=== PATIENT | female | born 1970 | race Caucasian/White ===

== ENCOUNTER → 2020-01-29 11:11 | Outpatient (BNVA) | payer MEDICARE, MEDICAID, SELFPAY | PROVIDERS: Family Provider Nurse Practitioner; Visit Provider Nurse Practitioner | DX: E04.1 Nontoxic single thyroid nodule (principal); B00.9 Herpesviral infection, unspecified; R30.0 Dysuria | CPT/HCPCS: 81000; 84439; 84443; 84481 ==

== ENCOUNTER 2020-02-19 10:42 | Outpatient (CLI) | payer MEDICARE, MEDICAID, SELFPAY ==
--- NOTE | 2020-02-19 11:00 | US_ITS ---
WS: [id number] THYROID ULTRASOUND HISTORY: nodule history COMPARISON: None available. Right lobe: 4.2 cm x 1.4 cm x 1.7 cm. Volume: 4.9 cm3. Normal size gland. Nearly isoechoic nodule in the posterior mid gland measures 1.6 x 1.0 x 0.8 cm. Du e to its size and appearance ultrasound follow-up is recommended. Left lobe: 3.7 cm x 1.2 cm x 1.0 cm. Volume: 2.3 cm3. Isoechoic nodule in the inferior pole measures 7 x 6 x 6 mm. There is an additional hypoechoic area w hich may be external to the thyroid and posterior of uncertain etiology. Isthmus: 0.3 cm. US/US thyroid [id number] IMPRESSION: 1. Bilateral thyroid nodules are isoechoic to the gland. 2. Recommend follow-up ultrasound in 6 months to document stability.
== END 2020-02-19 10:43 | disposition home or self-care (01) ==
PROVIDERS: Family Provider Nurse Practitioner; Visit Provider Nurse Practitioner
DX: E04.2 Nontoxic multinodular goiter (principal)
CPT/HCPCS: 76536

== ENCOUNTER 2020-05-16 18:42 | Inpatient (IN) | payer MEDICARE, MEDICAID, SELFPAY ==
[2020-05-16 18:48] VITALS: BP 118/73; PULSE 101; RESP 20; O2SAT 100; BMI 21.9
--- NOTE | 2020-05-16 18:48 | XR_ITS ---
WS: [id number] Portable AP upright chest, 05/16/2020 Clinical Data: cp Comparison: None. Findings: No nodules, masses or effusions are seen. The heart is normal. The pulmonary vascularity is not increased. No pneumonia or pneumothorax is seen. Monitor leads are on the chest wall. XR/XR chest 1V portable [id number] Impression: Negative chest.
--- NOTE | 2020-05-16 18:48 | ECG_ITS ---
[facility] Test Date: 2020-05-16 Pat Name: Alexandria Delgado Department: Room: 105 Gender: Female Business Information Manager: CHIARA: 1970 Requested By: Renée Spencer Order Number: [id number] Quinton MD: Yane Carias M.D. Measurements Intervals [place] Rate: 98 P: 55 LA: 135 QRS: 44 QRSD: 97 T: 42 QT: 346 QTc: 443 Interpretive Statements SINUS RHYTHM INCOMPLETE RIGHT BUNDLE BRANCH BLOCK [90+ ms QRS DURATION, TERMINAL R IN V1/V2, 40+ ms S IN I/aVL/V4/V5/V6] No previous ECG available for comparison Electronically Signed On 05-17-2020 18:08:33 CDT by Yane Carias M.D. [id number] f
--- NOTE | 2020-05-16 18:55 | W.ED.ARRPALP ---
HPI - Arrhythmia/Palpitations General: Chief Complaint: Arrhythmia/Palpitations Stated Complaint: CP/ RAPID HEART RATE Time Seen by Provider: 05/16/20 18:45 Source: patient and EMS Mode of arrival: EMS Limitations: no limitations History of Present Illness: HPI narrative: 89-year-old female who has a history of stage IV renal disease but is not currently on dialysis. She states that she did get blood work today and then when she got home she stood up and felt faint and had palpitations. States that her heart rate was in the 160s and is currently in the 110s. She had some slight chest pain. She states she does feel improved currently though. She denies any vomiting or diarrhea. Denies any chest pain. She does appear anxious. Associated symptoms: Deny nausea or vomiting Review of Systems Const: Denies: fever(s), chills, body aches or change in appetite Eyes: Denies: blurry vision or eye discomfort ENMT: Denies: throat pain or dental pain Card: Reports: palpitations Resp: Denies: dyspnea GI: Denies: abdominal pain, nausea, vomiting or diarrhea : Denies: dysuria Musc: Denies: neck pain or back pain Skin/Breast: Denies: rash Neuro: Denies: headache(s) Psych: Denies: depression Chuck/Lymph: Denies: easy bruising All/Imm: Denies: urticaria PFSH ED PFSH: Medical History Chronic hypokalemia Chronic iron deficiency anemia Chronic nonspecific colitis CKD (chronic kidney disease) stage 4, GFR 15-29 ml/min Gastric reflux Gout, unspecified Herpes simplex virus (HSV) infection History of Clostridioides difficile colitis IBS (irritable bowel syndrome) Mixed hyperlipidemia Slow transit constipation Thyroid nodule Surgical History History of section History of cholecystectomy History of parathyroidectomy History of tonsillectomy Family History Other Diabetes Hyperlipidemia Hypertension Social History Smoking and tobacco status: former smoker Second hand smoke exposure: No Smoking risk assessment/counseling performed?: No Alcohol intake: unknown Desire information about alcohol rehabilitation?: No Counseling given: No Desire information about substance/drug rehabilitation?: No Counseling given: No Caregiver/support person: No Lives independently: Yes Household members: significant other Marital status: Number of children: 3 service: No Current occupational status: disabled History of recent travel: No Current gender identity: Female Physical Exam Const: COMMON NORMALS: no acute distress, patient oriented x3 and healthy appearing HENMT: COMMON NORMALS: normocephalic and atraumatic HEAD & SCALP: normocephalic and atraumatic Eye: COMMON NORMALS: Equal, round and reactive pupils present and EOMs intact bilaterally PUPIL: Yes Equal, round and reactive pupils present Neck/C-Spine: COMMON NORMALS: full ROM and supple Chest: COMMONS NORMALS: normal inspection of the chest and normal palpation of entire chest wall Resp: COMMON NORMALS: normal respiratory effort, No retractions, No use of accessory muscles and clear to auscultation bilaterally AUSCULTATION: clear to auscultation bilaterally Cardio: COMMON NORMALS: regular rhythm and No murmurs present (Cardio) RATE: tachycardic RHYTHM: regular rhythm GI: COMMON NORMALS: Normal to inspection, nondistended, normoactive bowel sounds present, Soft to palpation, non-tender and no masses PALPATION: Yes Soft to palpation Extremity: COMMON NORMALS: normal to inspection and full ROM Neuro: COMMON NORMALS: patient oriented x3, moves all extremities and no focal motor deficits Psych: COMMON NORMALS: mental status grossly normal, Normal thought process present and cooperative THOUGHT PROCESS: Normal thought process present Skin: COMMON NORMALS: no rashes or lesions noted and no wounds GENERAL SKIN EXAM: no rashes or lesions noted Course Vital Signs: Vital signs: Vital Signs Pulse Rate 88 05/16/20 22:00 Respiratory Rate 16 05/16/20 22:00 Blood Pressure 95/71 05/16/20 22:00 Pulse Oximetry 100 05/16/20 22:00 MDM - Arrhythmia/Palpitations MDM Narrative: Medical decision making narrative: Sasha presents here with chest pain. She has had minimal chest pain here. Her delta troponin is 11 I spoke to hospitalist will admit. She has no signs of pulmonary embolism. Patient has been stable while in the ER. Lab Data: Labs: Lab Results 10/15/20 10/15/20 10/15/20 Range/Units 19:22 19:22 19:22 WBC 10.6 H (4.0-10.0) 10^3/ uL RBC 3.58 L (4.1-5.3) 10^6/u L Hgb 7.7 L (11.5-15.3) g/dL Hct 27.8 L (37.0-47.0) % MCV 77.7 L (81-99) fL MCH 21.5 L (28.0-34.0) pg MCHC 27.7 L (30.0-36.0) g/dL RDW 21.0 H (12.1-15.1) % Plt Count 395 (130-400) 10^3/c mm MPV 9.2 (7.4-10.4) fL Neut % (Auto) 76.9 % Lymph % (Auto) 13.7 % [place] % (Auto) 6.3 % Eos % (Auto) 2.1 % Baso % (Auto) 0.7 % Neut # (Auto) 8.16 H (1.8-7.7) 10^3/u L Lymph # (Auto) 1.5 (0.8-4.8) 10^3/u L [place] # (Auto) 0.7 (0.2-0.9) 10^3/u L Eos # (Auto) 0.2 (0.0-0.8) 10^3/u L Baso # (Auto) 0.1 (0.0-0.1) 10^3/u L Nucleated RBC % (a uto) 0 % Nucleated RBCs # 0.0 /100WBC Sodium 144 (136-145) mmol/L Potassium 4.5 (3.5-5.1) mmol/L Chloride 111 H (98-107) mmol/L Carbon Dioxide 22 (22-29) mmol/L Anion Gap 15.5 (5-19) BUN 42 H (6-20) mg/dL Creatinine 2.4 H (0.5-0.9) mg/dL GFR Calculation 21.5 L (90-130) mL/min Glucose 103 (65-115) mg/dL Calculated Osmolal ity 309 H (285-295) mOsm/k g Calcium 8.9 (8.5-10.5) mg/dL Total Bilirubin 0.2 (0.15-1.2) mg/dL AST 36 H (0-32) U/L ALT 37 H (0-33) U/L Alkaline Phosphata se 101 (35-105) IU/L Troponin T Baselin e 33 H (0-10) ng/L Troponin T 120 Min dania (0-10) ng/L Delta Troponin T (0-10) ABS# Total Protein 5.8 L (6.6-8.7) g/dL Albumin 3.4 L (3.5-5.2) g/dL Globulin 2.4 (1.3-4.6) g/dL 10/15/20 Range/Units 21:15 WBC (4.0-10.0) 10^3/ uL RBC (4.1-5.3) 10^6/u L Hgb (11.5-15.3) g/dL Hct (37.0-47.0) % MCV (81-99) fL MCH (28.0-34.0) pg MCHC (30.0-36.0) g/dL RDW (12.1-15.1) % Plt Count (130-400) 10^3/c mm MPV (7.4-10.4) fL Neut % (Auto) % Lymph % (Auto) % [place] % (Auto) % Eos % (Auto) % Baso % (Auto) % Neut # (Auto) (1.8-7.7) 10^3/u L Lymph # (Auto) (0.8-4.8) 10^3/u L [place] # (Auto) (0.2-0.9) 10^3/u L Eos # (Auto) (0.0-0.8) 10^3/u L Baso # (Auto) (0.0-0.1) 10^3/u L Nucleated RBC % (a uto) % Nucleated RBCs # /100WBC Sodium (136-145) mmol/L Potassium (3.5-5.1) mmol/L Chloride (98-107) mmol/L Carbon Dioxide (22-29) mmol/L Anion Gap (5-19) BUN (6-20) mg/dL Creatinine (0.5-0.9) mg/dL GFR Calculation (90-130) mL/min Glucose (65-115) mg/dL Calculated Osmolal ity (285-295) mOsm/k g Calcium (8.5-10.5) mg/dL Total Bilirubin (0.15-1.2) mg/dL AST (0-32) U/L ALT (0-33) U/L Alkaline Phosphata se (35-105) IU/L Troponin T Baselin e (0-10) ng/L Troponin T 120 Min dania 44.46 H (0-10) ng/L Delta Troponin T 11.46 H* (0-10) ABS# Total Protein (6.6-8.7) g/dL Albumin (3.5-5.2) g/dL Globulin (1.3-4.6) g/dL EKG Data^: EKG 1: Attestation: I personally reviewed and interpreted this EKG as follows: EKG interpretation date: 05/16/20 EKG interpretation time: 18:56 Interpretation: Normal sinus rhythm heart rate [address] or T wave normalities QRS 97 QTc 402 EKG 2: Attestation: I personally reviewed and interpreted this EKG as follows: EKG interpretation date: 05/16/20 EKG interpretation time: 21:14 Interpretation: Normal sinus rhythm heart rate [address] or T wave abnormalities QRS 99 QTc 414 Discharge Plan Discharge Patient Disposition: Home Clinical Impression: Chest pain Qualifiers: Chest pain type: unspecified Qualified Code(s): R07.9 - Chest pain, unspecified Condition: Stable Prescriptions: No Action potassium chloride 20 mEq tablet,ER particles/crystals PO RF: 0 prednisone 10 mg tablet PO RF: 0 omeprazole 40 mg capsule,delayed release(DR/EC) PO RF: 0 ergocalciferol (vitamin D2) 1,250 mcg (50,000 unit) capsule PO RF: 0 hydrocodone-acetaminophen 5-325 mg tablet PO RF: 0 febuxostat 40 mg tablet PO RF: 0 acyclovir 800 mg tablet 800 mg PO DAILY PRN (Reason: for cold sore) Qty: 30 RF: 2 Referrals: Zaki Banerjee FNPAditiC [Family Provider] - Coding Level of Care Code ED Material Chaser for Chg Fwd Exam Comprehensive
[2020-05-16] MEDS: sodium chloride 0.9% 500 ML 999 ML IV (19:27)
[2020-05-16] MEDS: LORazepam 2 mg/mL INJ 1 mL 0.5 MG IVP (19:27)
[2020-05-16 19:36] LABS: Basophils # 0.1 10^3/uL (0.0-0.1); Basophils % 0.7 %; Eosinophils # 0.2 10^3/uL (0.0-0.8); Eosinophils % 2.1 %; Hematocrit 27.8 % (37.0-47.0); Hemoglobin 7.7 g/dL (11.5-15.3); Lymphocytes # 1.5 10^3/uL (0.8-4.8); Lymphocytes % 13.7 %; Mean Corpuscular HGB Conc 27.7 g/dL (30.0-36.0); Mean Corpuscular Hemoglobin 21.5 pg (28.0-34.0); Mean Corpuscular Volume 77.7 fL (81-99); Mean Platelet Volume 9.2 fL (7.4-10.4); Monocytes # 0.7 10^3/uL (0.2-0.9); Monocytes % 6.3 %; Neutrophils # 8.16 10^3/uL (1.8-7.7); Neutrophils % 76.9 %; Nucleated Red Blood Cells % 0 %; Platelet Count 395 10^3/cmm (130-400); Red Blood Count 3.58 10^6/uL (4.1-5.3); White Blood Count 10.6 10^3/uL (4.0-10.0)
[2020-05-16 19:50] LABS: Alanine Aminotransferase 37 U/L (0-33); Albumin Level 3.4 g/dL (3.5-5.2); Alkaline Phosphatase 101 IU/L (35-105); Anion Gap 15.5 (5-19); Aspartate Amino Transferase 36 U/L (0-32); Blood Urea Nitrogen 42 mg/dL (6-20); Calcium 8.9 mg/dL (8.5-10.5); Carbon Dioxide 22 mmol/L (22-29); Chloride 111 mmol/L (98-107); Globulin 2.4 g/dL (1.3-4.6); Glomerular Filtration Rate 21.5 mL/min (90-130); Glucose 103 mg/dL (65-115); Osmolality Calculated 309 mOsm/kg (285-295); Potassium 4.5 mmol/L (3.5-5.1); Sodium 144 mmol/L (136-145); Total Bilirubin 0.2 mg/dL (0.15-1.2); Total Protein 5.8 g/dL (6.6-8.7); Troponin(5th) Baseline 33 ng/L (0-10)
--- NOTE | 2020-05-16 20:48 | ECG_ITS ---
[facility] Test Date: 2020-05-16 Pat Name: Alexandria Delgado Department: Room: 105 Gender: Female Hand Edger: : 1970 Requested By: Renée Spencer Order Number: [id number] Quinton MD: Yane Carias M.D. Measurements Intervals [place] Rate: 85 P: 54 NV: 142 QRS: 47 QRSD: 99 T: 43 QT: 372 QTc: 443 Interpretive Statements SINUS RHYTHM No previous ECG available for comparison Electronically Signed On 05-17-2020 18:19:07 CDT by Yane Carias M.D. [id number]
[2020-05-16 21:28] VITALS: BP 99/52; PULSE 84; RESP 16; O2SAT 100
[2020-05-16 21:49] LABS: Troponin 5 2HR 44.46 ng/L (0-10)
[2020-05-16 21:51] LABS: Troponin 5 2HR Delta 11.46 ABS# (0-10)
[2020-05-16 22:00] VITALS: BP 95/71; PULSE 88; RESP 16; O2SAT 100
--- NOTE | 2020-05-16 22:24 | P.HP_ITS ---
Providers/Chief Complaint Chief Complaint: CP/ RAPID HEART RATE History of Present Illness Alexandria Delgado is a 49 year old female who carries history of chronic kidney disease stage IV currently following up with security systems integrator, anemia of chronic disease, without any previous history of coronary disease came in with chief complaint of chest pain. Patient is stating that her chest pain started today which he describes as pressure-like sensation, left-sided, substernal, lasted for about 2 to 3 hours then she started experiencing palpitations, her chest pain was radiating towards left shoulder and arm, nitroglycerin and morphine helped her symptoms. She did not notice any nausea, vomiting, shortness of breath. She has been experiencing headache with her palpitations, no blurry vision or signs of meningismus. At home when she checked her heart rate it was above 200, however in the ER her heart rate is in 90s. Her chest pain at the time of evaluation is 4/10 has received third nitroglycerin and morphine. Diagnostics in the ER revealed significant delta troponin, creatinine around baseline, anemia of chronic disease, EKG does not show ischemic or infarctive changes, in the ER she has received morphine multiple doses, nitroglycerin, aspirin 324 mg, Review of Systems Const: Reports: body aches and fatigue; Denies: fever(s) or chills Eyes: Denies: change in vision ENMT: Denies: throat pain Card: Reports: chest pain and palpitations; Denies: dyspnea on exertion or orthopnea Resp: Denies: dyspnea GI: Denies: abdominal pain : Denies: flank pain Musc: Denies: neck pain Skin/Breast: Denies: rash Neuro: Denies: headache(s) Psych: Reports: anxiety Endo: Denies: polyuria Chuck/Lymph: Denies: easy bruising All/Imm: Denies: urticaria Medications/Allergies Home Medications Medication Instructions Recorded Confirmed Last Taken Type acyclovir 800 mg tablet 800 mg PO DAILY PRN #30 tab 01/29/20 01/29/20 Unknown Rx ergocalciferol (vitamin D2) 1,250 ea PO 01/29/20 01/29/20 Unknown History mcg (50,000 unit) capsule febuxostat 40 mg tablet ea PO 01/29/20 01/29/20 Unknown History hydrocodone 5 mg-acetaminophen 325 tab PO 01/29/20 01/29/20 Unknown History mg tablet omeprazole 40 mg capsule,delayed mg PO 01/29/20 01/29/20 Unknown History release potassium chloride 20 mEq meq PO 01/29/20 01/29/20 Unknown History tablet,extended release(part/cryst) prednisone 10 mg tablet ea PO 01/29/20 01/29/20 Unknown History Allergies Allergy/AdvReac Type Severity Reaction Status Date / Time clindamycin Allergy Unknown Unknown Verified 05/16/20 18:56 diphenhydramine Allergy Unknown Unknown Verified 05/16/20 18:56 [From Benadryl] ferumoxytol [From Feraheme] Allergy Unknown Unknown Verified 05/16/20 18:56 fluconazole [From Diflucan] Allergy Unknown Unknown Verified 05/16/20 18:56 flurbiprofen [From Ansaid] Allergy Unknown Unknown Verified 05/16/20 18:56 PFSH Acute PFSH: Medical History Chronic hypokalemia Chronic iron deficiency anemia Chronic nonspecific colitis CKD (chronic kidney disease) stage 4, GFR 15-29 ml/min Gastric reflux Gout, unspecified Herpes simplex virus (HSV) infection History of Clostridioides difficile colitis IBS (irritable bowel syndrome) Mixed hyperlipidemia Slow transit constipation Thyroid nodule Surgical History History of section History of cholecystectomy History of parathyroidectomy History of tonsillectomy Family History Other Diabetes Hyperlipidemia Hypertension Social History Smoking and tobacco status: former smoker Second hand smoke exposure: No Smoking risk assessment/counseling performed?: No Alcohol intake: unknown Desire information about alcohol rehabilitation?: No Counseling given: No Desire information about substance/drug rehabilitation?: No Counseling given: No Caregiver/support person: No Lives independently: Yes Household members: significant other Marital status: Number of children: 3 service: No Current occupational status: disabled History of recent travel: No Current gender identity: Female Vitals/I&O/Wt Last Vital Signs Pulse 88 05/16/20 22:00 Resp 16 05/16/20 22:00 BP 95/71 05/16/20 22:00 Pulse Ox 100 05/16/20 22:00 Weight last 48 hrs Weight 59.874 kg Physical Exam Narrative: EXAM NARRATIVE: Middle-age female, appears more than stated age Was saturating well on room air when I entered the room Seemed to be in distress and was describing chest pain 4/10 S1, S2, I do not appreciate any murmur, no tachycardia or heart failure, heart rate in 90s, blood pressure 118 mmHg Abdomen soft nontender bowel sound present Lungs are clear to auscultation No active fluid overloaded state Skin without any ulcer or gangrene EOMI, PERRLA No neurological deficit Appropriate mood and affect Data : 05/16/20 19:22 05/16/20 19:22 A&P Assessment and plan (1) Unstable angina: Typical chest pain, unstable angina, Without ischemic or infarct changes on EKG, significant delta troponin, I am still waiting on 6-hour troponin, At this point she will need coronary angiogram but because of chronic kidney disease and creatinine around 2.4 it has to be coordinated between her security systems integrator and food service team member, I would pursue Lexiscan stress test along with echocardiogram I would not initiate N STEMI protocol at this point, serial EKGs and troponins, Monitor closely on cardiac telemetry floor, if chest pain becomes persistent my threshold to start heparin will be low Status: Acute (2) Anemia of chronic disease: No active GI bleed, recent colonoscopy revealed hemorrhoids, 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 after midnight Full code History of gout: Hold febuxostat and steroids Attestations Medical Necessity Statement*: Anticipating discharge in less than 48 hours currently I am admitting to rule out coronary ischemia with Lexiscan stress test for unstable angina, her stay in the hospital with further be decided after Lexiscan stress test Time Spent in Patient Care: (>than 50% of time spent in counselling and/or direct pt care on unit) . 50mins Coding Level of Care Code Acute Mortgage Manager for Chg Fwd Diagnoses Unstable angina I20.0 Anemia of chronic disease D63.8
[2020-05-16] MEDS: morphine 4 mg/mL SDV 1 mL IVP (22:26)
[2020-05-16 23:08] VITALS: BP 105/66; PULSE 86; RESP 16; O2SAT 99
[2020-05-16] MEDS: nitroglycerin 0.4 mg sublingual Tablet SUBLINGUAL (23:13)
[2020-05-16 23:38] VITALS: BP 118/77; PULSE 90; RESP 20; TEMP 36.6; O2SAT 100
--- NOTE | 2020-05-16 23:48 | PC.NURSE ---
Called Dr. Hair regarding patients chest pain 11/09 that is radiating to her shoulder. reported her current set of vitals signs. Orders received for 2mg of Morphine IVP x1.
[2020-05-17] VITALS (15 sets, daily range): BP systolic 90–136; BP diastolic 56–86; PULSE 81–99; RESP 14–20; TEMP 36.3–37.1; O2SAT 91–100
--- NOTE | 2020-05-17 00:37 | PC.NURSE ---
Dr. Hair notified of patients chest pain unrelieved by 2mg of Morphine IVP. Patient rates it a 5 to 6 out of 10. NO orders received at this time. Will await new orders.
[2020-05-17 00:49] LABS: D Dimer 0.79 ug/mIFEU (0-0.59)
[2020-05-17 01:01] LABS: Basophils # 0.1 10^3/uL (0.0-0.1); Basophils % 0.9 %; Eosinophils # 0.3 10^3/uL (0.0-0.8); Eosinophils % 2.2 %; Hematocrit 28.3 % (37.0-47.0); Hemoglobin 7.7 g/dL (11.5-15.3); Lymphocytes # 1.7 10^3/uL (0.8-4.8); Lymphocytes % 14.4 %; Mean Corpuscular HGB Conc 27.2 g/dL (30.0-36.0); Mean Corpuscular Hemoglobin 21.2 pg (28.0-34.0); Mean Corpuscular Volume 77.7 fL (81-99); Mean Platelet Volume 8.7 fL (7.4-10.4); Monocytes # 0.8 10^3/uL (0.2-0.9); Monocytes % 7.2 %; Neutrophils # 8.63 10^3/uL (1.8-7.7); Neutrophils % 74.9 %; Nucleated Red Blood Cells % 0 %; Platelet Count 401 10^3/cmm (130-400); Red Blood Count 3.64 10^6/uL (4.1-5.3); Red Cell Distribution Width 21.2 % (12.1-15.1); White Blood Count 11.5 10^3/uL (4.0-10.0)
[2020-05-17 01:16] LABS: Anion Gap 14.3 (5-19); Blood Urea Nitrogen 40 mg/dL (6-20); Calcium 8.5 mg/dL (8.5-10.5); Carbon Dioxide 21 mmol/L (22-29); Chloride 109 mmol/L (98-107); Glomerular Filtration Rate 21.5 mL/min (90-130); Glucose 104 mg/dL (65-115); Osmolality Calculated 300 mOsm/kg (285-295); Potassium 4.3 mmol/L (3.5-5.1); Sodium 140 mmol/L (136-145)
[2020-05-17 01:17] LABS: Troponin 5 6HR 41.63 ng/L (0-10); Troponin 5 6HR Delta 8.63 ng/L (0-12)
--- NOTE | 2020-05-17 04:47 | PC.NURSE ---
Patient complaint of chest pain rated a 6 or a 7. States Morphine does not help with her pain. Called Dr. Hair and he is going to place orders.
[2020-05-17] MEDS: lidocaine 2% viscous 15 ML, aluminum-mag hydrox-simethicon 30 ML, sucralfate oral liq 1 GM PO (05:03)
--- NOTE | 2020-05-17 05:10 | PC.NURSE ---
Spoke with Dr. Hair reguarding patients blood pressure 90/58 and 2mg of Diludid order. Orders to give 1mg of Diludid IVP x1 if blood pressure is soft. Read back verbal order.
[2020-05-17] MEDS: HYDROmorphone 1 mg/mL INJ 1 mL IVP (05:14)
--- NOTE | 2020-05-17 06:20 | NMCV_ITS ---
NM michi perf SPECT r/s* [id number] Alexandria Delgado Age: 49 Gender: F : 1970 Exam Date: 05/17/2020 06:58 Ordering Phys: Chuckie Hair MD Technologist: ERNESTINE Dao Exam Location: [facility] Indications: CHEST PAIN/ RAPID HEART RATE STRESS TEST Please see separate stress test report in [facility] for full findings IMAGE PROTOCOL Rest/Stress 1 Radiopharmaceutical Dose (mCi) Administration Site Administered by Rest: Tc-99m 10.8 IV ERNESTINE Dao Sestamibi Stress:Tc-99m 32.7 IV ERNESTINE Alvarado Sestamibi Rest: 17-May-2020 60 Discovery 630 Stress: 17-May-2020 30 Discovery 630 A small to moderate area SPECT RESULTS Technical Quality: Good Raw Data Analysis: Subdiaphragmatic activity Image Corrections: No attenuation or motion correction applied Summed Stress Score: 5 Summed Rest Score: 9 Summed Difference Score: 0 PERFUSION FINDINGS Small to moderate area of decreased tracer uptake in the inferior, inferolateral and apical lateral region regions with subtle area of reversibility with respect to the supine imaging. However with respect to the prone imaging, there was no significant reversible defects. FUNCTIONAL RESULTS (calculated via Gated SPECT) Stress Image LV EF (%): 82 Stress EDV (mL):89 TID: 1.33 Stress ESV (mL):16 FUNCTIONAL FINDINGS: Segmental wall motion analysis revealing no gross wall motion abnormalities. IMPRESSIONS 1. Myocardial perfusion imaging revealing a small to moderate area of inconsistent reversible defect in the inferolateral regions, suggestive of myocardial scarring with possible carolyn-infarction ischemia in the distribution of the right coronary artery/circumflex artery. The elevated transient ischemic dilatation ratio may suggest endocardial ischemia. The reliability of this finding is questionable. 2. Normal LV ejection fraction of 82%. 3. LV wall motion analysis revealing no gross wall motion normalities. 4. Normal LV volume. No similar previous studies are viral for comparison Dr Peri Martinez MD FAC (Electronically Signed) Final Date: 17 May 2020 11:26 S
--- NOTE | 2020-05-17 07:15 | PC.NURSE ---
Patient taken to nuclear medicine.
[2020-05-17] MEDS: regadenoson 0.4 Mg/5 ml Syringe IVP (07:48)
[2020-05-17] MEDS: aminophylline 25 mg/mL SDV 10 mL IVP ×3 (08:05→08:28)
[2020-05-17] MEDS: nitroglycerin 0.4 mg sublingual Tablet SUBLINGUAL ×3 (08:28→09:25)
--- NOTE | 2020-05-17 09:21 | PC.NURSE ---
Patient c/o pain in left chest and arm. 12/09. Patient states pain is different from admission and started after stress test.
[2020-05-17] MEDS: aspirin 81 mg EC Tablet PO (09:25)
[2020-05-17] MEDS: sennosides-docusate Tablet 1 TAB PO (09:25)
[2020-05-17] MEDS: pantoprazole DR 40 mg Tablet PO (09:25)
[2020-05-17] MEDS: heparin 5,000 unit/mL INJ 1 mL 5000 UNIT SUBCUT ×2 (09:26)
[2020-05-17] MEDS: pneumococcal (23 valent) SDV 0.5 mL IM (09:31)
--- NOTE | 2020-05-17 09:46 | ECG_ITS ---
[facility] Test Date: 2020-05-17 Pat Name: Alexandria Delgado Department: Room: 105 Gender: Female Scalper Operator: : 1970 Requested By: Reddy Lea Order Number: [id number] Quinton MD: Yane Carias M.D. Measurements Intervals [place] Rate: 93 P: 51 NV: 114 QRS: 24 QRSD: 101 T: 36 QT: 350 QTc: 435 Interpretive Statements SINUS RHYTHM WITH SHORT NV INTERVAL Compared to ECG 05/16/2020 21:14:36 Short NV interval now present Electronically Signed On 05-17-2020 17:57:07 CDT by Yane Carias M.D. [id number]
--- NOTE | 2020-05-17 10:12 | ECG_ITS ---
[facility] Test Date: 2020-05-17 Pat Name: Alexandria Delgado Department: Room: 105 Gender: Female Data Modeling Specialist: : 1970 Requested By: Chuckie Hair Order Number: [id number] Quinton MD: Peri Martinez M.D. Interpretive Statements NAME OF STUDY: LEXISCAN SESTAMIBI STRESS TEST INDICATION: Angina, PROCEDURE: At the baseline, the EKG revealed normal sinus rhythm with incomplete right bundle branch block pattern. Normal ST-T's. The baseline blood pressure was 120/83 mm Hg with a heart rate of 79 beats/min. Lexiscan was infused over a period of 20 seconds. A total of 0.4 milligrams of Lexiscan was infused. The stress phase was continued for a total of 5 minutes. Heart rate at the end of the stress phase was 104 with a blood pressure 126/81. The EKG at the peak infusion revealed no significant changes. Sestamibi was injected 20 seconds after the Lexiscan infusion. Patient had a chest pain with Lexiscan infusion. Was given sublingual nitro x1 and Aminophyllin total of 75 mg IV. Symptoms resolved Blood pressure at the end of the recovery phase was 107/82 with a heart rate of 99 per minute. CONCLUSION: 1. Nonspecific ST-T changes with the LexiScan infusion 2. No LexiScan induced chest pain or cardiac arrhythmia 3. Normal blood pressure and heart rate response 4. Sestamibi/sestamibi perfusion scan pending; see separate report. Electronically Signed On 05-20-2020 21:54:44 CDT by Peri Martinez M.D. [email or web address]/[id number]
--- NOTE | 2020-05-17 10:45 | PC.NURSE ---
Dra Lea at bedside. Patient reports continued chest pain. Described as uncomfortable. Dr. Lea ordered nitro paste and stated pain to have 2 mg morphine as ordered prn.
[2020-05-17] MEDS: nitroglycerin 1 gm/inch oint Pkt 1 INCH TOPICAL ×2 (10:47→21:45)
[2020-05-17] MEDS: morphine 4 mg/mL SDV 1 mL 2 MG IVP ×2 (10:48)
--- NOTE | 2020-05-17 11:35 | P.PN_ITS ---
Subjective Subjective: Interval history: Was called this morning by RN that patient developed chest pain after she came back from [facility]. Apparently patient also had pain during the procedure. Patient had minimal response to nitroglycerin sublingual. She has been having significant pain since yesterday. She denies previous history of coronary artery disease or intervention/evalu ation. It appears that many years ago she had episode of NSAID induced related GI bleed and after that she developed chronic kidney disease. Earlier this year she had fistula placed in her right arm and reports that once she had procedure to dilate the vessel. She was not cleared by vascular surgeon to use fistula for dialysis. I have discussed case with Dr. Martinez who will see patient in consu ltation as I think further evaluation with coronary angiogram needs to be performed. I have discussed this with patient and we went over risks and benefits potentially developing worsening kidney function requiring dialysis. Patient reports that in 2009 when she had upper GI bleed she had some findings on upper endoscopy she cannot recall but no active intervention was performed at that time. Vitals/I&O/Wt Last Vital Signs Temp 97.6 F 05/17/20 03:35 Pulse 99 05/17/20 08:29 Resp 16 05/17/20 10:48 BP 107/82 05/17/20 08:29 Pulse Ox 96 05/17/20 10:48 05/16/20 05/17/20 05/17/20 22:59 06:59 14:59 Intake Total 480 / 480 Balance 480 / 480 Weight last 48 hrs Weight 59.874 kg Data : 05/17/20 00:49 05/17/20 00:49 A&P Assessment and plan (1) Unstable angina: Patient meets criteria for non-ST elevation [place], type I versus type II. Status: Acute (2) Anemia of chronic disease: Patient appears to have acute component of anemia as her hemoglobin is down to 7.7 compared to more than eleven 1 year ago. GI bleed cannot be completely ruled out. Status: Acute Additional A&P Information DVT prophylaxis: Heparin Cardiac diet, n.p.o. after midnight Full code History of gout: Hold febuxostat and steroids PLAN: Will DC heparin for now and change Protonix to IV twice daily. We will give patient 1 unit of PRBC and proceed with Initial anemia work-up. Patient may require further evaluation with upper endoscopy. She denies taking NSAIDs at home. Discussed with Dr. Martinez who will see patient in consultation. Patient will likely require coronary angiogram. Discussed with Dr. Granda to perform upper endoscopy prior to coronary angiography to make sure we do not have any concerning findings prior to putting stent and loading patient with Plavix and heparin. Discussed with Dr. Rubin who will see patient in consultation and if creatinine starts going up tomorrow will consider dialysis. Attestations Medical Necessity Statement*: Patient with non-ST elation [place] requires close inpatient monitoring, treatment and evaluation. Time Spent in Patient Care: Greater than 35 minutes Coding Level of Care Code Acute Certified Registered Nurse Practitioner for g Fwd Diagnoses Unstable angina I20.0 Anemia of chronic disease D63.8
[2020-05-17 12:26] LABS: Ferritin 6 ng/mL (15-150); Iron 18 ug/dL (37-145); Percent Saturation 5.5 % (20-50); Total Iron Binding Capacity 322 mcg/dl; Unsaturated Iron Binding 304 ug/dL (112-347)
--- NOTE | 2020-05-17 12:30 | P.CONIM_ITS ---
Providers/Reason For Consult Consulting Physican/Specialty*: General Surgery Mac Granda MD Reason for Consult*: Requesting EGD. Anemia, history of gastritis, possible need for anticoagulation. Attending Physician: Reddy Lea MD History of Present Illness History of Present Illness Alexandria Delgado is a 49 year old female who presented with substernal chest pressure. She was found to be anemic, although she says her anemia is somewhat chronic and every time her hemoglobin has been checked over the past year it has been around 8. She does mention that she has had a little bit more heartburn than usual recently. She attributes this to perhaps getting some type of a viral syndrome that she thinks may have been mimicking those symptoms. She denies any history of melena or hematemesis. She had an EGD and colonoscopy at [facility] in [place] back in September. She was told she had gastritis and a hiatal hernia, and was started on omeprazole at that time which she continues to take daily. She denies any previous diagnoses of peptic ulcer disease otherwise. She does not take NSAIDs. She drinks 1 cup of caffeinated coffee a day but denies any ongoing use of tobacco or ethanol. She has no family history of upper GI neoplasia. Dr. Lea had asked me to evaluate the patient in the event that Dr. Martinez wanted to proceed with a procedure that may require concomitant or ongoing anticoagulation. Meds/Allergies Home Medications and Allergies Home Medications Medication Instructions Recorded Confirmed Last Taken Type acyclovir 800 mg tablet 800 mg PO DAILY PRN #30 tab 01/29/20 05/17/20 Unknown Rx ergocalciferol (vitamin D2) 1,250 50,000 unit PO Q7D 01/29/20 05/17/20 Unknown History mcg (50,000 unit) capsule febuxostat 40 mg tablet 40 mg PO DAILY 01/29/20 05/17/20 Unknown History hydrocodone 5 mg-acetaminophen 325 1 tab PO BID PRN 01/29/20 05/17/20 Unknown History mg tablet omeprazole 40 mg capsule,delayed 40 mg PO BID 01/29/20 05/17/20 Unknown History release potassium chloride 20 mEq 20 meq PO BID 01/29/20 05/17/20 Unknown History tablet,extended release(part/cryst) aspirin 81 mg PO DAILY 05/17/20 05/17/20 Unknown History clonazepam [Klonopin] 1 mg PO DAILY PRN 05/17/20 05/17/20 Unknown History dicyclomine 10 mg PO QID PRN 05/17/20 05/17/20 Unknown History gabapentin 200 mg PO DAILY 05/17/20 05/17/20 Unknown History ondansetron HCl [Zofran] 4 mg PO Q8H PRN 05/17/20 05/17/20 Unknown History sodium bicarbonate 650 mg PO BID 05/17/20 05/17/20 Unknown History Allergies Allergy/AdvReac Type Severity Reaction Status Date / Time clindamycin Allergy Unknown Unknown Verified 05/16/20 18:56 diphenhydramine Allergy Unknown Unknown Verified 05/16/20 18:56 [From Benadryl] ferumoxytol [From Feraheme] Allergy Unknown Unknown Verified 05/16/20 18:56 fluconazole [From Diflucan] Allergy Unknown Unknown Verified 05/16/20 18:56 flurbiprofen [From Ansaid] Allergy Unknown Unknown Verified 05/16/20 18:56 Current Medications Current Medications Generic Name Dose Route Start Last Admin Trade Name Freq PRN Reason Stop Dose Admin Aminophylline 25 mg 05/17/20 06:21 05/17/20 08:28 Aminophylline IVP 05/18/20 06:20 25 mg Q2M PRN Administration see dose instructions Aspirin 81 mg 05/17/20 09:00 05/17/20 09:25 Aspirin Ec PO 81 mg DAILY TYRON Administration Morphine Sulfate 2 mg 05/17/20 00:23 05/17/20 10:48 Morphine IVP 2 mg Q4H PRN Administration SEVERE PAIN Nitroglycerin 0.4 mg 05/17/20 06:21 05/17/20 09:25 Nitrostat SUBLINGUAL 05/18/20 06:20 1 tab Q5M PRN Administration CHEST PAIN Nitroglycerin 1 inch 05/17/20 10:30 05/17/20 10:47 Nitro-Bid TOPICAL 1 inch Q6H TYRON Administration Senna/Docusate Sodium 1 tab 05/17/20 09:00 05/17/20 09:34 Senna-S PO Not Given DAILY TYRON PFSH Acute PFSH: Medical History (Updated 05/17/20 @ 12:38 by Mac Granda MD) Chronic hypokalemia Chronic iron deficiency anemia Chronic nonspecific colitis CKD (chronic kidney disease) stage 4, GFR 15-29 ml/min Gastric reflux Gastritis, hiatal hernia per patient Gout, unspecified Herpes simplex virus (HSV) infection History of Clostridioides difficile colitis IBS (irritable bowel syndrome) Mixed hyperlipidemia Slow transit constipation Thyroid nodule Surgical History History of section History of cholecystectomy History of parathyroidectomy History of tonsillectomy Family History Other Diabetes Hyperlipidemia Hypertension Social History Smoking and tobacco status: former smoker Second hand smoke exposure: No Smoking risk assessment/counseling performed?: No Alcohol intake: unknown Desire information about alcohol rehabilitation?: No Counseling given: No Desire information about substance/drug rehabilitation?: No Counseling given: No Caregiver/support person: No Lives independently: Yes Household members: significant other Marital status: Number of children: 3 service: No Current occupational status: disabled History of recent travel: No Current gender identity: Female Vitals/I&O/Wt Last Vital Signs Temp 97.5 F L 05/17/20 11:39 Pulse 96 05/17/20 11:39 Resp 18 05/17/20 11:39 BP 136/85 05/17/20 11:39 Pulse Ox 100 05/17/20 11:39 05/16/20 05/17/20 05/17/20 22:59 06:59 14:59 Intake Total 480 / 480 Balance 480 / 480 Weight last 48 hrs Weight 132 lb Physical Exam Narrative: EXAM NARRATIVE: The patient was encountered in her room on the cardiac care unit. She is in no distress. The pupils are equal. No carotid bruits are heard. The lungs are clear. The heart seems regular. The abdomen is completely soft and nontender. The extremities reveal no edema. Neurologically the patient is grossly intact. A&P Assessment and plan (1) Anemia of chronic disease: We briefly discussed an EGD. Having just had one of the 6 months ago, the patient is familiar with the procedure. She said she would be willing to proceed if necessary. While I was finishing my conversation with her, Dr. Lea and Dr. Martinez had been consulting with each other. In the end, they decided that they may just try to transfuse her and see if her symptoms improve since there is no obvious ongoing clinical evidence of bleeding and Dr. Martinez does not necessarily plan any aggressive procedures at this point. I will be available if needed if an EGD is reconsidered. Please call if I can be of further help. Status: Acute (2) History of gastritis: Status: Acute Consult Attestations Medical Necessity Statement: See admitting service's notation. Coding Level of Care Code Acute Bender Hand for [facility] Fwd Diagnoses Anemia of chronic disease D63.8 History of gastritis Z87.19
[2020-05-17 12:41] LABS: Vitamin B12 520 pg/mL (232-1245)
[2020-05-17 12:42] LABS: Folate Level 5.8 ng/mL (4.8-37.3)
--- NOTE | 2020-05-17 12:49 | PM.CONSULT ---
Providers/Reason For Consult Consulting Physican/Specialty*: NEFTALY Martinez MD/cardiology Reason for Consult*: Patient with chest pain Attending Physician: Reddy Lea MD History of Present Illness History of Present Illness Alexandria Delgado is a 49 year old female with a history of chronic stage IV kidney disease, is admitted to the hospital with complaints of chest pain and palpitations. She had a myocardial perfusion imaging today. She was having some chest pains during the stress test. Soon after coming back from the stress test, her chest pain got worse. Cardiology consult is requested for further cardiac evaluation and recommendations. This patient has a history of chronic any disease for the last 10 years or so. Her kidney function has been progressively getting worse. She is being followed by nephrology service in [place]. Yesterday, while at home, she started having rather sudden onset of chest discomfort associated with the palpitation. She had a pulse oximetry at the home and the heart rate was noted to be around 245. She repeated this is another oximeter at home and again the number was in the 240s. She came to the hospital for this reason. She has the pain radiating across the chest, sometimes to the left shoulder and also to the neck. This has been intermittent. She has pressure-like feeling in the chest all the time. Apparently she never had any similar pains in the past. No history for coronary artery disease, myocardial infarction or congestive heart failure. He was at the [facility] recently for dehydration and some systemic complaints. She was treated with IV fluids and some other medications. Details are not available. She is known to be anemic. She has a history of hyperparathyroidism and had a parathyroid surgery x2. She was told to have another parathyroid which may be hyperactive as well. But because of the kidney, it was not intervened. She had a hemodialysis 1 time and she was admitted to hospital with dehydration. After a week or so, the dialysis was stopped. She has an AV fistula placed in the right upper arm. She also was in the transplant list prior to the breakout. She has no history for hypertension, diabetes or dyslipidemia. The etiology of the renal failure is not clear. She has a history of pancreatitis. She is known to have iron deficiency anemia. Had multiple endoscopies in the past. She could not take iron infusion because it was causing pancreatitis?. No history for any CVA, peripheral artery disease, liver disease or bleeding disorders. Review of Systems Narrative: CONSTITUTIONAL: No fever or chills. Has been having some amount of generalized weakness/lethargy lately. EYES: No blurring of vision or other visual disturbances lately. ENT: No hoarseness of voice, auditory disturbances or sore throat. CARDIOVASCULAR: As mentioned above. RESPIRATORY: No significant cough. GASTROINTESTINAL: No hematemesis or melena. GENITOURINARY: No dysuria or hematuria. INTEGUMENTARY: No skin rashes or history of skin cancer. NEURO: No transient ischemic attacks or amaurosis. PSYCHIATRIC: No history of psychosis or major depression. HEMATOLOGIC: No bleeding disorders or significant anemia. ENDOCRINE: No history of polyuria or polydipsia. MUSCULOSKELETAL: No recent joint pain or swelling. ALLERGY/IMMUNOLOGY: As mentioned above. Meds/Allergies Home Medications and Allergies Home Medications Medication Instructions Recorded Confirmed Last Taken Type acyclovir 800 mg tablet 800 mg PO DAILY PRN #30 tab 01/29/20 05/17/20 Unknown Rx ergocalciferol (vitamin D2) 1,250 50,000 unit PO Q7D 01/29/20 05/17/20 Unknown History mcg (50,000 unit) capsule febuxostat 40 mg tablet 40 mg PO DAILY 01/29/20 05/17/20 Unknown History hydrocodone 5 mg-acetaminophen 325 1 tab PO BID PRN 01/29/20 05/17/20 Unknown History mg tablet omeprazole 40 mg capsule,delayed 40 mg PO BID 01/29/20 05/17/20 Unknown History release potassium chloride 20 mEq 20 meq PO BID 01/29/20 05/17/20 Unknown History tablet,extended release(part/cryst) aspirin 81 mg PO DAILY 05/17/20 05/17/20 Unknown History clonazepam [Klonopin] 1 mg PO DAILY PRN 05/17/20 05/17/20 Unknown History dicyclomine 10 mg PO QID PRN 05/17/20 05/17/20 Unknown History gabapentin 200 mg PO BEDTIME 05/17/20 05/18/20 Unknown History ondansetron HCl [Zofran] 4 mg PO Q8H PRN 05/17/20 05/17/20 Unknown History sodium bicarbonate 650 mg PO BID 05/17/20 05/17/20 Unknown History Allergies Allergy/AdvReac Type Severity Reaction Status Date / Time clindamycin Allergy Unknown Unknown Verified 05/16/20 18:56 diphenhydramine Allergy Unknown Unknown Verified 05/16/20 18:56 [From Benadryl] ferumoxytol [From Feraheme] Allergy Unknown Unknown Verified 05/16/20 18:56 fluconazole [From Diflucan] Allergy Unknown Unknown Verified 05/16/20 18:56 flurbiprofen [From Ansaid] Allergy Unknown Unknown Verified 05/16/20 18:56 Current Medications Current Medications Generic Name Dose Route Start Last Admin Trade Name Freq PRN Reason Stop Dose Admin Aminophylline 25 mg 05/17/20 06:21 05/17/20 08:28 Aminophylline IVP 05/18/20 06:20 25 mg Q2M PRN Administration see dose instructions Aspirin 81 mg 05/17/20 09:00 05/17/20 09:25 Aspirin Ec PO 81 mg DAILY TYRON Administration Morphine Sulfate 2 mg 05/17/20 00:23 05/17/20 10:48 Morphine IVP 2 mg Q4H PRN Administration SEVERE PAIN Nitroglycerin 0.4 mg 05/17/20 06:21 05/17/20 09:25 Nitrostat SUBLINGUAL 05/18/20 06:20 1 tab Q5M PRN Administration CHEST PAIN Nitroglycerin 1 inch 05/17/20 10:30 05/17/20 10:47 Nitro-Bid TOPICAL 1 inch Q6H TYRON Administration Senna/Docusate Sodium 1 tab 05/17/20 09:00 05/17/20 09:34 Senna-S PO Not Given DAILY TYRON PFSH Acute PFSH: Medical History (Updated 05/17/20 @ 12:57 by Peri Martinez MD) Chronic hypokalemia Chronic iron deficiency anemia Chronic nonspecific colitis CKD (chronic kidney disease) stage 4, GFR 15-29 ml/min Gastric reflux Gastritis, hiatal hernia per patient Gout, unspecified Herpes simplex virus (HSV) infection History of Clostridioides difficile colitis Hyperparathyroidism , secondary, non-renal IBS (irritable bowel syndrome) Mixed hyperlipidemia Slow transit constipation Thyroid nodule Surgical History History of section History of cholecystectomy History of parathyroidectomy History of tonsillectomy Family History (Updated 05/17/20 @ 13:07 by Peri Martinez MD) Grandfather CAD (coronary artery disease) Has some heart problems. Details are not available. Other Diabetes Hyperlipidemia Hypertension Social History Smoking and tobacco status: former smoker Second hand smoke exposure: No Smoking risk assessment/counseling performed?: No Alcohol intake: unknown Desire information about alcohol rehabilitation?: No Counseling given: No Desire information about substance/drug rehabilitation?: No Counseling given: No Caregiver/support person: No Lives independently: Yes Household members: significant other Marital status: Number of children: 3 service: No Current occupational status: disabled History of recent travel: No Current gender identity: Female Vitals/I&O/Wt Last Vital Signs Temp 97.5 F L 05/17/20 11:39 Pulse 96 05/17/20 11:39 Resp 18 05/17/20 11:39 BP 136/85 05/17/20 11:39 Pulse Ox 100 05/17/20 11:39 05/16/20 05/17/20 05/17/20 22:59 06:59 14:59 Intake Total 480 / 480 Balance 480 / 480 Weight last 48 hrs Weight 132 lb Physical Exam Narrative: EXAM NARRATIVE: GENERAL: The patient is alert and oriented times three. Not in any acute distress. HEENT: No significant pallor, icterus or lymphadenopathy. The pupils are reactant to light. Oral cavity: There are no mucous membrane lesions. Funduscopic examination: The fundus is not visualized NECK: Trachea appears to be central. No masses noted. No JVD or thyromegaly appreciated. No carotid bruit. RESPIRATORY: Chest is symmetrical. No intercostals muscle retraction or any accessory muscle activation. There is no chest wall tenderness. Breath sounds are heard bilaterally. No rales or rhonchi heard. No evidence of any consolidation. BREASTS: Deferred. HEART: The PMI is in the 5th left intercostals space just inside the midclavicular line. No palpable precordial events. S1 and S2 are normal. No S3 or S4 heard. No pericardial rub or any click heard. Short systolic murmur in the lower sternal border. No diastolic murmurs. No pericardial rub. ABDOMEN: No vessel pulsations or distention. No tenderness. No organomegaly appreciated. No abdominal bruit. Bowel sounds are normally heard. : Deferred. RECTAL: Deferred. LYMPHATIC: No lymphadenopathy noted in the neck or groin. EXTREMITIES: No edema or cyanosis. No clubbing. The pulses are symmetrical bilaterally. The radial, femoral, dorsalis pedis and the posterior tibial pulses are palpated and found to be in good volume and amplitude. MUSCULOSKELETAL: Gait is normal. There is no joint deformity or swelling noted. No joint tenderness or any effusion. The shoulder and hip joints appear to have normal range of motion. SKIN: There are no significant scars or skin rash noted. NEUROPSYCHIATRIC: The patient is alert and oriented x3. Appears to be in a good mood. The higher functions are grossly within normal limits. No tremors or rigidity noted. Data Imaging^: Echo: My impression: Normal left ventricular size and systolic function, EF 55%. No gross wall motion normalities. Thickened mitral valve. Mild mitral valve regurgitation. Trace to mild tricuspid valve regurgitation. Normal pulmonary artery pressures. There is no pericardial effusion. There are no intracardiac masses. No previous study is available for comparison. Myocardial perfusion imaging: My impression: 1. Myocardial perfusion imaging revealing a small to moderate area of inconsistent reversible defect in the inferolateral regions, suggestive of myocardial scarring with possible carolyn-infarction ischemia in the distribution of the right coronary artery/circumflex artery. The elevated transient ischemic dilatation ratio may suggest endocardial ischemia. The reliability of this finding is questionable. 2. Normal LV ejection fraction of 82%. 3. LV wall motion analysis revealing no gross wall motion normalities. 4. Normal LV volume. No similar previous studies are viral for comparison CXR: My impression: Chest x-ray showing normal cardiac silhouette with no lung infiltrates. No acute pathology noted. EKG^: EKG 1: My Interpretation: Normal sinus rhythm with normal ST-T's. Short CO interval. Otherwise unremarkable A&P Assessment and plan (1) Chest pain: Patient had a myocardial perfusion imaging today. She has a moderate area of fixed defects with very small area of inconsistent reversible defect in the inferolateral region, suggestive of ischemia in the distribution of the right coronary artery/circumflex artery. The reliability is questionable. In view of the history of gastritis and anemia, a GI etiology is a consideration as well. She may require cardiac catheterization eventually to have rule out underlying coronary disease. Her LV function is within normal limits with no significant wall motion normalities. Status: Acute Qualifiers: Chest pain type: unspecified Qualified Code(s): R07.9 - Chest pain, unspecified (2) Elevated troponin: In view of the tachyarrhythmia and the chronic kidney disease, most likely this is related to type II myocardial infarction. Her EKG is unremarkable. Status: Acute (3) CKD (chronic kidney disease) stage 4, GFR 15-29 ml/min: Patient is known to have stage IV kidney disease. She is being followed up with the nephrology service. Does not seem to have any acute worsening. Status: Acute (4) Anemia of chronic disease: Status: Acute (5) History of gastritis: Status: Acute Additional A&P Information The other problems are #1 iron deficiency anemia #2. Elevated white cell count, etiology? #3. A slightly elevated liver enzymes after reviewing the above and also based on the patient's clinical progress, further recommendations will be made. Thank you for the opportunity to evaluate this patient and make these recommendations. Coding Level of Care Code Acute Lead Manufacturing Technician for [facility] Diagnoses Chest pain R07.9 Chest pain type: unspecified Elevated troponin R77.8 CKD (chronic kidney disease) stage 4, GFR 15-29 ml/min N18.4 Anemia of chronic disease D63.8 History of gastritis Z87.19
[2020-05-17] MEDS: pantoprazole 40 mg SDV IVP (13:42)
--- NOTE | 2020-05-17 14:38 | PM.CONSULT ---
Providers/Reason For Consult Consulting Physican/Specialty*: Nephrology Reason for Consult*: CKD and heart disease Attending Physician: Reddy Lea MD History of Present Illness History of Present Illness Thank you for consultation. Today I reviewed this very pleasant 49-year-old female for evaluation of acute kidney injury. She was admitted on 05/16 with chest pain, left-sided, substernal, lasted for about 2 to 3 hours then she started experiencing palpitations, her chest pain was radiating towards left shoulder and arm, nitroglycerin and morphine helped her symptoms. She had chest pain during her stress test. There was evidence of inconsistent reversible defects in the inferolateral region per Dr Martinez. She has been found to have iron deficient microcytic anemia, with Hb 7.7g/dL. Has had iron infusions but this has caused pancreatitis. She has know stage 4 CKD, did have dialysis briefly for 1 week in the past. Her creatinine is currently 2.4mg/dL, eGFR 21.5ml/min. Outpatient Real Estate Account Executive is Dr Nation in [place]. AVF in right arm. Pending clearance for its use. Review of Systems Narrative: ROS - 12 point review of systems completed per HPI and subjective assessment, this includes Constitutional: No weakness, fatigue Respiratory: No SOB on exertion, comfortable at rest CardioVasc: No chest pain, palpitations Gastrointestinal: No nausea, no vomiting Neurological: No seizures, no AMS Derm: No new rashes, lesions or wounds Immunological: No seasonal and no food allergies Meds/Allergies Home Medications and Allergies Home Medications Medication Instructions Recorded Confirmed Last Taken Type acyclovir 800 mg tablet 800 mg PO DAILY PRN #30 tab 01/29/20 05/17/20 Unknown Rx ergocalciferol (vitamin D2) 1,250 50,000 unit PO Q7D 01/29/20 05/17/20 Unknown History mcg (50,000 unit) capsule febuxostat 40 mg tablet 40 mg PO DAILY 01/29/20 05/17/20 Unknown History hydrocodone 5 mg-acetaminophen 325 1 tab PO BID PRN 01/29/20 05/17/20 Unknown History mg tablet omeprazole 40 mg capsule,delayed 40 mg PO BID 01/29/20 05/17/20 Unknown History release potassium chloride 20 mEq 20 meq PO BID 01/29/20 05/17/20 Unknown History tablet,extended release(part/cryst) aspirin 81 mg PO DAILY 05/17/20 05/17/20 Unknown History clonazepam [Klonopin] 1 mg PO DAILY PRN 05/17/20 05/17/20 Unknown History dicyclomine 10 mg PO QID PRN 05/17/20 05/17/20 Unknown History gabapentin 200 mg PO DAILY 05/17/20 05/17/20 Unknown History ondansetron HCl [Zofran] 4 mg PO Q8H PRN 05/17/20 05/17/20 Unknown History sodium bicarbonate 650 mg PO BID 05/17/20 05/17/20 Unknown History Allergies Allergy/AdvReac Type Severity Reaction Status Date / Time clindamycin Allergy Unknown Unknown Verified 05/16/20 18:56 diphenhydramine Allergy Unknown Unknown Verified 05/16/20 18:56 [From Benadryl] ferumoxytol [From Feraheme] Allergy Unknown Unknown Verified 05/16/20 18:56 fluconazole [From Diflucan] Allergy Unknown Unknown Verified 05/16/20 18:56 flurbiprofen [From Ansaid] Allergy Unknown Unknown Verified 05/16/20 18:56 Current Medications Current Medications Generic Name Dose Route Start Last Admin Trade Name Freq PRN Reason Stop Dose Admin Aminophylline 25 mg 05/17/20 06:21 05/17/20 08:28 Aminophylline IVP 05/18/20 06:20 25 mg Q2M PRN Administration see dose instructions Aspirin 81 mg 05/17/20 09:00 05/17/20 09:25 Aspirin Ec PO 81 mg DAILY TYRON Administration Morphine Sulfate 2 mg 05/17/20 00:23 05/17/20 10:48 Morphine IVP 2 mg Q4H PRN Administration SEVERE PAIN Nitroglycerin 0.4 mg 05/17/20 06:21 05/17/20 09:25 Nitrostat SUBLINGUAL 05/18/20 06:20 1 tab Q5M PRN Administration CHEST PAIN Nitroglycerin 1 inch 05/17/20 10:30 05/17/20 10:47 Nitro-Bid TOPICAL 1 inch Q6H TYRON Administration Pantoprazole Sodium 40 mg 05/17/20 12:00 05/17/20 13:42 Protonix IVP 40 mg Q12H TYRON Administration Senna/Docusate Sodium 1 tab 05/17/20 09:00 05/17/20 09:34 Senna-S PO Not Given DAILY TYRON PFSH Acute PFSH: Medical History (Updated 05/17/20 @ 12:57 by Peri Martinez MD) Chronic hypokalemia Chronic iron deficiency anemia Chronic nonspecific colitis CKD (chronic kidney disease) stage 4, GFR 15-29 ml/min Gastric reflux Gastritis, hiatal hernia per patient Gout, unspecified Herpes simplex virus (HSV) infection History of Clostridioides difficile colitis Hyperparathyroidism , secondary, non-renal IBS (irritable bowel syndrome) Mixed hyperlipidemia Slow transit constipation Thyroid nodule Surgical History History of section History of cholecystectomy History of parathyroidectomy History of tonsillectomy Family History (Updated 05/17/20 @ 13:07 by Peri Martinez MD) Grandfather CAD (coronary artery disease) Has some heart problems. Details are not available. Other Diabetes Hyperlipidemia Hypertension Social History Smoking and tobacco status: former smoker Second hand smoke exposure: No Smoking risk assessment/counseling performed?: No Alcohol intake: unknown Desire information about alcohol rehabilitation?: No Counseling given: No Desire information about substance/drug rehabilitation?: No Counseling given: No Caregiver/support person: No Lives independently: Yes Household members: significant other Marital status: Number of children: 3 service: No Current occupational status: disabled History of recent travel: No Current gender identity: Female Vitals/I&O/Wt Last Vital Signs Temp 97.5 F L 05/17/20 11:39 Pulse 96 05/17/20 11:39 Resp 18 05/17/20 11:39 BP 136/85 05/17/20 11:39 Pulse Ox 100 05/17/20 11:39 05/16/20 05/17/20 05/17/20 22:59 06:59 14:59 Intake Total 700 / 700 Balance 700 / 700 Weight last 48 hrs Weight 59.874 kg Physical Exam Narrative: EXAM NARRATIVE: Constitutional: Awake, conversant, jovial HEENT: Wet mucosa, no jvp, non icteric Lungs: Bilaterally clear without discernible wheeze, rales in all lung zones CVS: S1 S2, no murmurs Abdo: Soft, BS ok Ext 4: Minimal edema, peripheral perfusion with no cyanosis Neurological: Grossly non-focal A&P Additional A&P Information 1. CKD - renal function is at baseline according to the data that I have available - no work up needed for this per se - avoid the usual nephrotoxic agents 2. Pending possible LCH - No role for post dye dialysis - Minimize dye, hydrate well caroyln-operatively with ivf - close monitoring of renal function following this for next 24-48hrs 3. Anemia - Pending EGD - mgmt per Dr Granda appreciated - will follow with the team over the next few days Erik Rubin MD Nephrology [phone] Consult Attestations Medical Necessity Statement: Eval for CKD Coding Level of Care Code Acute Industrial Manufacturing Technician for [employer] F[employer]
[2020-05-17] MEDS: sodium chloride 0.9% (100 ml) 100 ML 25 ML (19:54)
[2020-05-17] MEDS: atorvastatin 40 mg Tablet 80 MG PO (20:56)
[2020-05-17] MEDS: gabapentin 100 mg Capsule 200 MG PO (21:45)
--- NOTE | 2020-05-17 23:13 | USCV_ITS ---
Alexandria Delgado Age: 49 Gender: F : 1970 Exam Date: 05/17/2020 06:21 Ordering Phys: Chuckie Hair MD Technologist: Rey Juarez [place] [facility] [place]: BP: 125 / 69 HR: 75 Rhythm: Sinus Technical Quality: Good MEASUREMENTS (Male / Female) Normal Values 2D ECHO LV Diastolic Diameter PLAX 3.7 cm 4.2 - 5.9 / 3.9 - 5.3 cm LV Systolic Diameter PLAX 2.2 cm IVS Diastolic Thickness 0.8 cm 0.6 - 1.0 / 0.6 - 0.9 cm IVS Systolic Thickness 1.1 cm LVPW Diastolic Thickness 1.1 cm 0.6 - 1.0 / 0.6 - 0.9 cm LVPW Systolic Thickness 0.9 cm LVOT Diameter 1.9 cm LV Ejection Fraction 2D Teich 69.6 % LV Ejection Fraction MOD 2C 53.7 % LV Ejection Fraction 2C AL 55.4 % LA Diameter 3.2 cm LA Width 3.8 cm LA Height 4.0 cm RA Width 3.5 cm RA Height 4.0 cm M-MODE LV Diastolic Diameter MM 4.3 cm 4.2 - 5.9 / 3.9 - 5.3 cm LV Systolic Diameter MM 2.7 cm LV Ejection Fraction MM Teich 67.5 % IVS Diastolic Thickness MM 0.8 cm 0.6 - 1.0 / 0.6 - 0.9 cm IVS Systolic Thickness MM 1.2 cm LVPW Diastolic Thickness MM 1.0 cm 0.6 - 1.0 / 0.6 - 0.9 cm LVPW Systolic Thickness MM 1.3 cm RV Diastolic Diameter MM 1.5 cm Aortic Annulus Diameter 3.1 cm LA Ao Ratio MM 1.2 MV E Point Septal Separation 1.3 cm DOPPLER AV Peak Velocity 160.0 cm/s LVOT Peak Velocity 103.0 cm/s AV Area Cont Eq vti 1.8 cm squared AV Area Cont Eq pk 1.9 cm squared MV Area PHT 5.0 cm squared Mitral E to A Ratio 1.2 MV E' Velocity 57.0 cm/s Mitral E to MV E' Ratio 7.0 Mitral E to LV E' Lateral Ratio 6.8 Mitral E to LV E' Septal Ratio 7.3 TR Peak Velocity 220.0 cm/s TR Peak Gradient 19.4 mmHg TV Peak E Velocity 110.0 cm/s Right Atrial Pressure 3.0 mmHg Pulmonary Artery Systolic Pressu 22.4 mmHg PV Peak Velocity 111.0 cm/s FINDINGS Left Ventricle Normal left ventricular size and systolic function, EF 55%. No gross wall motion normalities. Right Ventricle The right ventricle is normal in size and function. Right Atrium The right atrium is normal in size. Left Atrium The left atrium is normal in size. Mitral Valve Thickened mitral valve. Mild mitral valve regurgitation. Aortic Valve Thickened aortic valve. Tricuspid Valve Trace to mild tricuspid valve regurgitation. Pulmonic Valve Structurally normal pulmonic valve without significant stenosis. There is no pulmonic regurgitation. Pericardium Normal pericardium without effusion. Aorta Normal ascending aorta dimension. CONCLUSIONS Normal left ventricular size and systolic function, EF 55%. No gross wall motion normalities. Thickened mitral valve. Mild mitral valve regurgitation. Trace to mild tricuspid valve regurgitation. Normal pulmonary artery pressures. There is no pericardial effusion. There are no intracardiac masses. No previous study is available for comparison. Dr Peri Martinez MD [facility] (Electronically Signed) Final Date: 17 May 2020 11:31 S
[2020-05-18] MEDS: pantoprazole 40 mg SDV IVP (00:32)
[2020-05-18 03:00] VITALS: BP 107/67; PULSE 85; RESP 16; TEMP 36.8; O2SAT 98
[2020-05-18] MEDS: nitroglycerin 1 gm/inch oint Pkt 1 INCH TOPICAL (04:12)
--- NOTE | 2020-05-18 04:14 | PC.NURSE ---
PT RESTING IN BED AT THIS TIME. PT WAS SLIGHTLY UPSET OVER GABAPENTIN. DR AT FIRST THOUGHT CREATININE WAS ON THE HIGH SIDE, BUT PT INSISTED THAT THEY HAVE GABAPENTIN. OK'D HOME DOSE. PT DENIES PAIN AT THIS TIME. WILL CONTINUE TO MONITOR.
[2020-05-18 07:00] VITALS: BP 111/71; PULSE 92; RESP 12; TEMP 36.8; O2SAT 99
[2020-05-18] MEDS: aspirin 81 mg EC Tablet PO (08:28)
--- NOTE | 2020-05-18 08:41 | PC.NURSE ---
Verbal order received to remove IV following Venofer administration due to slight swelling in Left arm.
[2020-05-18 09:09] LABS: Basophils # 0.1 10^3/uL (0.0-0.1); Basophils % 0.8 %; Eosinophils # 0.3 10^3/uL (0.0-0.8); Eosinophils % 2.9 %; Lymphocytes # 1.3 10^3/uL (0.8-4.8); Lymphocytes % 13.8 %; Mean Corpuscular HGB Conc 27.8 g/dL (30.0-36.0); Mean Corpuscular Hemoglobin 22.6 pg (28.0-34.0); Mean Corpuscular Volume 81.3 fL (81-99); Mean Platelet Volume 9.1 fL (7.4-10.4); Monocytes # 0.6 10^3/uL (0.2-0.9); Monocytes % 6.4 %; Neutrophils # 7.33 10^3/uL (1.8-7.7); Neutrophils % 75.8 %; Nucleated Red Blood Cells % 0 %; Platelet Count 420 10^3/cmm (130-400); Red Blood Count 4.43 10^6/uL (4.1-5.3); Red Cell Distribution Width 21.9 % (12.1-15.1); White Blood Count 9.7 10^3/uL (4.0-10.0)
--- NOTE | 2020-05-18 09:23 | PM.PN ---
Subjective Subjective: Interval history: The patient says that she feels less fatigued today. She still has some intermittent chest discomfort, but the burning discomfort is no longer present. She says she thinks the plan is to send her home tomorrow. She would like to eat some regular food. She says she has been told in the past by her iron assorter that she can eat a regular diet as opposed to having to stick to any special dietary restrictions. Vitals/I&O/Wt Last Vital Signs Temp 98.3 F 05/18/20 07:00 Pulse 92 05/18/20 07:00 Resp 12 05/18/20 07:00 BP 111/71 05/18/20 07:00 Pulse Ox 99 05/18/20 07:00 05/17/20 05/18/20 05/18/20 22:59 06:59 14:59 Intake Total 1090 / 1790 360 / 360 Output Total 640 / 640 Balance 450 / 1150 360 / 360 Weight last 48 hrs Weight 132 lb Physical Exam Narrative: EXAM NARRATIVE: Abdominal exam remains unchanged. Data : 05/18/20 08:30 05/17/20 00:49 A&P Assessment and plan (1) Anemia of chronic disease: We have briefly discussed an EGD. Having just had one of the 6 months ago, the patient is familiar with the procedure. She said she would be willing to proceed if necessary. We are holding on this at the present time as no aggressive cardiac procedures are planned. Status post transfusion, feeling somewhat better. I will be available if needed if an EGD is reconsidered. Please call if I can be of further help. Will allow a regular diet for now at the patient's request. Status: Acute (2) History of gastritis: Status: Acute Attestations Medical Necessity Statement*: See admitting service's notation. Coding Level of Care Code Acute Taxicab Dispatcher for [facility] Fwd Diagnoses Anemia of chronic disease D63.8 History of gastritis Z87.19
[2020-05-18 09:36] LABS: Alanine Aminotransferase 35 U/L (0-33); Albumin Level 3.8 g/dL (3.5-5.2); Alkaline Phosphatase 93 IU/L (35-105); Anion Gap 16.9 (5-19); Aspartate Amino Transferase 27 U/L (0-32); Blood Urea Nitrogen 28 mg/dL (6-20); Calcium 10.1 mg/dL (8.5-10.5); Carbon Dioxide 18 mmol/L (22-29); Chloride 109 mmol/L (98-107); Globulin 2.2 g/dL (1.3-4.6); Glomerular Filtration Rate 21.5 mL/min (90-130); Glucose 129 mg/dL (65-115); Osmolality Calculated 293 mOsm/kg (285-295); Potassium 5.9 mmol/L (3.5-5.1); Sodium 138 mmol/L (136-145); Total Bilirubin 0.3 mg/dL (0.15-1.2)
[2020-05-18] MEDS: iron sucrose 200 MG in sodium chloride 0.9% (100 ml) 100 ML 220 MG IV (09:55)
[2020-05-18 11:00] VITALS: BP 128/76; PULSE 98; RESP 19; TEMP 36.8; O2SAT 100
--- NOTE | 2020-05-18 11:10 | PC.NURSE ---
Patient IV painful during flush, IV infltrated. Dr. Lea notified nurse unable to administer protonix through line. Physician to change route of administration to PO. IV discontinued. Physician gave verbal order to leave IV out. Nurse to continue to monitor.
--- NOTE | 2020-05-18 11:15 | P.PN_ITS ---
Subjective Subjective: Interval history: Patient had 1 unit of blood transfusion yesterday. She is feeling much better. She still has some chest discomfort/tightness. No significant arrhythmias on the monitor. She has some sinus tachycardia intermittently. No fever or chills. No cough. No other specific complaints. Medications: Reviewed: Yes Medication Review Details: Current Medications Aspirin (Aspirin Ec) 81 mg PO DAILY [facility] Last Admin: 05/18/20 08:28 Dose: 81 mg Documented by: Atorvastatin Calcium (Lipitor) 80 mg PO BEDTIME [facility] Last Admin: 05/17/20 20:56 Dose: 80 mg Documented by: Metoprolol Tartrate (Lopressor) 12.5 mg PO BID [facility] Morphine Sulfate (Morphine) 2 mg IVP Q4H PRN PRN Reason: SEVERE PAIN Last Admin: 05/17/20 10:48 Dose: 2 mg Documented by: Ondansetron HCl (Zofran) 4 mg IVP Q2M PRN PRN Reason: NAUSEA Pantoprazole Sodium (Protonix) 40 mg IVP Q12H [facility] Last Admin: 05/18/20 00:32 Dose: 40 mg Documented by: Senna/Docusate Sodium (Senna-S) 1 tab PO DAILY [facility] Last Admin: 05/18/20 08:27 Dose: Not Given Documented by: Vitals/I&O/Wt Last Vital Signs Temp 98.3 F 05/18/20 11:00 Pulse 98 05/18/20 11:00 Resp 19 H 05/18/20 11:00 BP 128/76 05/18/20 11:00 Pulse Ox 100 05/18/20 11:00 05/17/20 05/18/20 05/18/20 22:59 06:59 14:59 Intake Total 1090 / 1790 360 / 360 Output Total 640 / 640 Balance 450 / 1150 360 / 360 Weight last 48 hrs Weight 132 lb Physical Exam Narrative: EXAM NARRATIVE: GENERAL: The patient is alert and oriented times three. Not in any acute distress. HEENT: No significant pallor, icterus or lymphadenopathy. NECK: Trachea appears to be central. No masses noted. No JVD or thyromegaly appreciated. No carotid bruit. RESPIRATORY: Chest is symmetrical. No intercostals muscle retraction or any accessory muscle activation. There is no chest wall tenderness. Breath sounds are heard bilaterally. No rales or rhonchi heard. No evidence of any consolidation. BREASTS: Deferred. HEART: The PMI is in the 5th left intercostals space just inside the midclavicular line. No palpable precordial events. S1 and S2 are normal. No S3 or S4 heard. No pericardial rub or any click heard. Short systolic murmur in the lower sternal border. No diastolic murmurs. No pericardial rub. ABDOMEN: No vessel pulsations or distention. No tenderness. No organomegaly appreciated. No abdominal bruit. Bowel sounds are normally heard. : Deferred. RECTAL: Deferred. LYMPHATIC: No lymphadenopathy noted in the neck or groin. EXTREMITIES: No edema or cyanosis. No clubbing. The pulses are symmetrical bilaterally. The radial, femoral, dorsalis pedis and the posterior tibial pulses are palpated and found to be in good volume and amplitude. MUSCULOSKELETAL: Gait is normal. There is no joint deformity or swelling noted. No joint tenderness or any effusion. The shoulder and hip joints appear to have normal range of motion. SKIN: There are no significant scars or skin rash noted. NEUROPSYCHIATRIC: The patient is alert and oriented x3. Appears to be in a good mood. The higher functions are grossly within normal limits. No tremors or rigidity noted. Data : 05/18/20 08:30 05/18/20 08:30 A&P Assessment and plan (1) Chest pain: Patient had a myocardial perfusion imaging today. She has a moderate area of fixed defects with very small area of inconsistent reversible defect in the inferolateral region, suggestive of ischemia in the distribution of the right coronary artery/circumflex artery. The reliability is questionable. In view of the history of gastritis and anemia, a GI etiology is a consideration as well. She may require cardiac catheterization eventually to have rule out underlying coronary disease. Her LV function is within normal limits with no significant wall motion normalities. Since she seems to have significant improvement of the symptoms, it would be appropriate to hold off on any invasive cardiac work-up at this time. Dr. Boyd is planning to give her a trial of iron infusion. Her hemoglobin has significant improved after the transfusion. Most likely she may not have any active bleed. Status: Acute Qualifiers: Chest pain type: unspecified Qualified Code(s): R07.9 - Chest pain, unspecified (2) Elevated troponin: In view of the tachyarrhythmia and the chronic kidney disease, most likely this is related to type II myocardial infarction. Her EKG is unremarkable. May continue on the current medications. Status: Acute (3) CKD (chronic kidney disease) stage 4, GFR 15-29 ml/min: Patient is known to have stage IV kidney disease. Kidney function seems stable. Status: Acute (4) Anemia of chronic disease: Status post blood transfusion. Currently the hemoglobin seems to be stable. Status: Acute (5) History of gastritis: Management as per the primary. Dr. Lea is planning to change the proton pump inhibitor. Status: Acute Additional A&P Information The other problems are #1 iron deficiency anemia #2. Elevated white cell count, etiology? Currently the count is normal #3. A slightly elevated liver enzymes Repeat gram profile and CBC tomorrow. Attestations Medical Necessity Statement*: Deferred to the primary Coding Level of Care Code Acute Public Health Microbiologist for [facility] Fwd Diagnoses Chest pain R07.9 Chest pain type: unspecified Elevated troponin R77.8 CKD (chronic kidney disease) stage 4, GFR 15-29 ml/min N18.4 Anemia of chronic disease D63.8 History of gastritis Z87.19
--- NOTE | 2020-05-18 11:25 | PM.PN ---
Subjective Subjective: Interval history: Patient reports feeling much better. Reports that she only has very minimal discomfort in her chest and epigastric area at the same time. Her potassium is up to 5.9 and this is likely secondary to acute GI bleed. She had no bowel movement yet. Her creatinine remained stable. Patient reports that her left upper extremity is more swollen. It appears that her IV line is infiltrated and will be removed. She received 1 dose of IV Venofer today. Her hemoglobin nicely recovered after 1 unit of transfusion. Medications: Reviewed: Yes Medication Review Details: Current Medications Aspirin (Aspirin Ec) 81 mg PO DAILY [facility] Last Admin: 05/18/20 08:28 Dose: 81 mg Documented by: Atorvastatin Calcium (Lipitor) 80 mg PO BEDTIME [facility] Last Admin: 05/17/20 20:56 Dose: 80 mg Documented by: Metoprolol Tartrate (Lopressor) 12.5 mg PO BID [facility] Morphine Sulfate (Morphine) 2 mg IVP Q4H PRN PRN Reason: SEVERE PAIN Last Admin: 05/17/20 10:48 Dose: 2 mg Documented by: Ondansetron HCl (Zofran) 4 mg IVP Q2M PRN PRN Reason: NAUSEA Pantoprazole Sodium (Protonix) 40 mg IVP Q12H [facility] Last Admin: 05/18/20 00:32 Dose: 40 mg Documented by: Senna/Docusate Sodium (Senna-S) 1 tab PO DAILY [facility] Last Admin: 05/18/20 08:27 Dose: Not Given Documented by: Vitals/I&O/Wt Last Vital Signs Temp 98.3 F 05/18/20 11:00 Pulse 98 05/18/20 11:00 Resp 19 H 05/18/20 11:00 BP 128/76 05/18/20 11:00 Pulse Ox 100 05/18/20 11:00 05/17/20 05/18/20 05/18/20 22:59 06:59 14:59 Intake Total 1090 / 1790 360 / 360 Output Total 640 / 640 Balance 450 / 1150 360 / 360 Weight last 48 hrs Weight 59.874 kg Physical Exam Const: COMMON NORMALS: no acute distress and patient oriented x3 Resp: COMMON NORMALS: normal respiratory effort and clear to auscultation bilaterally AUSCULTATION: clear to auscultation bilaterally Cardio: COMMON NORMALS: regular rate, regular rhythm and S2 normal heart sound present RATE: regular rate RHYTHM: regular rhythm HEART SOUNDS: S2 normal heart sound present OTHER: No lower extremity edema GI: COMMON NORMALS: Normal to inspection, nondistended, normoactive bowel sounds present, Soft to palpation and non-tender PALPATION: Yes Soft to palpation Neuro: COMMON NORMALS: patient oriented x3 and no focal motor deficits Data : 05/18/20 08:30 05/18/20 08:30 A&P Assessment and plan (1) Unstable angina: Patient meets criteria for non-ST elevation DE, type I versus type II. Status: Acute (2) Anemia of chronic disease: Patient appears to have acute component of anemia as her hemoglobin is down to 7.7 compared to more than eleven 1 year ago. GI bleed cannot be completely ruled out. Status: Acute Additional A&P Information DVT prophylaxis: Heparin Cardiac diet, n.p.o. after midnight Full code History of gout: Hold febuxostat and steroids PLAN: Continue high-dose PPI. We will start patient on Kayexalate every 12 hours and repeat labs in a.m. Continue current monitoring and treatment but switch Protonix to oral. Remove IV line and if swelling is not improving consider left upper extremity venous ultrasound. Attestations Medical Necessity Statement*: Patient with non-ST elevation DE type II as well as concern of GI bleed requires close inpatient monitoring and treatment till deemed safe for discharge. Time Spent in Patient Care: 16 - 35 minutes Coding Level of Care Code Acute Script Coordinator for [facility] Kwong Diagnoses Unstable angina I20.0 Anemia of chronic disease D63.8
[2020-05-18] MEDS: metoprolol tartrate 25 mg Tablet 12.5 MG PO ×2 (11:56→17:38)
[2020-05-18] MEDS: sodium polystyrene sulfonate 15 gm/60 mL Btl PO ×2 (11:58→22:50)
[2020-05-18 15:00] VITALS: BP 120/81; PULSE 84; RESP 20; TEMP 36.9; O2SAT 98
--- NOTE | 2020-05-18 16:48 | P.PN_ITS ---
Subjective Subjective: Interval history: I am seeing her in follow up for her renal failure. No chest pain or shortness of breath Medications: Reviewed: Yes Vitals/I&O/Wt Last Vital Signs Temp 98.4 F 05/18/20 15:00 Pulse 84 05/18/20 15:00 Resp 20 H 05/18/20 15:00 BP 120/81 05/18/20 15:00 Pulse Ox 98 05/18/20 15:00 05/18/20 05/18/20 05/18/20 06:59 14:59 22:59 Intake Total 600 / 600 Balance 600 / 600 Weight last 48 hrs Weight 59.874 kg Physical Exam Const: COMMON NORMALS: no acute distress and patient oriented x3 GENERAL APPEARANCE: cooperative and comfortable Resp: COMMON NORMALS: clear to auscultation bilaterally AUSCULTATION: clear to auscultation bilaterally Cardio: COMMON NORMALS: S1 normal heart sound present and S2 normal heart sound present HEART SOUNDS: S1 normal heart sound present and S2 normal heart sound present GI: AUSCULTATION: Yes normoactive bowel sounds Extremity: GENERAL: No edema Neuro: COMMON NORMALS: patient oriented x3 Skin: COMMON NORMALS: no rashes or lesions noted GENERAL SKIN EXAM: no rashes or lesions noted Data : 05/18/20 08:30 05/18/20 08:30 Micro: Microbiology 05/18/20 10:45 Occult Blood (FIT) - Final Stool Routine Collection A&P Assessment and plan (1) CKD (chronic kidney disease) stage 4, GFR 15-29 ml/min: Kidney function staying stable, creatinine is at baseline Status: Acute (2) HTN (hypertension): BP under control Status: Acute (3) Acidosis: If persistent, will add sodium bicarbonate supplements Status: Acute (4) Hyperkalemia: Agree with kayexalate Status: Acute (5) Anemia: Follow hb Status: Acute Attestations Medical Necessity Statement*: Renal failure Coding Level of Care Code Acute Geotechnical Department Manager for [facility] Fwd Diagnoses CKD (chronic kidney disease) stage 4, GFR 15-29 ml/min N18.4 HTN (hypertension) I10 Acidosis E87.2 Hyperkalemia E87.5 Anemia D64.9
--- NOTE | 2020-05-18 17:30 | PC.NURSE ---
Telephone order received from Dr. Lea to restart patient's home dose of gabapentin. RBTO.
[2020-05-18] MEDS: pantoprazole DR 40 mg Tablet PO (17:38)
[2020-05-18 19:00] VITALS: BP 102/59; PULSE 79; RESP 14; TEMP 36.8; O2SAT 98
[2020-05-18] MEDS: atorvastatin 40 mg Tablet 80 MG PO (20:44)
[2020-05-18] MEDS: gabapentin 100 mg Capsule 200 MG PO (20:45)
[2020-05-18 22:52] VITALS: BP 91/52; PULSE 98; RESP 14; TEMP 36.7
[2020-05-19] VITALS (11 sets, daily range): BP systolic 89–137; BP diastolic 48–86; PULSE 70–122; RESP 12–28; TEMP 36.1–36.9; O2SAT 96–100
[2020-05-19 05:53] LABS: Basophils # 0.1 10^3/uL (0.0-0.1); Basophils % 0.9 %; Eosinophils # 0.2 10^3/uL (0.0-0.8); Eosinophils % 2.6 %; Hematocrit 31.6 % (37.0-47.0); Hemoglobin 8.7 g/dL (11.5-15.3); Lymphocytes # 1.3 10^3/uL (0.8-4.8); Lymphocytes % 14.9 %; Mean Corpuscular HGB Conc 27.5 g/dL (30.0-36.0); Mean Corpuscular Hemoglobin 21.9 pg (28.0-34.0); Mean Corpuscular Volume 79.6 fL (81-99); Mean Platelet Volume 9.5 fL (7.4-10.4); Monocytes # 0.8 10^3/uL (0.2-0.9); Monocytes % 8.6 %; Neutrophils # 6.48 10^3/uL (1.8-7.7); Neutrophils % 72.6 %; Nucleated Red Blood Cells % 0 %; Platelet Count 338 10^3/cmm (130-400); Red Blood Count 3.97 10^6/uL (4.1-5.3); Red Cell Distribution Width 21.9 % (12.1-15.1); White Blood Count 8.9 10^3/uL (4.0-10.0)
[2020-05-19 06:34] LABS: Alanine Aminotransferase 24 U/L (0-33); Albumin Level 2.9 g/dL (3.5-5.2); Alkaline Phosphatase 78 IU/L (35-105); Anion Gap 14.1 (5-19); Aspartate Amino Transferase 21 U/L (0-32); Carbon Dioxide 19 mmol/L (22-29); Chloride 113 mmol/L (98-107); Globulin 2.3 g/dL (1.3-4.6); Glomerular Filtration Rate 20.6 mL/min (90-130); Glucose 88 mg/dL (65-115); Potassium 4.1 mmol/L (3.5-5.1); Sodium 142 mmol/L (136-145); Total Bilirubin 0.2 mg/dL (0.15-1.2); Total Protein 5.2 g/dL (6.6-8.7)
[2020-05-19 07:11] LABS: Blood Urea Nitrogen 24 mg/dL (6-20); Calcium 9.4 mg/dL (8.5-10.5); Magnesium 1.6 mg/dL (1.7-2.3); Osmolality Calculated 297 mOsm/kg (285-295)
--- NOTE | 2020-05-19 07:55 | PM.PN ---
Subjective Subjective: Interval history: The patient says she had a bad night. She continued to have some chest pain during the night. She still denies any abdominal symptoms. She says nursing checked her stool and it was heme positive. Vitals/I&O/Wt Last Vital Signs Temp 98.0 F 05/19/20 07:00 Pulse 75 05/19/20 07:00 Resp 15 05/19/20 07:00 BP 93/58 05/19/20 07:00 Pulse Ox 99 05/19/20 07:00 05/18/20 05/19/20 05/19/20 22:59 06:59 14:59 Intake Total 420 / 1130 Balance 420 / 1130 Physical Exam Narrative: EXAM NARRATIVE: Abdomen remains soft. Data : 05/19/20 05:12 05/19/20 05:12 Micro: Microbiology 05/18/20 10:45 Occult Blood (FIT) - Final Stool Routine Collection A&P Assessment and plan (1) Anemia of chronic disease: Status: Acute (2) History of gastritis: Status: Acute (3) Heme positive stool: The patient's hemoglobin has drifted from 10-8.7. With her stool being heme positive, I rediscussed an EGD with her. She would like to proceed. After discussing this with Dr. Lae, he also feels that would be appropriate to proceed since there is no obvious evidence of cardiac issues. I will make arrangements for an EGD this morning. The patient has been n.p.o. this morning. Status: Acute Attestations Medical Necessity Statement*: See admitting service's notation. Coding Level of Care Code Acute White Metal Corrosion Proofer for [facility] Fwd Diagnoses Anemia of chronic disease D63.8 History of gastritis Z87.19 Heme positive stool R19.5
--- NOTE | 2020-05-19 08:02 | ANES.PREANE2 ---
Pre-Anesthetic Assessment Pre-Anesthetic Assessment: Height/Weight: Height 1.65 m Weight 59.874 kg Temp Pulse Resp BP Pulse Ox 98.0 F 75 15 93/58 99 05/19/20 07:00 05/19/20 07:00 05/19/20 07:00 05/19/20 07:00 05/19/20 07:00 Preop Diagnosis: Heme positive stool Familial anesthetic complications: None Was Beta Sacha taken within 24 hours: Yes Last intake: SIps of black coffee with meds Social: Social History: No alcohol and No tobacco Exam: Pre-Anes Outpt Exam: alert, oriented x 3, clear to auscultation bilaterally and regular rate & rhythm Airway: Cervical ROM: WNL MP: 3 Dentition: False CV/HEM: CV/HEM: Anemia, Angina (Unstable) (cardiac etiology ruled out during admission) and HTN Comments: echo wnl and stress tests unremarkable : : Chronic renal Insufficiency Comments: DOMENIC Neuropsych: Comments: headache Anesthetic Plan: ASA status: 3 Anesthesia: MAC Risk of > 500 ml blood loss (7ml/kg in children): No Meds/Allergies Current Medications: Current Medications Generic Name Dose Route Start Last Admin Trade Name Freq PRN Reason Stop Dose Admin Aspirin 81 mg 05/17/20 09:00 05/18/20 08:28 Aspirin Ec PO 81 mg DAILY TYRON Administration Atorvastatin Calci um 80 mg 05/17/20 21:00 05/18/20 20:44 Lipitor PO 80 mg BEDTIME TYRON Administration Gabapentin 200 mg 05/18/20 21:00 05/18/20 20:45 Neurontin PO 200 mg BEDTIME TYRON Administration Metoprolol Tartrat e 12.5 mg 05/18/20 11:20 05/18/20 17:38 Lopressor PO 12.5 mg BID TYRON Administration Morphine Sulfate 2 mg 05/17/20 00:23 05/17/20 10:48 Morphine IVP 2 mg Q4H PRN Administration SEVERE PAIN Pantoprazole Sodiu m 40 mg 05/18/20 18:00 05/18/20 17:38 Protonix PO 40 mg BID TYRON Administration Senna/Docusate Sod ium 1 tab 05/17/20 09:00 05/18/20 08:27 Senna-S PO Not Given DAILY TYRON Sodium Polystyrene Sulfonate 15 gm 05/18/20 11:30 05/18/20 22:50 Kayexalate PO 15 gm Q12H TYRON Administration Additional Medication Information: Current Medications Aspirin (Aspirin Ec) 81 mg PO DAILY [facility] Last Admin: 05/18/20 08:28 Dose: 81 mg Documented by: Atorvastatin Calcium (Lipitor) 80 mg PO BEDTIME TYRON Last Admin: 05/17/20 20:56 Dose: 80 mg Documented by: Metoprolol Tartrate (Lopressor) 12.5 mg PO BID [facility] Morphine Sulfate (Morphine) 2 mg IVP Q4H PRN PRN Reason: SEVERE PAIN Last Admin: 05/17/20 10:48 Dose: 2 mg Documented by: Ondansetron HCl (Zofran) 4 mg IVP Q2M PRN PRN Reason: NAUSEA Pantoprazole Sodium (Protonix) 40 mg IVP Q12H [facility] Last Admin: 05/18/20 00:32 Dose: 40 mg Documented by: Senna/Docusate Sodium (Senna-S) 1 tab PO DAILY [facility] Last Admin: 05/18/20 08:27 Dose: Not Given Documented by: PFSH Anesthesia PFSH: Medical History (Updated 05/19/20 @ 07:56 by Mac Granda MD) Chronic hypokalemia Chronic iron deficiency anemia Chronic nonspecific colitis CKD (chronic kidney disease) stage 4, GFR 15-29 ml/min Gastric reflux Gastritis, hiatal hernia per patient Gout, unspecified Herpes simplex virus (HSV) infection History of Clostridioides difficile colitis Hyperparathyroidism , secondary, non-renal IBS (irritable bowel syndrome) Mixed hyperlipidemia Slow transit constipation Thyroid nodule Surgical History (Updated 05/19/20 @ 08:06 by Anitha Zhu RN) History of section History of cholecystectomy History of parathyroidectomy History of tonsillectomy Family History (Updated 05/17/20 @ 13:07 by Peri Martinez MD) Grandfather CAD (coronary artery disease) Has some heart problems. Details are not available. Other Diabetes Hyperlipidemia Hypertension Social History Smoking and tobacco status: former smoker Second hand smoke exposure: No Smoking risk assessment/counseling performed?: No Alcohol intake: unknown Desire information about alcohol rehabilitation?: No Counseling given: No Desire information about substance/drug rehabilitation?: No Counseling given: No Caregiver/support person: No Lives independently: Yes Household members: significant other Marital status: Number of children: 3 service: No Current occupational status: disabled History of recent travel: No Current gender identity: Female Data Anesthesia CBC & Chem 7: 05/19/20 05:12 05/19/20 05:12 Other Labs: Laboratory Results - last 48 hr 05/16/20 05/16/20 05/17/20 19:22 19:22 12:39 WBC RBC Hgb Hct MCV MCH MCHC RDW Plt Count MPV Neut % (Auto) Lymph % (Auto) Camp % (Auto) Eos % (Auto) Baso % (Auto) Neut # (Auto) Lymph # (Auto) Camp # (Auto) Eos # (Auto) Baso # (Auto) Nucleated RBC % (auto) Nucleated RBCs # Sodium Potassium Chloride Carbon Dioxide Anion Gap BUN Creatinine GFR Calculation Glucose Calculated Osmolality Calcium Magnesium Iron 18 L TIBC 322 % Saturation 5.5 L Unsat Iron Binding 304 Ferritin 6 L Total Bilirubin AST ALT Alkaline Phosphatase Total Protein Albumin Globulin Vitamin B12 520 Folate 5.8 Blood Type O Positive Rho(D) Type Positive Antibody Screen Negative Crossmatch See Detail 05/18/20 05/18/20 05/19/20 08:30 08:30 05:12 WBC 9.7 8.9 RBC 4.43 3.97 L Hgb 10.0 L 8.7 L Hct 36.0 L 31.6 L MCV 81.3 79.6 L MCH 22.6 L 21.9 L MCHC 27.8 L 27.5 L RDW 21.9 H 21.9 H Plt Count 420 H 338 MPV 9.1 9.5 Neut % (Auto) 75.8 72.6 Lymph % (Auto) 13.8 14.9 Camp % (Auto) 6.4 8.6 Eos % (Auto) 2.9 2.6 Baso % (Auto) 0.8 0.9 Neut # (Auto) 7.33 6.48 Lymph # (Auto) 1.3 1.3 Camp # (Auto) 0.6 0.8 Eos # (Auto) 0.3 0.2 Baso # (Auto) 0.1 0.1 Nucleated RBC % (auto) 0 0 Nucleated RBCs # 0.0 0.0 Sodium 138 Potassium 5.9 H Chloride 109 H Carbon Dioxide 18 L Anion Gap 16.9 BUN 28 H Creatinine 2.4 H GFR Calculation 21.5 L Glucose 129 H Calculated Osmolality 293 Calcium 10.1 Magnesium Iron TIBC % Saturation Unsat Iron Binding Ferritin Total Bilirubin 0.3 AST 27 ALT 35 H Alkaline Phosphatase 93 Total Protein 6.0 L Albumin 3.8 Globulin 2.2 Vitamin B12 Folate Blood Type Rho(D) Type Antibody Screen Crossmatch 05/19/20 05:12 WBC RBC Hgb Hct MCV MCH MCHC RDW Plt Count MPV Neut % (Auto) Lymph % (Auto) Camp % (Auto) Eos % (Auto) Baso % (Auto) Neut # (Auto) Lymph # (Auto) Camp # (Auto) Eos # (Auto) Baso # (Auto) Nucleated RBC % (auto) Nucleated RBCs # Sodium 142 Potassium 4.1 Chloride 113 H Carbon Dioxide 19 L Anion Gap 14.1 BUN 24 H Creatinine 2.5 H GFR Calculation 20.6 L Glucose 88 Calculated Osmolality 297 H Calcium 9.4 Magnesium 1.6 L Iron TIBC % Saturation Unsat Iron Binding Ferritin Total Bilirubin 0.2 AST 21 ALT 24 Alkaline Phosphatase 78 Total Protein 5.2 L Albumin 2.9 L Globulin 2.3 Vitamin B12 Folate Blood Type Rho(D) Type Antibody Screen Crossmatch Micro: Microbiology 05/18/20 10:45 Occult Blood (FIT) - Final Stool Routine Collection Cardiac Studies: No Data to Display
[2020-05-19] MEDS: sodium chloride 0.9% 1,000 ML 30 ML IV (09:10)
--- NOTE | 2020-05-19 09:39 | PM.PN ---
Subjective Subjective: Interval history: The patient was feeling okay yesterday. Since last night, she again started having generalized weakness and also chest pain. Her pain is in the left upper side of the chest. It is described as a constant aching sensation. No associated shortness of breath. She has some palpitations with no dizziness or syncopal episode. She feels like the heart is beating too fast at times. Medications: Reviewed: Yes Medication Review Details: Current Medications Aspirin (Aspirin Ec) 81 mg PO DAILY [facility] Last Admin: 05/18/20 08:28 Dose: 81 mg Documented by: Atorvastatin Calcium (Lipitor) 80 mg PO BEDTIME [facility] Last Admin: 05/18/20 20:44 Dose: 80 mg Documented by: Gabapentin (Neurontin) 200 mg PO BEDTIME [facility] Last Admin: 05/18/20 20:45 Dose: 200 mg Documented by: Sodium Chloride (Sodium Chloride 0.9%) 1,000 mls @ 30 mls/hr IV .Q24H [facility] Last Infusion: 05/19/20 09:34 Dose: Infused Documented by: Magnesium Oxide (Magox) 400 mg PO BID [facility] Metoprolol Tartrate (Lopressor) 12.5 mg PO BID [facility] Last Admin: 05/18/20 17:38 Dose: 12.5 mg Documented by: Morphine Sulfate (Morphine) 2 mg IVP Q4H PRN PRN Reason: SEVERE PAIN Last Admin: 05/17/20 10:48 Dose: 2 mg Documented by: Ondansetron HCl (Zofran) 4 mg IVP Q2M PRN PRN Reason: NAUSEA Pantoprazole Sodium (Protonix) 40 mg PO BID [facility] Last Admin: 05/18/20 17:38 Dose: 40 mg Documented by: Senna/Docusate Sodium (Senna-S) 1 tab PO DAILY [facility] Last Admin: 05/18/20 08:27 Dose: Not Given Documented by: Sodium Polystyrene Sulfonate (Kayexalate) 15 gm PO Q12H [facility] Last Admin: 05/18/20 22:50 Dose: 15 gm Documented by: Vitals/I&O/Wt Last Vital Signs Temp 98.3 F 05/19/20 09:22 Pulse 70 05/19/20 09:31 Resp 18 05/19/20 09:31 BP 103/64 05/19/20 09:31 Pulse Ox 100 05/19/20 09:31 05/18/20 05/19/20 05/19/20 22:59 06:59 14:59 Intake Total 420 / 1130 100 / 100 Balance 420 / 1130 100 / 100 Physical Exam Narrative: EXAM NARRATIVE: GENERAL: The patient is alert and oriented times three. Not in any acute distress. HEENT: No significant pallor, icterus or lymphadenopathy. NECK: Trachea appears to be central. No masses noted. No JVD or thyromegaly appreciated. No carotid bruit. RESPIRATORY: Chest is symmetrical. No intercostals muscle retraction or any accessory muscle activation. There is no chest wall tenderness. Breath sounds are heard bilaterally. No rales or rhonchi heard. No evidence of any consolidation. BREASTS: Deferred. HEART: The PMI is in the 5th left intercostals space just inside the midclavicular line. No palpable precordial events. S1 and S2 are normal. No S3 or S4 heard. No pericardial rub or any click heard. Short systolic murmur in the lower sternal border. No diastolic murmurs. No pericardial rub. ABDOMEN: No vessel pulsations or distention. No tenderness. No organomegaly appreciated. No abdominal bruit. Bowel sounds are normally heard. : Deferred. RECTAL: Deferred. LYMPHATIC: No lymphadenopathy noted in the neck or groin. EXTREMITIES: No edema or cyanosis. No clubbing. The pulses are symmetrical bilaterally. The radial, femoral, dorsalis pedis and the posterior tibial pulses are palpated and found to be in good volume and amplitude. MUSCULOSKELETAL: No acute joint deformities or swelling SKIN: There are no significant scars or skin rash noted. NEUROPSYCHIATRIC: The patient is alert and oriented x3. Appears to be in a good mood. The higher functions are grossly within normal limits. No tremors or rigidity noted. Data : 05/19/20 05:12 05/19/20 05:12 Other Labs: Laboratory Last Values WBC 8.9 10^3/uL (4.0-10.0) 05/19/20 05:12 RBC 3.97 10^6/uL (4.1-5.3) L 05/19/20 05:12 Hgb 8.7 g/dL (11.5-15.3) L 05/19/20 05:12 Hct 31.6 % (37.0-47.0) L 05/19/20 05:12 MCV 79.6 fL (81-99) L 05/19/20 05:12 MCH 21.9 pg (28.0-34.0) L 05/19/20 05:12 MCHC 27.5 g/dL (30.0-36.0) L 05/19/20 05:12 RDW 21.9 % (12.1-15.1) H 05/19/20 05:12 Plt Count 338 10^3/cmm (130-400) 05/19/20 05:12 MPV 9.5 fL (7.4-10.4) 05/19/20 05:12 Neut % (Auto) 72.6 % 05/19/20 05:12 Lymph % (Auto) 14.9 % 05/19/20 05:12 [place] % (Auto) 8.6 % 05/19/20 05:12 Eos % (Auto) 2.6 % 05/19/20 05:12 Baso % (Auto) 0.9 % 05/19/20 05:12 Neut # (Auto) 6.48 10^3/uL (1.8-7.7) 05/19/20 05:12 Lymph # (Auto) 1.3 10^3/uL (0.8-4.8) 05/19/20 05:12 [place] # (Auto) 0.8 10^3/uL (0.2-0.9) 05/19/20 05:12 Eos # (Auto) 0.2 10^3/uL (0.0-0.8) 05/19/20 05:12 Baso # (Auto) 0.1 10^3/uL (0.0-0.1) 05/19/20 05:12 Nucleated RBC % (auto) 0 % 05/19/20 05:12 Nucleated RBCs # 0.0 /100WBC 05/19/20 05:12 D-Dimer 0.79 ug/mIFEU (0-0.59) H 05/16/20 19:22 Sodium 142 mmol/L (136-145) 05/19/20 05:12 Potassium 4.1 mmol/L (3.5-5.1) 05/19/20 05:12 Chloride 113 mmol/L (98-107) H 05/19/20 05:12 Carbon Dioxide 19 mmol/L (22-29) L 05/19/20 05:12 Anion Gap 14.1 (5-19) 05/19/20 05:12 BUN 24 mg/dL (6-20) H 05/19/20 05:12 Creatinine 2.5 mg/dL (0.5-0.9) H 05/19/20 05:12 GFR Calculation 20.6 mL/min (90-130) L 05/19/20 05:12 Glucose 88 mg/dL (65-115) 05/19/20 05:12 Calculated Osmolality 297 mOsm/kg (285-295) H 05/19/20 05:12 Calcium 9.4 mg/dL (8.5-10.5) 05/19/20 05:12 Magnesium 1.6 mg/dL (1.7-2.3) L 05/19/20 05:12 Iron 18 ug/dL (37-145) L 05/16/20 19:22 TIBC 322 mcg/dl 05/16/20 19:22 % Saturation 5.5 % (20-50) L 05/16/20 19:22 Unsat Iron Binding 304 ug/dL (112-347) 05/16/20 19:22 Ferritin 6 ng/mL (15-150) L 05/16/20 19:22 Total Bilirubin 0.2 mg/dL (0.15-1.2) 05/19/20 05:12 AST 21 U/L (0-32) 05/19/20 05:12 ALT 24 U/L (0-33) 05/19/20 05:12 Alkaline Phosphatase 78 IU/L (35-105) 05/19/20 05:12 Troponin T Baseline 33 ng/L (0-10) H 05/16/20 19:22 Troponin T 120 Minute 44.46 ng/L (0-10) H 05/16/20 21:15 Delta Troponin T 11.46 ABS# (0-10) H* 05/16/20 21:15 Troponin T Hi Sens 6Hr 41.63 ng/L (0-10) H 05/17/20 00:49 Troponin T Hi Sens 6Hr Delta 8.63 ng/L (0-12) 05/17/20 00:49 Total Protein 5.2 g/dL (6.6-8.7) L 05/19/20 05:12 Albumin 2.9 g/dL (3.5-5.2) L 05/19/20 05:12 Globulin 2.3 g/dL (1.3-4.6) 05/19/20 05:12 Vitamin B12 520 pg/mL (232-1245) 05/16/20 19:22 Folate 5.8 ng/mL (4.8-37.3) 05/16/20 19:22 Blood Type O Positive 05/17/20 12:39 Rho(D) Type Positive 05/17/20 12:39 Antibody Screen Negative 05/17/20 12:39 Crossmatch See Detail 05/17/20 12:39 Micro: Microbiology 05/18/20 10:45 Occult Blood (FIT) - Final Stool Routine Collection A&P Assessment and plan (1) Chest pain: If the patient continues to have the chest pains, we may need to consider a cardiac catheterization, to further evaluate the coronary status and decide on further management. Patient had an upper endoscopy and was found to have gastritis. She is on a proton pump inhibitor. Discussed with Dr. Lea. It was thought to be appropriate to consider cardiac catheterization, if she continues to have the chest pains. Status: Acute Qualifiers: Chest pain type: unspecified Qualified Code(s): R07.9 - Chest pain, unspecified (2) Elevated troponin: In view of the tachyarrhythmia and the chronic kidney disease, most likely this is related to type II myocardial infarction. Her EKG is unremarkable. May continue on the current medications. Status: Acute (3) CKD (chronic kidney disease) stage 4, GFR 15-29 ml/min: Patient is known to have stage IV kidney disease. Kidney function seems stable. Patient is at high risk for [id number] nephropathy Status: Acute (4) Anemia of chronic disease: Status post blood transfusion. Currently the hemoglobin seems to be dropping again?. Status: Acute (5) History of gastritis: Management as per the primary. Status: Acute Additional A&P Information The other problems are #1 iron deficiency anemia #2. Elevated white cell count, etiology? Currently the count is normal #3. A slightly elevated liver enzymes, need to repeat Based on the patient's clinical progress and the results of the above, further management decisions will be made. Attestations Medical Necessity Statement*: Patient requires continued hospital stay for close monitoring and further management Coding Level of Care Code Acute Damper Worker for [facility] Diagnoses Chest pain R07.9 Chest pain type: unspecified Elevated troponin R77.8 CKD (chronic kidney disease) stage 4, GFR 15-29 ml/min N18.4 Anemia of chronic disease D63.8 History of gastritis Z87.19
--- NOTE | 2020-05-19 14:09 | PM.PN ---
Subjective Subjective: Interval history: Patient continues to have chest pain and had positive fecal occult blood test. Her hemoglobin is down to 8.7 this morning and decision was made to proceed with upper endoscopy which showed mild to moderate gastritis. Patient was reevaluated this afternoon and reports that she continues to have rather significant chest pain. Earlier she refused nitroglycerin but I have discussed with patient to allow us to use ointment. Her heart rates frequently goes to 100s but overall much better after small dose metoprolol started. Medications: Reviewed: Yes Medication Review Details: Current Medications Aspirin (Aspirin Ec) 81 mg PO DAILY [facility] Last Admin: 05/18/20 08:28 Dose: 81 mg Documented by: Atorvastatin Calcium (Lipitor) 80 mg PO BEDTIME [facility] Last Admin: 05/18/20 20:44 Dose: 80 mg Documented by: Gabapentin (Neurontin) 200 mg PO BEDTIME [facility] Last Admin: 05/18/20 20:45 Dose: 200 mg Documented by: Sodium Chloride (Sodium Chloride 0.9%) 1,000 mls @ 30 mls/hr IV .Q24H [facility] Last Infusion: 05/19/20 09:34 Dose: Infused Documented by: Magnesium Oxide (Magox) 400 mg PO BID [facility] Metoprolol Tartrate (Lopressor) 12.5 mg PO BID [facility] Last Admin: 05/18/20 17:38 Dose: 12.5 mg Documented by: Morphine Sulfate (Morphine) 2 mg IVP Q4H PRN PRN Reason: SEVERE PAIN Last Admin: 05/17/20 10:48 Dose: 2 mg Documented by: Ondansetron HCl (Zofran) 4 mg IVP Q2M PRN PRN Reason: NAUSEA Pantoprazole Sodium (Protonix) 40 mg PO BID [facility] Last Admin: 05/18/20 17:38 Dose: 40 mg Documented by: Senna/Docusate Sodium (Senna-S) 1 tab PO DAILY [facility] Last Admin: 05/18/20 08:27 Dose: Not Given Documented by: Sodium Polystyrene Sulfonate (Kayexalate) 15 gm PO Q12H [facility] Last Admin: 05/18/20 22:50 Dose: 15 gm Documented by: Vitals/I&O/Wt Last Vital Signs Temp 97.8 F 05/19/20 11:19 Pulse 75 05/19/20 11:19 Resp 14 10/18/20 11:19 BP 108/63 05/19/20 11:19 Pulse Ox 100 05/19/20 11:19 05/18/20 05/19/20 05/19/20 22:59 06:59 14:59 Intake Total 420 / 1130 340 / 340 Balance 420 / 1130 340 / 340 Physical Exam Const: COMMON NORMALS: no acute distress and patient oriented x3 Resp: COMMON NORMALS: normal respiratory effort and clear to auscultation bilaterally AUSCULTATION: clear to auscultation bilaterally Cardio: COMMON NORMALS: regular rate, regular rhythm and S2 normal heart sound present RATE: regular rate RHYTHM: regular rhythm HEART SOUNDS: S2 normal heart sound present OTHER: No lower extremity edema GI: COMMON NORMALS: Normal to inspection, nondistended, normoactive bowel sounds present, Soft to palpation and non-tender PALPATION: Yes Soft to palpation Neuro: COMMON NORMALS: patient oriented x3 and no focal motor deficits Data : 05/19/20 05:12 05/19/20 05:12 Micro: Microbiology 05/18/20 10:45 Occult Blood (FIT) - Final Stool Routine Collection A&P Assessment and plan (1) Unstable angina: Patient meets criteria for non-ST elevation SD, type I versus type II. Status: Acute (2) Anemia of chronic disease: Patient appears to have acute component of anemia as her hemoglobin is down to 7.7 compared to more than eleven 1 year ago. GI bleed cannot be completely ruled out. Status: Acute Additional A&P Information DVT prophylaxis: Heparin Cardiac diet, n.p.o. after midnight Full code History of gout: Hold febuxostat and steroids PLAN: Continue high-dose PPI. Discontinue Kayexalate. Start patient on nitroglycerin ointment. Should patient continue to have chest pain tomorrow I think we will have to consider coronary angiography. I believe patient already shows improvement with Protonix and I expect her bleeding will stop with treatment. Replete magnesium. Attestations Medical Necessity Statement*: Patient with chest pain and GI bleed requires close inpatient monitoring and treatment. Coding Level of Care Code Acute Nat Instructor for [facility] Diagnoses Unstable angina I20.0 Anemia of chronic disease D63.8
[2020-05-19] MEDS: nitroglycerin 1 gm/inch oint Pkt 0.5 INCH TOPICAL ×2 (15:02→20:06)
[2020-05-19] MEDS: morphine 4 mg/mL SDV 1 mL 2 MG IVP (16:22)
--- NOTE | 2020-05-19 16:40 | PM.PN ---
Subjective Subjective: Interval history: I am seeing her in follow up for her renal failure. No chest pain or shortness of breath Medications: Reviewed: Yes Vitals/I&O/Wt Last Vital Signs Temp 97.9 F 05/19/20 15:03 Pulse 122 H 05/19/20 16:07 Resp 24 H 05/19/20 16:22 BP 137/86 05/19/20 16:07 Pulse Ox 98 05/19/20 16:22 05/19/20 05/19/20 05/19/20 06:59 14:59 22:59 Intake Total 340 / 340 Balance 340 / 340 Physical Exam Const: COMMON NORMALS: no acute distress and patient oriented x3 GENERAL APPEARANCE: cooperative and comfortable Resp: COMMON NORMALS: clear to auscultation bilaterally AUSCULTATION: clear to auscultation bilaterally Cardio: COMMON NORMALS: S1 normal heart sound present and S2 normal heart sound present HEART SOUNDS: S1 normal heart sound present and S2 normal heart sound present GI: AUSCULTATION: Yes normoactive bowel sounds Neuro: COMMON NORMALS: patient oriented x3 Skin: COMMON NORMALS: no rashes or lesions noted GENERAL SKIN EXAM: no rashes or lesions noted Data : 05/19/20 05:12 05/19/20 05:12 A&P Assessment and plan (1) CKD (chronic kidney disease) stage 4, GFR 15-29 ml/min: Kidney function staying stable, creatinine is at baseline. Ok to discharge pt from kidney standpoint Status: Acute (2) HTN (hypertension): BP under control Status: Acute (3) Anemia: Monitor hb Status: Acute (4) Acidosis: If persistent, we can add sodium bicarbonate supplements Status: Acute Attestations Medical Necessity Statement*: Renal failure Coding Level of Care Code Acute Open Developer Operator for [facility] Fwd Diagnoses CKD (chronic kidney disease) stage 4, GFR 15-29 ml/min N18.4 HTN (hypertension) I10 Anemia D64.9 Acidosis E87.2
[2020-05-19] MEDS: metoprolol tartrate 25 mg Tablet PO (16:58)
[2020-05-19] MEDS: pantoprazole DR 40 mg Tablet PO (18:27)
[2020-05-19] MEDS: magnesium oxide 400 mg tablet PO (18:28)
[2020-05-19] MEDS: metoprolol tartrate 25 mg Tablet 12.5 MG PO (18:28)
[2020-05-19] MEDS: atorvastatin 40 mg Tablet 80 MG PO (20:06)
[2020-05-19] MEDS: gabapentin 100 mg Capsule 200 MG PO (20:06)
--- NOTE | 2020-05-19 20:33 | PC.NURSE ---
PT IS UP IN CHAIR AT THIS TIME WATCHING TV. PT DENIES PAIN AT THIS TIME. PT STATES THAT THEY WANT TO GO HOME AND THAT TOMORROW SHE WILL MAKE THEM KICK HER OUT. PT IS CURIOUS TO WHY SOMETIMES HER HEART RATE INCREASES WITHOUT ANY EXERTION AND WITHOUT WARNING. THIS NURSE EXPLAINED THAT THERE COULD BE SEVERAL THINGS AND THAT QUESTION IS MORE SUITABLE FOR THE DOCTOR TO ANSWER. PT SEEMED SATISFIED WITH ANSWER. WILL CONTINUE TO MONITOR.
[2020-05-20] MEDS: nitroglycerin 1 gm/inch oint Pkt 0.5 INCH TOPICAL (02:03)
[2020-05-20 03:00] VITALS: BP 121/79; PULSE 92; RESP 18; TEMP 36.8; O2SAT 99
--- NOTE | 2020-05-20 05:15 | PC.NURSE ---
PT RESTING IN BED. PT DENIES PAIN AT THIS TIME. PT STATES THAT THEY DIDN'T SLEEP WELL THAT IT IS THE ANTICIPATION OF GOING HOME. PT STATES THAT THEY WANT TO GO HOME. PT WAS PAIN FREE THROUGHOUT NIGHT. WILL CONTINUE TO MONITOR.
[2020-05-20 05:25] LABS: Basophils # 0.1 10^3/uL (0.0-0.1); Basophils % 0.9 %; Eosinophils # 0.3 10^3/uL (0.0-0.8); Eosinophils % 3.4 %; Hematocrit 29.8 % (37.0-47.0); Hemoglobin 8.5 g/dL (11.5-15.3); Lymphocytes # 1.8 10^3/uL (0.8-4.8); Lymphocytes % 18.1 %; Mean Corpuscular HGB Conc 28.5 g/dL (30.0-36.0); Mean Corpuscular Hemoglobin 22.8 pg (28.0-34.0); Mean Corpuscular Volume 80.1 fL (81-99); Monocytes # 0.9 10^3/uL (0.2-0.9); Neutrophils % 68.1 %; Nucleated Red Blood Cells % 0 %; Platelet Count 315 10^3/cmm (130-400); Red Blood Count 3.72 10^6/uL (4.1-5.3); Red Cell Distribution Width 22.5 % (12.1-15.1); White Blood Count 9.8 10^3/uL (4.0-10.0)
[2020-05-20 05:37] LABS: H. Pylori / CLO Test Negative
[2020-05-20 05:49] LABS: Alanine Aminotransferase 22 U/L (0-33); Albumin Level 2.8 g/dL (3.5-5.2); Alkaline Phosphatase 82 IU/L (35-105); Anion Gap 14.2 (5-19); Aspartate Amino Transferase 18 U/L (0-32); Blood Urea Nitrogen 26 mg/dL (6-20); Calcium 8.9 mg/dL (8.5-10.5); Carbon Dioxide 19 mmol/L (22-29); Chloride 111 mmol/L (98-107); Globulin 2.2 g/dL (1.3-4.6); Glomerular Filtration Rate 18.8 mL/min (90-130); Glucose 96 mg/dL (65-115); Magnesium 1.6 mg/dL (1.7-2.3); Osmolality Calculated 295 mOsm/kg (285-295); Potassium 4.2 mmol/L (3.5-5.1); Sodium 140 mmol/L (136-145); Total Bilirubin 0.2 mg/dL (0.15-1.2)
[2020-05-20 07:00] VITALS: BP 102/63; PULSE 86; RESP 18; TEMP 36.7; O2SAT 99
--- NOTE | 2020-05-20 08:10 | PM.PN ---
Subjective Subjective: Interval history: The patient says she feels better this morning. She is hoping she gets to go home. Vitals/I&O/Wt Last Vital Signs Temp 98.1 F 05/20/20 07:00 Pulse 86 05/20/20 07:00 Resp 18 05/20/20 07:00 BP 102/63 05/20/20 07:00 Pulse Ox 99 05/20/20 07:00 05/19/20 05/20/20 05/20/20 22:59 06:59 14:59 Intake Total 480 / 820 Balance 480 / 820 Physical Exam Narrative: EXAM NARRATIVE: Abdomen remains soft. Data : 05/20/20 04:58 05/20/20 04:58 A&P Assessment and plan (1) History of gastritis: The patient was found to have mild to moderate gastritis on her EGD yesterday. No ongoing bleeding was present but she may have had some very small early erosions. CLOtest was negative. As the patient has been on omeprazole for some time, perhaps changing to a different PPI may be helpful. Disposition per hospitalist team. Please call if I can be of further help. Status: Acute Attestations Medical Necessity Statement*: See admitting service's notation. Coding Level of Care Code Acute Strategic Planning Specialist for Alejandro Kwong Diagnoses History of gastritis Z87.19
[2020-05-20 08:26] LABS: Add Urine Microscopic? NO
[2020-05-20 08:34] LABS: Bilirubin Urine Neg (Negative); Blood Urine Neg (Negative); Glucose Urine UA Norm (Normal); Ketones Urine Negative (Negative); Nitrate Urine Negative (Negative); Protein Urine Neg (Negative); Urine Appearance Clear (CLEAR); Urine Color Yellow (Yellow); Urobilinogen Urine Norm (Negative); pH Urine 5 (5-7)
[2020-05-20 08:35] LABS: Leukocyte Esterase Urine Negative (Negative)
[2020-05-20] MEDS: aspirin 81 mg EC Tablet PO (08:38)
[2020-05-20] MEDS: metoprolol tartrate 25 mg Tablet 12.5 MG PO (08:38)
[2020-05-20] MEDS: magnesium oxide 400 mg tablet PO (08:38)
[2020-05-20] MEDS: pantoprazole DR 40 mg Tablet PO (08:38)
--- NOTE | 2020-05-20 09:26 | P.DS_ITS ---
Discharge Providers Date of Admission: 05/17/20 13:58 Date of Discharge: May 20, 2020 Attending Provider at Admission: Chuckie Hair MD Attending Provider at Discharge: Reddy Lea MD Diagnoses at Discharge Discharge Diagnosis (1) Supraventricular tachycardia, paroxysmal: Status: Acute (2) Anemia: Status: Acute Problem details: Acute on chronic, microcytic. (3) Upper GI bleed: Status: Acute Problem details: Present on admission (4) Hypomagnesemia: Status: Acute (5) Hyperkalemia: Status: Acute (6) Non-ST elevation IA (NSTEMI): Status: Acute Problem details: [place] to be of type II, present on admission (7) CKD (chronic kidney disease) stage 4, GFR 15-29 ml/min: Status: Acute (8) Gastritis: Status: Acute Problem details: Present on admission. NSAID and steroid induced. Patient was taking chewable aspirin. Reason for Visit Reason for Visit: CP/ RAPID HEART RATE Hospital Course Discharge Summary: Patient presented with severe chest pain and elevated troponin. She was found to have severe gastritis which appears to be due to chewable aspirin and or/steroids she has been frequently treated for gout exacerbations. Patient diagnosed with non-ST elevation IA which appears to be of type II and related to acute GI bleed as well as episode of tachyarrhythmia with heart rate in 200s. This appears to be supraventricular tachycardia and we will request 30-day event monitor after patient is discharged. Patient underwent sestamibi Lexiscan and echocardiogram. Risks and benefits of further evaluation with coronary angiography were weighted based on underlying chronic kidney disease and findings. It was decided to avoid any further evaluation at this point. I have discussed with patient that she may still very well have underlying clinically significant coronary artery disease and may require further evaluation down the road. This morning patient reports feeling much better and wants to go home. Reports that her chest pain almost completely res olved and now she only has very minimal discomfort. We have discussed that I would like to make sure she is pain-free after nitroglycerin ointment is removed before going home. Patient is very eager to go home and does not want to wait much. Patient was started on low-dose metoprolol and appears to have much improved heart rate. It looks like patient did not respond to omeprazole and therefore she will be switched to Protonix. She had evidence of gastritis on EGD performed by Dr. Granda but otherwise no evidence of GI bleed. She received 1 unit of PRBC and her hemoglobin and platelets appear to be stable. Patient is not on diuretic and is taking potassium at home. I will discontinue potassium supplement given her chronic kidney disease and I will request repeat lab work in several days prior to primary care physician follow-up. This morning patient denies shortness of breath. She will follow-up with Dr. Martinez post discharge. She is well aware to immediately present to ER if her c hest pain comes back. Physical Exam Const: COMMON NORMALS: no acute distress and patient oriented x3 Resp: COMMON NORMALS: normal respiratory effort and clear to auscultation bilaterally AUSCULTATION: clear to auscultation bilaterally Cardio: COMMON NORMALS: regular rate, regular rhythm and S2 normal heart sound present RATE: regular rate RHYTHM: regular rhythm HEART SOUNDS: S2 normal heart sound present OTHER: No lower extremity edema GI: COMMON NORMALS: Normal to inspection, nondistended, normoactive bowel sounds present, Soft to palpation and non-tender PALPATION: Yes Soft to palpation Neuro: COMMON NORMALS: patient oriented x3 and no focal motor deficits Discharge Data Data Completed and Pending: Completed Studies During Hospitalization Category Date Time Status Cardiac Stress Te st MIBI [Sestamibi Stress Test Reque st Exams 05/17/20 10:12 Draft ] Routine XR chest 1V ajit ble [id number] Stat Exams 05/16/20 18:48 Completed NM michi perf SPECT r/s* [id number] Routin e Nuc Med 05/17/20 06:20 Completed CV echo complete* [id number] Routine Ultrasound 05/17/20 23:13 Completed Pending at discharge Category Date Time Status ES surgery / GI i mages Routine Exams 05/19/20 09:16 Ordered Complete Blood Co unt w/Auto AM LABS Lab 05/21/20 04:00 Ordered Comprehensive Met abolic Panel AM LA BS Lab 05/21/20 04:00 Ordered Magnesium AM LABS Lab 05/21/20 04:00 Ordered Labs from last 24 hours 05/20/20 05/20/20 05/20/20 08:10 04:58 04:58 WBC 9.8 RBC 3.72 L Hgb 8.5 L Hct 29.8 L MCV 80.1 L MCH 22.8 L MCHC 28.5 L RDW 22.5 H Plt Count 315 MPV 9.0 Neut % (Auto) 68.1 Lymph % (Auto) 18.1 [place] % (Auto) 9.0 Eos % (Auto) 3.4 Baso % (Auto) 0.9 Neut # (Auto) 6.70 Lymph # (Auto) 1.8 [place] # (Auto) 0.9 Eos # (Auto) 0.3 Baso # (Auto) 0.1 Nucleated RBC % (a uto) 0 Nucleated RBCs # 0.0 Sodium 140 Potassium 4.2 Chloride 111 H Carbon Dioxide 19 L Anion Gap 14.2 BUN 26 H Creatinine 2.7 H GFR Calculation 18.8 L Glucose 96 Calculated Osmolal ity 295 Calcium 8.9 Magnesium 1.6 L Total Bilirubin 0.2 AST 18 ALT 22 Alkaline Phosphata se 82 Total Protein 5.0 L Albumin 2.8 L Globulin 2.2 Urine Color Yellow Urine Appearance Clear Urine pH 5 Ur Specific Gravit y 1.020 Urine Protein Neg Urine Glucose (UA) Norm Urine Ketones Negative Urine Blood Neg Urine Nitrate Negative Urine Bilirubin Neg Urine Urobilinogen Norm Ur Leukocyte Chantal ase Negative H. pylori IgG Anti body 05/19/20 09:19 WBC RBC Hgb Hct MCV MCH MCHC RDW Plt Count MPV Neut % (Auto) Lymph % (Auto) [place] % (Auto) Eos % (Auto) Baso % (Auto) Neut # (Auto) Lymph # (Auto) [place] # (Auto) Eos # (Auto) Baso # (Auto) Nucleated RBC % (a uto) Nucleated RBCs # Sodium Potassium Chloride Carbon Dioxide Anion Gap BUN Creatinine GFR Calculation Glucose Calculated Osmolal ity Calcium Magnesium Total Bilirubin AST ALT Alkaline Phosphata se Total Protein Albumin Globulin Urine Color Urine Appearance Urine pH Ur Specific Gravit y Urine Protein Urine Glucose (UA) Urine Ketones Urine Blood Urine Nitrate Urine Bilirubin Urine Urobilinogen Ur Leukocyte Chantal ase H. pylori IgG Anti body Negative Vitals: Last Vital Signs Temp 98.1 F 05/20/20 07:00 Pulse 86 05/20/20 07:00 Resp 18 05/20/20 07:00 BP 102/63 05/20/20 07:00 Pulse Ox 99 05/20/20 07:00 Discharge Plan Discharge Patient Disposition: Home Condition: Stable Prescriptions: New aspirin 81 mg Tablet,Delayed Release (Dr/Ec) 81 mg PO DAILY Qty: 30 RF: 0 magnesium oxide 400 mg (241.3 mg magnesium) Tablet 400 mg PO DAILY Qty: 60 RF: 0 metoprolol succinate 25 mg tablet extended release 24 hr 25 mg PO DAILY Qty: 30 RF: 0 nitroglycerin 0.4 mg tablet, sublingual 0.4 mg SUBLINGUAL Q5M PRN (Reason: chest pain) Qty: 25 RF: 0 atorvastatin 10 mg tablet 10 mg PO QPM Qty: 30 RF: 0 sennosides-docusate sodium 8.6-50 mg Tablet 1 tab PO DAILY PRN (Reason: constipation) Qty: 30 RF: 0 pantoprazole 40 mg Tablet,Delayed Release (Dr/Ec) 40 mg PO BID Qty: 60 RF: 0 Continued ergocalciferol (vitamin D2) 1,250 mcg (50,000 unit) capsule 50,000 unit PO Q7D RF: 0 hydrocodone-acetaminophen 5-325 mg tablet 1 tab PO BID PRN (Reason: Pain) RF: 0 febuxostat 40 mg tablet 40 mg PO DAILY RF: 0 acyclovir 800 mg tablet 800 mg PO DAILY PRN (Reason: for cold sore) Qty: 30 RF: 2 Zofran 4 mg Tablet 4 mg PO Q8H PRN (Reason: nausea) RF: 0 Klonopin 1 mg Tablet 1 mg PO DAILY PRN (Reason: Anxiety) RF: 0 sodium bicarbonate 650 mg Tablet 650 mg PO BID RF: 0 gabapentin 100 mg Capsule 200 mg PO BEDTIME RF: 0 dicyclomine 10 mg Capsule 10 mg PO QID PRN (Reason: Stomach Pain) RF: 0 Discontinued potassium chloride 20 mEq tablet,ER particles/crystals 20 meq PO BID RF: 0 omeprazole 40 mg capsule,delayed release(DR/EC) 40 mg PO BID RF: 0 aspirin 81 mg Tablet,Chewable 81 mg PO DAILY RF: 0 Discharge Orders: Discharge Order (Routine); Ordered 05/20/20 Ordered By: Reddy Lea Other Ambulatory Orders: Complete Blood Count w/Auto (Routine) Timeframe: 3 Days Location: Determined by Patient Ordered By: Reddy Lea Comprehensive Metabolic Panel (Routine) Timeframe: 3 Days Facility: [facility] - Location: Lab - Main Lab Ordered By: Reddy Lea CA 30 day event monitor (Routine) Timeframe: 1 Day Facility: [facility] - Location: Cardiac Diagnostic Laboratory Ordered By: Reddy Lea Magnesium (Routine) Timeframe: 3 Days Facility: [facility] - Location: Lab - Main Lab Ordered By: Reddy Lea Referrals: Peri Martinez MD [Physician] - 2 weeks Zaki Banerjee FNP-C [Family Provider] - 4-7 days Discharge Diet: Advance as tolerated Discharge Activity: Increase activity as tolerated Activity Restrictions/Additional Instructions: Please call your doctor or present to emergency department if your condition worsens including chest pain or you develop diarrhea, lightheadedness, fatigue or see blood in your stool or black stool. Please keep blood pressure and heart rate log 3 times daily to present to primary care physician next visit for medication adjustment. Please make sure you take 81 mg aspirin enteric-coated and not chewable form. Please note that magnesium may cause diarrhea. Please discuss with your doctor to obtain refill for Protonix in 1 month which could be switched to only once daily if you are asymptomatic. Discharge Attestations Time Spent in Discharge Care*: greater than 30 min Quality Metrics Clinical Quality Measures During this hospital stay, did patient experience: AMI Clinical Trial Parti cipant: No Contraindication to aspirin (AMI): Aspirin given Contraindication to statin: Statin prescribed Coding Level of Care Code Acute Quantitative Equity Head for g Fwd Diagnoses Supraventricular tachycardia, paroxysmal I47.1 Anemia D64.9 Upper GI bleed K92.2 Hypomagnesemia E83.42 Hyperkalemia E87.5 Non-ST elevation IA (NSTEMI) I21.4 CKD (chronic kidney disease) stage 4, GFR 15-29 ml/min N18.4 Gastritis K29.70
--- NOTE | 2020-05-20 09:40 | PM.PACU ---
PACU note Post-Anesthesia Exam: vital signs stable Disposition: back to floor
--- NOTE | 2020-05-20 09:59 | P.PN_ITS ---
Subjective Medications: Reviewed: Yes Medication Review Details: Current Medications Aspirin (Aspirin Ec) 81 mg PO DAILY [facility] Last Admin: 05/20/20 08:38 Dose: 81 mg Documented by: Atorvastatin Calcium (Lipitor) 80 mg PO BEDTIME [facility] Last Admin: 05/19/20 20:06 Dose: 80 mg Documented by: Gabapentin (Neurontin) 200 mg PO BEDTIME [facility] Last Admin: 05/19/20 20:06 Dose: 200 mg Documented by: Sodium Chloride (Sodium Chloride 0.9%) 1,000 mls @ 30 mls/hr IV .Q24H [facility] Last Infusion: 05/19/20 09:34 Dose: Infused Documented by: Magnesium Oxide (Magox) 400 mg PO BID [facility] Last Admin: 05/20/20 08:38 Dose: 400 mg Documented by: Metoprolol Tartrate (Lopressor) 12.5 mg PO BID [facility] Last Admin: 05/20/20 08:38 Dose: 12.5 mg Documented by: Morphine Sulfate (Morphine) 2 mg IVP Q4H PRN PRN Reason: SEVERE PAIN Last Admin: 05/19/20 16:22 Dose: 2 mg Documented by: Nitroglycerin (Nitro-Bid) 0.5 inch TOPICAL Q6H [facility] Last Admin: 05/20/20 02:03 Dose: 0.5 inch Documented by: Ondansetron HCl (Zofran) 4 mg IVP Q2M PRN PRN Reason: NAUSEA Pantoprazole Sodium (Protonix) 40 mg PO BID [facility] Last Admin: 05/20/20 08:38 Dose: 40 mg Documented by: Senna/Docusate Sodium (Senna-S) 1 tab PO DAILY [facility] Last Admin: 05/19/20 10:47 Dose: Not Given Documented by: Vitals/I&O/Wt Last Vital Signs Temp 98.1 F 05/20/20 07:00 Pulse 86 05/20/20 07:00 Resp 18 05/20/20 07:00 BP 102/63 05/20/20 07:00 Pulse Ox 99 05/20/20 07:00 05/19/20 05/20/20 05/20/20 22:59 06:59 14:59 Intake Total 480 / 820 Balance 480 / 820 Physical Exam Narrative: EXAM NARRATIVE: GENERAL: The patient is alert and oriented times three. Not in any acute distress. HEENT: No significant pallor, icterus or lymphadenopathy. NECK: Trachea appears to be central. No masses noted. No JVD or thyromegaly appreciated. No carotid bruit. RESPIRATORY: Chest is symmetrical. No intercostals muscle retraction or any accessory muscle activation. There is no chest wall tenderness. Breath sounds are heard bilaterally. No rales or rhonchi heard. No evidence of any consolidation. BREASTS: Deferred. HEART: The PMI is in the 5th left intercostals space just inside the midclavicular line. No palpable precordial events. S1 and S2 are normal. No S3 or S4 heard. No pericardial rub or any click heard. Short systolic murmur in the lower sternal border. No diastolic murmurs. No pericardial rub. ABDOMEN: No vessel pulsations or distention. No tenderness. No organomegaly appreciated. No abdominal bruit. Bowel sounds are normally heard. : Deferred. RECTAL: Deferred. LYMPHATIC: No lymphadenopathy noted in the neck or groin. EXTREMITIES: No edema or cyanosis. No clubbing. The pulses are symmetrical bilaterally. The radial, femoral, dorsalis pedis and the posterior tibial pulses are palpated and found to be in good volume and amplitude. MUSCULOSKELETAL: No acute joint deformities or swelling SKIN: There are no significant scars or skin rash noted. NEUROPSYCHIATRIC: The patient is alert and oriented x3. Appears to be in a good mood. The higher functions are grossly within normal limits. No tremors or rigidity noted. Data : 05/20/20 04:58 05/20/20 04:58 Other Labs: Laboratory Last Values WBC 9.8 10^3/uL (4.0-10.0) 05/20/20 04:58 RBC 3.72 10^6/uL (4.1-5.3) L 05/20/20 04:58 Hgb 8.5 g/dL (11.5-15.3) L 05/20/20 04:58 Hct 29.8 % (37.0-47.0) L 05/20/20 04:58 MCV 80.1 fL (81-99) L 05/20/20 04:58 MCH 22.8 pg (28.0-34.0) L 05/20/20 04:58 MCHC 28.5 g/dL (30.0-36.0) L 05/20/20 04:58 RDW 22.5 % (12.1-15.1) H 05/20/20 04:58 Plt Count 315 10^3/cmm (130-400) 05/20/20 04:58 MPV 9.0 fL (7.4-10.4) 05/20/20 04:58 Neut % (Auto) 68.1 % 05/20/20 04:58 Lymph % (Auto) 18.1 % 05/20/20 04:58 [place] % (Auto) 9.0 % 05/20/20 04:58 Eos % (Auto) 3.4 % 05/20/20 04:58 Baso % (Auto) 0.9 % 05/20/20 04:58 Neut # (Auto) 6.70 10^3/uL (1.8-7.7) 05/20/20 04:58 Lymph # (Auto) 1.8 10^3/uL (0.8-4.8) 05/20/20 04:58 [place] # (Auto) 0.9 10^3/uL (0.2-0.9) 05/20/20 04:58 Eos # (Auto) 0.3 10^3/uL (0.0-0.8) 05/20/20 04:58 Baso # (Auto) 0.1 10^3/uL (0.0-0.1) 05/20/20 04:58 Nucleated RBC % (auto) 0 % 05/20/20 04:58 Nucleated RBCs # 0.0 /100WBC 05/20/20 04:58 D-Dimer 0.79 ug/mIFEU (0-0.59) H 05/16/20 19:22 Sodium 140 mmol/L (136-145) 05/20/20 04:58 Potassium 4.2 mmol/L (3.5-5.1) 05/20/20 04:58 Chloride 111 mmol/L (98-107) H 05/20/20 04:58 Carbon Dioxide 19 mmol/L (22-29) L 05/20/20 04:58 Anion Gap 14.2 (5-19) 05/20/20 04:58 BUN 26 mg/dL (6-20) H 05/20/20 04:58 Creatinine 2.7 mg/dL (0.5-0.9) H 05/20/20 04:58 GFR Calculation 18.8 mL/min (90-130) L 05/20/20 04:58 Glucose 96 mg/dL (65-115) 05/20/20 04:58 Calculated Osmolality 295 mOsm/kg (285-295) 05/20/20 04:58 Calcium 8.9 mg/dL (8.5-10.5) 05/20/20 04:58 Magnesium 1.6 mg/dL (1.7-2.3) L 05/20/20 04:58 Iron 18 ug/dL (37-145) L 05/16/20 19:22 TIBC 322 mcg/dl 05/16/20 19:22 % Saturation 5.5 % (20-50) L 05/16/20 19:22 Unsat Iron Binding 304 ug/dL (112-347) 05/16/20 19:22 Ferritin 6 ng/mL (15-150) L 05/16/20 19:22 Total Bilirubin 0.2 mg/dL (0.15-1.2) 05/20/20 04:58 AST 18 U/L (0-32) 05/20/20 04:58 ALT 22 U/L (0-33) 05/20/20 04:58 Alkaline Phosphatase 82 IU/L (35-105) 05/20/20 04:58 Troponin T Baseline 33 ng/L (0-10) H 05/16/20 19:22 Troponin T 120 Minute 44.46 ng/L (0-10) H 05/16/20 21:15 Delta Troponin T 11.46 ABS# (0-10) H* 05/16/20 21:15 Troponin T Hi Sens 6Hr 41.63 ng/L (0-10) H 05/17/20 00:49 Troponin T Hi Sens 6Hr Delta 8.63 ng/L (0-12) 05/17/20 00:49 Total Protein 5.0 g/dL (6.6-8.7) L 05/20/20 04:58 Albumin 2.8 g/dL (3.5-5.2) L 05/20/20 04:58 Globulin 2.2 g/dL (1.3-4.6) 05/20/20 04:58 Vitamin B12 520 pg/mL (232-1245) 05/16/20 19:22 Folate 5.8 ng/mL (4.8-37.3) 05/16/20 19:22 Urine Color Yellow (Yellow) 05/20/20 08:10 Urine Appearance Clear (CLEAR) 05/20/20 08:10 Urine pH 5 (5-7) 05/20/20 08:10 Ur Specific [place] 1.020 (1.005-1.030) 05/20/20 08:10 Urine Protein Neg (Negative) 05/20/20 08:10 Urine Glucose (UA) Norm (Normal) 05/20/20 08:10 Urine Ketones Negative (Negative) 05/20/20 08:10 Urine Blood Neg (Negative) 05/20/20 08:10 Urine Nitrate Negative (Negative) 05/20/20 08:10 Urine Bilirubin Neg (Negative) 05/20/20 08:10 Urine Urobilinogen Norm mg/dL (Negative) 05/20/20 08:10 Ur Leukocyte Esterase Negative (Negative) 05/20/20 08:10 H. pylori IgG Antibody Negative 05/19/20 09:19 Blood Type O Positive 05/17/20 12:39 Rho(D) Type Positive 05/17/20 12:39 Antibody Screen Negative 05/17/20 12:39 Crossmatch See Detail 05/17/20 12:39 A&P Assessment and plan (1) Chest pain: If the patient continues to have the chest pains, we may need to consider a cardiac catheterization, to further evaluate the coronary status and decide on further management. Patient had an upper endoscopy and was found to have gastritis. She is on a proton pump inhibitor. Discussed with Dr. Lea. It was thought to be appropriate to consider cardiac catheterization, if she continues to have the chest pains. Status: Acute Qualifiers: Chest pain type: unspecified Qualified Code(s): R07.9 - Chest pain, unspecified (2) Elevated troponin: In view of the tachyarrhythmia and the chronic kidney disease, most likely this is related to type II myocardial infarction. Her EKG is unremarkable. May continue on the current medications. Status: Acute (3) CKD (chronic kidney disease) stage 4, GFR 15-29 ml/min: Patient is known to have stage IV kidney disease. Kidney function seems stable. Patient is at high risk for [id number] nephropathy Status: Acute (4) Anemia of chronic disease: Status post blood transfusion. Currently the hemoglobin seems to be dropping again?. Status: Acute (5) History of gastritis: Management as per the primary. Status: Acute Additional A&P Information The other problems are #1 iron deficiency anemia #2. Elevated white cell count, etiology? Currently the count is normal #3. A slightly elevated liver enzymes, need to repeat Based on the patient's clinical progress and the results of the above, further management decisions will be made. Coding Level of Care Code Acute Rechecker for Chg Fwd Diagnoses Chest pain R07.9 Chest pain type: unspecified Elevated troponin R77.8 CKD (chronic kidney disease) stage 4, GFR 15-29 ml/min N18.4 Anemia of chronic disease D63.8 History of gastritis Z87.19
[2020-05-20 10:40] VITALS: BP 114/64; PULSE 89; RESP 20; TEMP 36.7; O2SAT 100
--- NOTE | 2020-05-20 10:52 | DCPLANNER ---
IMM completed on 05/20/2020 @ 1042. Copy of rights given to pt.
[2020-05-20 12:11] VITALS: BP 114/64; PULSE 89; RESP 20; TEMP 36.7; O2SAT 100
== END 2020-05-20 12:10 | disposition home or self-care (01) | DRG 281 ==
LOC: ER 22:18 → CSU 23:07
PROVIDERS: Emergency Medicine; Surgery; Admitting Provider Internal Medicine; Family Provider Nurse Practitioner; Visit Provider Internal Medicine
PROC: 0DJ08ZZ Inspection of Upper Intestinal Tract, Via Natural or Artificial Opening Endoscopic (ICD-10-PCS; CPT 43235; principal; 2020-05-19 09:00)
DX: I21.4 Non-ST elevation (NSTEMI) myocardial infarction (principal); N18.4 Chronic kidney disease, stage 4 (severe); E87.2 Acidosis; I47.1 Supraventricular tachycardia; K29.70 Gastritis, unspecified, without bleeding; D63.1 Anemia in chronic kidney disease; I12.9 Hypertensive chronic kidney disease with stage 1 through stage 4 chronic kidney disease, or unspecified chronic kidney disease; E87.6 Hypokalemia; D50.9 Iron deficiency anemia, unspecified; K21.9 Gastro-esophageal reflux disease without esophagitis; M10.9 Gout, unspecified; K58.9 Irritable bowel syndrome, unspecified; E78.2 Mixed hyperlipidemia; K59.01 Slow transit constipation; E89.0 Postprocedural hypothyroidism; Z87.891 Personal history of nicotine dependence; K44.9 Diaphragmatic hernia without obstruction or gangrene; Z79.891 Long term (current) use of opiate analgesic; E83.42 Hypomagnesemia; T39.395A Adverse effect of other nonsteroidal anti-inflammatory drugs [NSAID], initial encounter; T38.0X5A Adverse effect of glucocorticoids and synthetic analogues, initial encounter
CPT/HCPCS: 12345; 36415; 36430; 43239; 71045; 78452; 80048; 80053; 81003; 82274; 82607; 82728; 82746; 83540; 83550; 83735; 84484; 85025; 85378; 86850; 86900; 86920; 87077; 90471; 90686; 90732; 93005; 93017; 93306; 96372; 96375; 99283; A9500; C9113; G0378; J0280; J1170; J1644; J1756; J2060; J2270; J2704; J2785; J3010; J7030; J7040; P9016; Q3014

== ENCOUNTER → 2020-07-11 11:01 | Day surgery (SDC) | payer MEDICARE, MEDICAID, SELFPAY ==
[2020-07-11 11:16] VITALS: BMI 22.4
[2020-07-11] MEDS: ferric carboxy (IVPB) 750 MG in sodium chloride 0.9% (100 ml) 100 ML 345 MG IV (11:30)
[2020-07-11 11:35] VITALS: BP 106/66; PULSE 78; RESP 18; TEMP 36.9; O2SAT 98
== END ==
PROVIDERS: PCP Nurse Practitioner; Visit Provider Nurse Practitioner
DX: D50.8 Other iron deficiency anemias (principal)
CPT/HCPCS: 96365; J1439

== ENCOUNTER → 2020-07-18 11:01 | Day surgery (SDC) | payer MEDICARE, MEDICAID, SELFPAY ==
[2020-07-18 11:20] VITALS: BP 108/64; PULSE 82; RESP 18; TEMP 36.3; O2SAT 98
[2020-07-18] MEDS: ferric carboxy (IVPB) 750 MG in sodium chloride 0.9% (100 ml) 100 ML 345 MG IV (11:43)
== END ==
PROVIDERS: PCP Nurse Practitioner; Visit Provider Nurse Practitioner
DX: D50.8 Other iron deficiency anemias (principal)
CPT/HCPCS: 96365; J1439

== ENCOUNTER → 2020-07-24 10:14 | Outpatient (BNVA) | payer MEDICARE, MEDICAID, SELFPAY | PROVIDERS: PCP Nurse Practitioner; Visit Provider Nurse Practitioner | DX: R39.9 Unspecified symptoms and signs involving the genitourinary system (principal) | CPT/HCPCS: 81000 ==

== ENCOUNTER 2021-02-07 10:37 | Outpatient (CLI) | payer MEDICARE, MEDICAID, SELFPAY ==
[2021-02-07 11:12] LABS: Basophils # 0.1 10^3/uL (0.0-0.1); Basophils % 1.3 %; Eosinophils # 0.2 10^3/uL (0.0-0.8); Eosinophils % 1.8 %; Hematocrit 38.5 % (37.0-47.0); Hemoglobin 11.8 g/dL (11.5-15.3); Lymphocytes # 1.7 10^3/uL (0.8-4.8); Lymphocytes % 19.9 %; Mean Corpuscular HGB Conc 30.6 g/dL (30.0-36.0); Mean Corpuscular Hemoglobin 29.7 pg (28.0-34.0); Mean Platelet Volume 9.5 fL (7.4-10.4); Monocytes # 0.6 10^3/uL (0.2-0.9); Monocytes % 7.1 %; Neutrophils # 6.03 10^3/uL (1.8-7.7); Neutrophils % 69.7 %; Nucleated Red Blood Cells % 0 %; Platelet Count 258 10^3/cmm (130-400); Red Blood Count 3.97 10^6/uL (4.1-5.3); Red Cell Distribution Width 12.6 % (12.1-15.1); White Blood Count 8.7 10^3/uL (4.0-10.0)
[2021-02-07 12:16] LABS: Calcium 9.3 mg/dL (8.5-10.5)
[2021-02-07 12:23] LABS: Parathyroid Hormone 98.8 pg/mL (15-65)
[2021-02-07 12:32] LABS: Creatinine Urine, Random 129 mg/dL (28-217); Microalbum Creatinine Ratio Ur 39 mg/dL (0-20); Microalbumin Random Urine 5 ug/dL (0-20)
[2021-02-07 18:22] LABS: Albumin Level 3.7 g/dL (3.5-5.2); Blood Urea Nitrogen 40 mg/dL (6-20); Calcium 9.3 mg/dL (8.5-10.5); Carbon Dioxide 20 mmol/L (22-29); Chloride 106 mmol/L (98-107); Glucose 64 mg/dL (65-115); Phosphorus 3.7 mg/dL (2.5-4.5); Sodium 140 mmol/L (136-145)
[2021-02-07 18:23] LABS: Anion Gap 18.1 (5-19); Potassium 4.1 mmol/L (3.5-5.1)
[2021-02-07 18:39] LABS: 25 Hydroxy Vitamin D 38 ng/mL (30-100)
== END 2021-02-07 10:38 | disposition home or self-care (01) ==
PROVIDERS: PCP Nurse Practitioner; Visit Provider Internal Medicine Nephrology
DX: D63.1 Anemia in chronic kidney disease (principal); N18.4 Chronic kidney disease, stage 4 (severe); I10 Essential (primary) hypertension; D50.8 Other iron deficiency anemias; E55.9 Vitamin D deficiency, unspecified
CPT/HCPCS: 80069; 82044; 82306; 82310; 83970; 85025

== ENCOUNTER → 2021-04-09 14:17 | Outpatient (BNVA) | payer MEDICARE, MEDICAID, SELFPAY | PROVIDERS: PCP Nurse Practitioner; Visit Provider Nurse Practitioner | DX: M53.3 Sacrococcygeal disorders, not elsewhere classified (principal) | CPT/HCPCS: 72220 ==

== ENCOUNTER 2021-08-21 10:39 | Outpatient (CLI) | payer MEDICARE, MEDICAID, SELFPAY ==
[2021-08-21 11:52] LABS: Basophils # 0.1 10^3/uL (0.0-0.1); Eosinophils # 0.2 10^3/uL (0.0-0.8); Eosinophils % 1.6 %; Hematocrit 38.2 % (37.0-47.0); Hemoglobin 12.6 g/dL (11.5-15.3); Lymphocytes # 1.7 10^3/uL (0.8-4.8); Lymphocytes % 15.8 %; Mean Corpuscular Hemoglobin 30.9 pg (28.0-34.0); Mean Corpuscular Volume 93.6 fl (81-99); Monocytes # 0.5 10^3/uL (0.2-0.9); Monocytes % 4.9 %; Neutrophils # 8.32 10^3/uL (1.8-7.7); Neutrophils % 76.3 %; Nucleated Red Blood Cells % 0 %; Platelet Count 341 10^3/cmm (130-400); Red Blood Count 4.08 10^6/uL (4.1-5.3); Red Cell Distribution Width 13.3 % (12.1-15.1); White Blood Count 10.9 10^3/uL (4.0-10.0)
[2021-08-21 12:18] LABS: Calcium 9.6 mg/dL (8.5-10.5)
[2021-08-21 12:18] LABS: Creatinine Urine, Random 140 mg/dL (28-217); Microalbumin Random Urine 11 ug/dL (0-20)
[2021-08-21 12:25] LABS: Parathyroid Hormone 84.6 pg/mL (15-65)
[2021-08-21 12:26] LABS: Microalbum Creatinine Ratio Ur 79 mg/dL (0-20)
[2021-08-21 12:28] LABS: Albumin Level 4.2 g/dL (3.5-5.2); Blood Urea Nitrogen 41 mg/dL (6-20); Calcium 9.4 mg/dL (8.5-10.5); Carbon Dioxide 22 mmol/L (22-29); Chloride 103 mmol/L (98-107); Ferritin 156 ng/mL (15-150); Glomerular Filtration Rate 21.5 mL/min (90-130); Glucose 72 mg/dL (65-115); Iron 106 ug/dL (37-145); Percent Saturation 33.5 % (20-50); Phosphorus 3.1 mg/dL (2.5-4.5); Sodium 141 mmol/L (136-145); Total Iron Binding Capacity 316 mcg/dl; Unsaturated Iron Binding 210 ug/dL (112-347)
[2021-08-21 13:04] LABS: 25 Hydroxy Vitamin D 100 ng/mL (30-100)
== END 2021-08-21 10:40 | disposition home or self-care (01) ==
LOC: LAB 10:57
PROVIDERS: PCP Nurse Practitioner; Visit Provider Registered Nurse
DX: D50.8 Other iron deficiency anemias (principal); N18.4 Chronic kidney disease, stage 4 (severe)
CPT/HCPCS: 36415; 80069; 82044; 82306; 82310; 82728; 83540; 83550; 83970; 85025

== ENCOUNTER 2022-01-21 10:00 | Outpatient (CLI) | payer MEDICARE, MEDICAID, SELFPAY ==
[2022-01-21 11:22] LABS: Basophils # 0.1 10^3/uL (0.0-0.1); Basophils % 0.8 %; Eosinophils # 0.2 10^3/uL (0.0-0.8); Eosinophils % 2.2 %; Hematocrit 37.7 % (37.0-47.0); Hemoglobin 13.4 g/dL (11.5-15.3); Lymphocytes # 1.6 10^3/uL (0.8-4.8); Lymphocytes % 14.3 %; Mean Corpuscular HGB Conc 35.5 g/dL (30.0-36.0); Mean Corpuscular Hemoglobin 32.3 pg (28.0-34.0); Mean Corpuscular Volume 90.8 fl (81-99); Mean Platelet Volume 9.8 fL (7.4-10.4); Monocytes # 0.8 10^3/uL (0.2-0.9); Monocytes % 6.9 %; Neutrophils # 8.23 10^3/uL (1.8-7.7); Neutrophils % 75.3 %; Nucleated Red Blood Cells % 0 %; Platelet Count 478 10^3/cmm (130-400); Red Blood Count 4.15 10^6/uL (4.1-5.3); Red Cell Distribution Width 14.1 % (12.1-15.1)
[2022-01-21 11:57] LABS: Creatinine Urine, Random 130 mg/dL (28-217); Microalbumin Random Urine 14 ug/dL (0-20)
[2022-01-21 11:59] LABS: Calcium 9.9 mg/dL (8.5-10.5)
[2022-01-21 12:02] LABS: Albumin Level 4.1 g/dL (3.5-5.2); Anion Gap 16.2 (5-19); Blood Urea Nitrogen 68 mg/dL (6-20); Calcium 9.3 mg/dL (8.5-10.5); Carbon Dioxide 26 mmol/L (22-29); Chloride 99 mmol/L (98-107); Glomerular Filtration Rate 14.3 mL/min (90-130); Glucose 101 mg/dL (65-115); Phosphorus 4.4 mg/dL (2.5-4.5); Potassium 3.2 mmol/L (3.5-5.1); Sodium 138 mmol/L (136-145)
[2022-01-21 12:05] LABS: Microalbum Creatinine Ratio Ur 108 mg/dL (0-20)
[2022-01-21 12:05] LABS: Parathyroid Hormone 164.3 pg/mL (15-65)
== END 2022-01-21 10:01 | disposition home or self-care (01) ==
PROVIDERS: PCP Nurse Practitioner; Visit Provider Registered Nurse
DX: N18.4 Chronic kidney disease, stage 4 (severe) (principal)
CPT/HCPCS: 80069; 82044; 82310; 83970; 85025

== ENCOUNTER 2022-02-05 10:44 | Outpatient (CLI) | payer MEDICARE, MEDICAID, SELFPAY ==
[2022-02-05 11:41] LABS: Albumin Level 3.9 g/dL (3.5-5.2); Anion Gap 16.5 (5-19); Blood Urea Nitrogen 39 mg/dL (6-20); Calcium 10.4 mg/dL (8.5-10.5); Carbon Dioxide 25 mmol/L (22-29); Chloride 103 mmol/L (98-107); Glomerular Filtration Rate 19.5 mL/min (90-130); Glucose 87 mg/dL (65-115); Phosphorus 4.3 mg/dL (2.5-4.5); Potassium 3.5 mmol/L (3.5-5.1); Sodium 141 mmol/L (136-145)
[2022-02-05 11:57] LABS: 25 Hydroxy Vitamin D 59 ng/mL (30-100)
== END 2022-02-05 10:45 | disposition home or self-care (01) ==
LOC: LAB 10:53
PROVIDERS: PCP Nurse Practitioner; Visit Provider Internal Medicine Nephrology
DX: N18.5 Chronic kidney disease, stage 5 (principal); E67.3 Hypervitaminosis D
CPT/HCPCS: 36415; 80069; 82306

== ENCOUNTER 2022-04-24 12:47 | Outpatient (CLI) | payer MEDICARE, MEDICAID, SELFPAY ==
[2022-04-24 13:31] LABS: Basophils # 0.1 10^3/uL (0.0-0.1); Eosinophils # 0.3 10^3/uL (0.0-0.8); Eosinophils % 2.8 %; Hematocrit 37.1 % (37.0-47.0); Hemoglobin 12.3 g/dL (11.5-15.3); Lymphocytes # 1.6 10^3/uL (0.8-4.8); Lymphocytes % 17.3 %; Mean Corpuscular HGB Conc 33.2 g/dL (30.0-36.0); Mean Corpuscular Volume 93.5 fl (81-99); Mean Platelet Volume 8.8 fL (7.4-10.4); Monocytes # 0.5 10^3/uL (0.2-0.9); Monocytes % 5.9 %; Neutrophils # 6.66 10^3/uL (1.8-7.7); Neutrophils % 72.6 %; Nucleated Red Blood Cells % 0 %; Platelet Count 400 10^3/cmm (130-400); Red Blood Count 3.97 10^6/uL (4.1-5.3); Red Cell Distribution Width 14.3 % (12.1-15.1); White Blood Count 9.2 10^3/uL (4.0-10.0)
[2022-04-24 13:55] LABS: Albumin Level 4.2 g/dL (3.5-5.2); Anion Gap 18.3 (5-19); Blood Urea Nitrogen 52 mg/dL (6-20); Calcium 10.4 mg/dL (8.5-10.5); Carbon Dioxide 20 mmol/L (22-29); Chloride 104 mmol/L (98-107); Glomerular Filtration Rate 17.2 mL/min (90-130); Glucose 93 mg/dL (65-115); Phosphorus 4.6 mg/dL (2.5-4.5); Potassium 3.3 mmol/L (3.5-5.1); Sodium 139 mmol/L (136-145)
[2022-04-24 13:57] LABS: Creatinine Urine, Random 133 mg/dL (28-217); Microalbumin Random Urine 7 ug/dL (0-20)
[2022-04-24 13:58] LABS: Calcium 10.7 mg/dL (8.5-10.5)
[2022-04-24 14:03] LABS: Microalbum Creatinine Ratio Ur 53 mg/dL (0-20)
[2022-04-24 14:06] LABS: Parathyroid Hormone 72.3 pg/mL (15-65)
== END 2022-04-24 12:48 | disposition home or self-care (01) ==
PROVIDERS: PCP Nurse Practitioner; Visit Provider Registered Nurse
DX: N18.4 Chronic kidney disease, stage 4 (severe) (principal)
CPT/HCPCS: 36415; 80069; 82044; 82310; 83970; 85025

== ENCOUNTER 2022-08-31 10:53 | Outpatient (CLI) | payer MEDICARE, MEDICAID, SELFPAY ==
[2022-08-31 12:27] LABS: Basophils # 0.1 10^3/uL (0.0-0.1); Basophils % 1.3 %; Eosinophils # 0.2 10^3/uL (0.0-0.8); Eosinophils % 2.2 %; Hematocrit 38.3 % (37.0-47.0); Hemoglobin 12.3 g/dL (11.5-15.3); Lymphocytes # 1.9 10^3/uL (0.8-4.8); Lymphocytes % 20.6 %; Mean Corpuscular HGB Conc 32.1 g/dL (30.0-36.0); Mean Corpuscular Hemoglobin 29.9 pg (28.0-34.0); Mean Corpuscular Volume 93.2 fl (81-99); Mean Platelet Volume 9.4 fL (7.4-10.4); Monocytes # 0.6 10^3/uL (0.2-0.9); Neutrophils # 6.46 10^3/uL (1.8-7.7); Neutrophils % 69.7 %; Nucleated Red Blood Cells % 0 %; Platelet Count 344 10^3/cmm (130-400); Red Blood Count 4.11 10^6/uL (4.1-5.3); Red Cell Distribution Width 13.2 % (12.1-15.1); White Blood Count 9.3 10^3/uL (4.0-10.0)
[2022-08-31 12:46] LABS: Creatinine Urine, Random 107 mg/dL (28-217); Microalbumin Random Urine 14 ug/dL (0-20)
[2022-08-31 12:48] LABS: Microalbum Creatinine Ratio Ur 131 mg/dL (0-20)
[2022-08-31 12:53] LABS: Calcium 11.3 mg/dL (8.5-10.5)
[2022-08-31 12:54] LABS: Albumin Level 4.3 g/dL (3.5-5.2); Anion Gap 17.6 (5-19); Blood Urea Nitrogen 58 mg/dL (6-20); Calcium 11.1 mg/dL (8.5-10.5); Carbon Dioxide 24 mmol/L (22-29); Chloride 102 mmol/L (98-107); Glomerular Filtration Rate 18.7 mL/min (90-130); Glucose 89 mg/dL (65-115); Phosphorus 3.8 mg/dL (2.5-4.5); Potassium 4.6 mmol/L (3.5-5.1); Sodium 139 mmol/L (136-145)
[2022-08-31 13:00] LABS: Parathyroid Hormone 62.4 pg/mL (15-65)
== END 2022-08-31 10:54 | disposition home or self-care (01) ==
LOC: RAD 10:57
PROVIDERS: PCP Nurse Practitioner; Visit Provider Nurse Practitioner
DX: N18.4 Chronic kidney disease, stage 4 (severe) (principal)
CPT/HCPCS: 36415; 80069; 82044; 82310; 83970; 85025

== ENCOUNTER → 2023-02-24 09:27 | Outpatient (BNVA) | payer MEDICARE, MEDICAID, SELFPAY | PROVIDERS: PCP Nurse Practitioner; Visit Provider Nurse Practitioner Family | DX: L03.114 Cellulitis of left upper limb (principal); E83.42 Hypomagnesemia; I10 Essential (primary) hypertension; E78.2 Mixed hyperlipidemia; N18.4 Chronic kidney disease, stage 4 (severe) | CPT/HCPCS: 80053; 80061; 82306; 83735; 84443; 85025 ==

== ENCOUNTER → 2023-02-26 11:31 | Outpatient (BNVA) | payer MEDICARE, MEDICAID, SELFPAY | PROVIDERS: PCP Nurse Practitioner; Visit Provider Nurse Practitioner Family | DX: L03.114 Cellulitis of left upper limb (principal); E83.42 Hypomagnesemia; I10 Essential (primary) hypertension; E78.2 Mixed hyperlipidemia; I47.1 Supraventricular tachycardia; B00.9 Herpesviral infection, unspecified; T63.461A Toxic effect of venom of wasps, accidental (unintentional), initial encounter | CPT/HCPCS: 87070; 87075; 87205 ==

== ENCOUNTER → 2023-03-30 10:23 | Outpatient (BNVA) | payer MEDICARE, MEDICAID, SELFPAY | PROVIDERS: PCP Nurse Practitioner Family; Visit Provider Registered Nurse | DX: I10 Essential (primary) hypertension (principal); N18.4 Chronic kidney disease, stage 4 (severe); N39.0 Urinary tract infection, site not specified; R79.89 Other specified abnormal findings of blood chemistry; E04.1 Nontoxic single thyroid nodule | CPT/HCPCS: 80069; 81003; 82043; 82306; 82310; 83970; 84439; 84443; 85025 ==

== ENCOUNTER 2023-04-06 09:59 | Outpatient (CLI) | payer MEDICARE, MEDICAID, SELFPAY ==
[2023-04-06 11:17] LABS: Albumin Level 3.8 g/dL (3.5-5.2); Blood Urea Nitrogen 58 mg/dL (6-20); Calcium 10.1 mg/dL (8.5-10.5); Carbon Dioxide 20 mmol/L (22-29); Chloride 107 mmol/L (98-107); Glomerular Filtration Rate 17.8 mL/min (90-130); Glucose 95 mg/dL (65-115); Phosphorus 3.5 mg/dL (2.5-4.5); Sodium 139 mmol/L (136-145)
[2023-04-06 11:20] LABS: Anion Gap 15.5 (5-19); Calcium 10.3 mg/dL (8.5-10.5); Potassium 3.5 mmol/L (3.5-5.1)
[2023-04-06 11:51] LABS: Parathyroid Hormone 80.6 pg/mL (15-65)
== END 2023-04-06 10:00 | disposition home or self-care (01) ==
LOC: LAB 10:06
PROVIDERS: PCP Nurse Practitioner Family; Visit Provider Nurse Practitioner
DX: E87.6 Hypokalemia (principal); N18.4 Chronic kidney disease, stage 4 (severe); E87.22 Chronic metabolic acidosis; N25.81 Secondary hyperparathyroidism of renal origin
CPT/HCPCS: 36415; 80069; 82310; 83970

== ENCOUNTER → 2023-04-16 10:03 | Outpatient (BNVA) | payer MEDICARE, MEDICAID, SELFPAY | PROVIDERS: PCP Nurse Practitioner Family; Visit Provider Nurse Practitioner Family | DX: R50.9 Fever, unspecified (principal); R53.83 Other fatigue; Z20.822 Contact with and (suspected) exposure to COVID-19 | CPT/HCPCS: 80053; 85025; 86618; 86666; 86757; 87400; 87426 ==

== ENCOUNTER 2023-04-29 11:05 | Emergency (ER) | payer MEDICARE, MEDICAID, SELFPAY ==
[2023-04-29 11:16] VITALS: BP 159/89; PULSE 72; RESP 18; TEMP 36.9; O2SAT 100
--- NOTE | 2023-04-29 11:18 | XR_ITS ---
WS: [id number] Portable AP upright chest, 04/29/2023 Clinical Data: chest pain Comparison: Portable chest, 05/16/2020 Findings: No nodules, masses or effusions are seen. The heart is normal. The pulmonary vascularity is not increased. No pneumonia or pneumothorax is seen. Monitor leads are on the chest wall. Impression: Negative chest.
[2023-04-29 11:19] VITALS: BP 159/89; PULSE 65; RESP 18; TEMP 36.6; O2SAT 100
--- NOTE | 2023-04-29 11:19 | ECG_ITS ---
[facility] Test Date: 2023-04-29 Pat Name: Alexandria Delgado Department: Room: Gender: Female Regional Account Executive: : 1970 Requested By: Nii Capellan Order Number: [id number] Quinton MD: Lisandro Norris M.D. Measurements Intervals [place] Rate: 72 P: 57 [place]: 122 QRS: 48 QRSD: 101 T: 45 QT: 388 QTc: 425 Interpretive Statements SINUS RHYTHM POSSIBLE LEFT ATRIAL ENLARGEMENT [-0.1mV P-WAVE IN V1/V2] INCOMPLETE RIGHT BUNDLE BRANCH BLOCK [90+ ms QRS DURATION, TERMINAL R IN V1/V2, 40+ ms S IN I/aVL/V4/V5/V6] MODERATE ST DEPRESSION [0.05+ mV ST DEPRESSION] Compared to ECG 05/17/2020 09:50:35 Incomplete right bundle-branch block now present ST (T wave) deviation now present Short [place] interval no longer present Electronically Signed On 04-29-2023 14:10:29 CDT by Lisandro Norris M.D. [id number]
[2023-04-29 11:37] VITALS: RESP 18
[2023-04-29] MEDS: aspirin 81 mg Chew Tablet 324 MG PO (11:37)
[2023-04-29] MEDS: ondansetron 2 mg/ML SDV 2 mL 4 MG IVP (11:37)
[2023-04-29 11:44] LABS: Basophils # 0.1 10^3/uL (0.0-0.1); Basophils % 0.5 %; Eosinophils # 0.4 10^3/uL (0.0-0.8); Eosinophils % 3.8 %; Hematocrit 39.8 % (36-47); Lymphocytes % 20.9 %; Mean Corpuscular HGB Conc 30.9 g/dL (30-55); Mean Corpuscular Hemoglobin 30.5 pg (27-33); Mean Corpuscular Volume 98.8 fl (85-98); Monocytes # 0.8 10^3/uL (0.2-0.9); Monocytes % 8.1 %; Neutrophils # 6.29 10^3/uL (1.8-7.7); Neutrophils % 65.9 %; Nucleated Red Blood Cells % 0 %; Platelet Count 249 10^3/cmm (157-399); Red Blood Count 4.03 10^6/uL (3.85-5.65); Red Cell Distribution Width 14.6 % (12.1-15.1); White Blood Count 9.54 10^3/uL (3.29-11.43)
[2023-04-29 11:53] LABS: INR 0.84 (0.8-1.2)
[2023-04-29 11:54] LABS: Partial Thromboplastin Time 26.8 SECONDS (23.9-36.7)
[2023-04-29 11:56] LABS: D Dimer 0.78 ug/mLFEU (0-0.59)
[2023-04-29 12:00] LABS: Troponin(5th) Baseline 25 ng/L (0-10)
[2023-04-29 12:17] LABS: Alanine Aminotransferase 33 U/L (0-33); Albumin Level 3.8 g/dL (3.5-5.2); Alkaline Phosphatase 84 U/L (35-105); Aspartate Amino Transferase 22 U/L (0-32); Blood Urea Nitrogen 43 mg/dL (6-20); Calcium 9.7 mg/dL (8.5-10.5); Carbon Dioxide 15 mmol/L (22-29); Chloride 108 mmol/L (98-107); Globulin 2.1 g/dL (1.3-4.6); Glomerular Filtration Rate 21.3 mL/min (90-130); Glucose 94 mg/dL (65-115); NT Pro B Type Natriuretic Pept 196 pg/mL (0-125); Osmolality Calculated 297 mOsm/kg (285-295); Sodium 138 mmol/L (136-145); Total Bilirubin 0.2 mg/dL (0.15-1.2); Total Protein 5.9 g/dL (6.6-8.7)
[2023-04-29 12:20] LABS: Anion Gap 19.5 (5-19); Potassium 4.5 mmol/L (3.5-5.1)
[2023-04-29] MEDS: nitroglycerin 0.4 mg sublingual Tablet SUBLINGUAL (12:38)
--- NOTE | 2023-04-29 12:48 | PC.PHAR ---
PT STATES SHE TAKES CARE OF HER OWN MEDICATIONS-PT STATES SHE FINISHED HER ZPAC ON Wed04/26/23 (RX FILLED ON 04/21/23 5D/S) AND DOXYCYCLINE HYCLATE 100MG BID ON Wed04/26/23 (RX FILLED ON 04/16/23 10D/S)-PT STATES SHE HAS BEEN TAKING METOPROLOL SUCCINATE ER 25MG BID FOR THE PAST 2 WEEKS RX FILLED FOR 04/25/23 30D/S 25MG DAILY-NOTES ARE MADE IN THE PHARMACY COMMENTS
[2023-04-29 13:37] LABS: Troponin 5 2HR 23.62 ng/L (0-10)
[2023-04-29 13:39] LABS: Troponin 5 2HR Delta -1.38 ABS# (0-10)
--- NOTE | 2023-04-29 13:45 | ECG_ITS ---
[facility] Test Date: 2023-04-29 Pat Name: Alexandria Delgado Department: Room: Gender: Female National Sales Manager: : 1970 Requested By: Nii Capellan Order Number: [id number] Quinton MD: Lisandro Norris M.D. Measurements Intervals [place] Rate: 56 P: 50 NM: 126 QRS: 46 QRSD: 98 T: 42 QT: 402 QTc: 391 Interpretive Statements SINUS BRADYCARDIA POSSIBLE LEFT ATRIAL ENLARGEMENT [-0.1mV P-WAVE IN V1/V2] POSSIBLE RIGHT VENTRICULAR CONDUCTION DELAY [RSR (QR) IN V1/V2] MODERATE ST DEPRESSION [0.05+ mV ST DEPRESSION] Compared to ECG 04/29/2023 11:10:25 Sinus rhythm no longer present Incomplete right bundle-branch block no longer present ST (T wave) deviation still present Electronically Signed On 04-29-2023 14:10:48 CDT by Lisandro Norris M.D. [id number]
[2023-04-29] MEDS: lidocaine 2% viscous 15 ML, aluminum-mag hydrox-simethicon 30 ML, sucralfate oral liq 1 GM PO (13:57)
[2023-04-29 13:58] VITALS: BP 132/76; PULSE 62; O2SAT 100
--- NOTE | 2023-04-29 14:25 | W.ED.CHESTPA ---
HPI - Chest Pain General: Chief Complaint: Chest Pain Stated Complaint: chest pain Time Seen by Provider: 04/29/23 11:06 History of Present Illness: This patient is a 52-year-old white female who presents to the emergency department complaining of chest discomfort. Patient states she was diagnosed with COVID last week. She also has stage IV kidney disease. She developed chest pain/pressure today. She is having some mild shortness of breath and some lightheadedness. Cough and fever have resolved. Review of Systems General: Reports: 10 or more systems reviewed and unremarkable except in HPI and below PFSH ED PFSH: Medical History Abnormal nuclear stress test Atypical chest pain Chronic hypokalemia Chronic iron deficiency anemia Chronic nonspecific colitis CKD (chronic kidney disease) stage 4, GFR 15-29 ml/min Gastric reflux Gastritis, hiatal hernia per patient Gout, unspecified Herpes simplex virus (HSV) infection History of Clostridioides difficile colitis History of gastritis Hyperparathyroidism , secondary, non-renal IBS (irritable bowel syndrome) Mixed hyperlipidemia Slow transit constipation Thyroid nodule Surgical History History of section History of cholecystectomy History of endometrial ablation History of parathyroidectomy History of tonsillectomy History of tubal ligation History of vascular surgery bilat arms Family History Grandfather CAD (coronary artery disease) Has some heart problems. Details are not available. Other Diabetes Hyperlipidemia Hypertension Social History Smoking and tobacco status: never smoked Second hand smoke exposure: No Smoking risk assessment/counseling performed?: No Alcohol intake: unknown Desire information about alcohol rehabilitation?: No Counseling given: No Substance/Drug Use: never Desire information about substance/drug rehabilitation?: No Counseling given: No Adopted: No Caregiver/support person: No Lives independently: Yes Household members: significant other Housing: House Marital status: Number of children: 3 service: No Current occupational status: disabled Do you think of yourself as: Straight/Heterosexual Current gender identity: Female Physical Exam Const: COMMON NORMALS: no acute distress, patient oriented x3 and no limitations GENERAL APPEARANCE: cooperative and comfortable HENMT: COMMON NORMALS: normocephalic, atraumatic, Normal nasal mucous membranes and turbinates present, moist oral mucous membranes and oropharynx normal HEAD & SCALP: normal to inspection, normocephalic and atraumatic FACE & SINUS: normal facial exam NOSE: Normal nasal mucous membranes and turbinates present Eye: COMMON NORMALS: Equal, round and reactive pupils present, EOMs intact bilaterally and conjunctivae normal GENERAL EYE: appearance normal, both eyes and all related structures CONJUNCTIVA: Yes conjunctivae normal PUPIL: Yes Equal, round and reactive pupils present Neck/C-Spine: COMMON NORMALS: supple and no JVD Chest: COMMONS NORMALS: normal inspection of the chest Resp: COMMON NORMALS: normal respiratory effort and clear to auscultation bilaterally AUSCULTATION: clear to auscultation bilaterally Cardio: COMMON NORMALS: no JVD, regular rate, regular rhythm, No gallops present (Cardio), No murmurs present (Cardio) and No rub (Cardio) RATE: regular rate RHYTHM: regular rhythm GI: COMMON NORMALS: Normal to inspection, nondistended, normoactive bowel sounds present, Soft to palpation and non-tender AUSCULTATION: Yes normoactive bowel sounds PALPATION: Yes Soft to palpation : COMMON NORMALS: Yes no CVA tenderness BLADDER/KIDNEY EXAM: Yes no CVA tenderness Back/Pelvis: COMMON NORMALS: no CVA tenderness and thoracic and lumbar spine normal to inspection Extremity: COMMON NORMALS: normal to inspection Neuro: COMMON NORMALS: patient oriented x3 and CN's II-XII intact bilaterally Psych: COMMON NORMALS: mental status grossly normal, Normal thought process present and cooperative THOUGHT PROCESS: Normal thought process present Skin: COMMON NORMALS: no rashes or lesions noted, turgor normal and no jaundice GENERAL SKIN EXAM: no rashes or lesions noted and turgor normal Course Vital Signs: Vital signs: Vital Signs Temperature 98 F 04/29/23 11:19 Pulse Rate 62 04/29/23 13:58 Respiratory Rate 18 04/29/23 11:37 Blood Pressure 132/76 04/29/23 13:58 Pulse Oximetry 100 04/29/23 13:58 Oxygen Delivery Me thod Room Air 04/29/23 13:58 MDM - Chest Pain Medical Decision Making CBC was normal. CMP reveals a BUN of 43 creatinine of 2.4 D-dimer was slightly elevated at 0.78. Baseline troponin was 25 with a 2-hour level of 23.6. BNP was 196. EKG did not reveal any significant ST segment abnormalities. Chest x-ray was normal. Patient was initially given 2 mg of morphine IV. This did not seem to help much. We tried a GI cocktail which made no difference. We then gave her a sublingual nitroglycerin tablet which she states made it worse initially but then eventually when her headache went away she states the chest pain resolved. I do not think a CT angiogram to rule out PE is indicated at this time. Her D-dimer is less than 1. She does have chronic renal insufficiency with a creatinine of 2.4 and I do not want to risk giving her the IV contrast since I think PE is very unlikely based on her symptoms. She is not having any pleuritic chest pain. She does have nitroglycerin at home which she can take as needed. I did prescribe a short supply of hydrocodone to be used as needed. I recommended she follow-up with her primary care physician next week for recheck. She was discharged in stable condition. Lab Data 04/29/23 11:35 04/29/23 11:35 Laboratory Results WBC 9.54 10^3/uL (3.29-11.43) 04/29/23 11:35 RBC 4.03 10^6/uL (3.85-5.65) 04/29/23 11:35 Hgb 12.30 g/dL (11.27-16.99) 04/29/23 11:35 Hct 39.8 % (36-47) 04/29/23 11:35 MCV 98.8 fl (85-98) H 04/29/23 11:35 MCH 30.5 pg (27-33) 04/29/23 11:35 MCHC 30.9 g/dL (30-55) 04/29/23 11:35 RDW 14.6 % (12.1-15.1) 04/29/23 11:35 Plt Count 249 10^3/cmm (157-399) 04/29/23 11:35 MPV 9.0 fL (7.4-10.4) 04/29/23 11:35 Neut % (Auto) 65.9 % 04/29/23 11:35 Lymph % (Auto) 20.9 % 04/29/23 11:35 [place] % (Auto) 8.1 % 04/29/23 11:35 Eos % (Auto) 3.8 % 04/29/23 11:35 Baso % (Auto) 0.5 % 04/29/23 11:35 Neut # (Auto) 6.29 10^3/uL (1.8-7.7) 04/29/23 11:35 Lymph # (Auto) 2.0 10^3/uL (0.8-4.8) 04/29/23 11:35 [place] # (Auto) 0.8 10^3/uL (0.2-0.9) 04/29/23 11:35 Eos # (Auto) 0.4 10^3/uL (0.0-0.8) 04/29/23 11:35 Baso # (Auto) 0.1 10^3/uL (0.0-0.1) 04/29/23 11:35 Nucleated RBC % (auto) 0 % 04/29/23 11:35 Nucleated RBCs # 0.0 /100WBC 04/29/23 11:35 PT 11.80 SECONDS (12.1-14.9) L 04/29/23 11:35 INR 0.84 (0.8-1.2) 04/29/23 11:35 APTT 26.8 SECONDS (23.9-36.7) 04/29/23 11:35 D-Dimer 0.78 ug/mLFEU (0-0.59) H 04/29/23 11:35 Sodium 138 mmol/L (136-145) 04/29/23 11:35 Potassium 4.5 mmol/L (3.5-5.1) 04/29/23 11:35 Chloride 108 mmol/L (98-107) H 04/29/23 11:35 Carbon Dioxide 15 mmol/L (22-29) L 04/29/23 11:35 Anion Gap 19.5 (5-19) H 04/29/23 11:35 BUN 43 mg/dL (6-20) H 04/29/23 11:35 Creatinine 2.4 mg/dL (0.5-0.9) H 04/29/23 11:35 GFR Calculation 21.3 mL/min (90-130) L 04/29/23 11:35 Glucose 94 mg/dL (65-115) 04/29/23 11:35 Calculated Osmolality 297 mOsm/kg (285-295) H 04/29/23 11:35 Calcium 9.7 mg/dL (8.5-10.5) 04/29/23 11:35 Total Bilirubin 0.2 mg/dL (0.15-1.2) 04/29/23 11:35 AST 22 U/L (0-32) 04/29/23 11:35 ALT 33 U/L (0-33) 04/29/23 11:35 Alkaline Phosphatase 84 U/L (35-105) 04/29/23 11:35 Troponin T Baseline 25 ng/L (0-10) H 04/29/23 11:35 Troponin T 120 Minute 23.62 ng/L (0-10) H 04/29/23 13:13 Delta Troponin T -1.38 ABS# (0-10) L 04/29/23 13:13 NT-Pro-B Natriuret Pep 196 pg/mL (0-125) H 04/29/23 11:35 Total Protein 5.9 g/dL (6.6-8.7) L 04/29/23 11:35 Albumin 3.8 g/dL (3.5-5.2) 04/29/23 11:35 Globulin 2.1 g/dL (1.3-4.6) 04/29/23 11:35 All radiology interpretation(s) finalized by discharge Discharge Plan Discharge Patient Disposition: Home Clinical Impression: Chest pain Condition: Stable Prescriptions: New hydrocodone-acetaminophen 5-325 mg tablet 1 tab PO Q4H PRN (Reason: pain) Qty: 20 0RF No Action potassium chloride 20 mEq tablet,ER particles/crystals 40 meq PO BID tamsulosin 0.4 mg capsule 0.4 mg PO DAILY PRN (Reason: kidney stones) atorvastatin 10 mg tablet 10 mg PO QPM Qty: 30 2RF acyclovir 800 mg tablet 800 mg PO DAILY PRN (Reason: for cold sore) Qty: 30 2RF albuterol sulfate 2.5 mg /3 mL (0.083 %) solution for nebulization 2.5 mg inhalation QID PRN (Reason: shortness of breath or wheezing) Qty: 180 0RF sodium bicarbonate 650 mg Tablet 1,300 mg PO BID nitroglycerin 0.4 mg tablet, sublingual 0.4 mg SUBLINGUAL Q5M PRN (Reason: chest pain) Qty: 25 0RF Rx Instructions: do not exceed 3 doses per episode albuterol sulfate 90 mcg/actuation HFA aerosol inhaler 2 puff INHALATION Q6H PRN (Reason: Shortness Of Breath) hydroxyzine HCl 10 mg tablet 10 mg PO BEDTIME temazepam 30 mg capsule 30 mg PO BEDTIME Tylenol Ex Str Rapid Release 500 mg Tablet 1,000 mg PO Q6H PRN (Reason: Pain) betamethasone dipropionate 0.05 % ointment See Rx Instructions .ROUTE .COMPLEX Rx Instructions: APPLY TO RASH TWICE DAILY UNTIL CLEAR, THEN NEEDED guaifenesin 400 mg Tablet 400 mg PO Q4H PRN (Reason: Congestion) Vitamin D3 125 mcg (5,000 unit) Tablet 5,000 unit PO Q7D Rx Instructions: ON WED metoprolol succinate 25 mg tablet extended release 24 hr 25 mg PO BID Discharge Orders: Discharge ED (Routine); Ordered 04/29/23 Ordered By: Nii Capellan Referrals: Shraddha Parra FNP [Primary Care Provider] - Patient Instructions: Opioid Safety, Pain Management Coding Level of Care Code ED Financial Agent for Alejandro Kwong
[2023-04-29 15:01] VITALS: BP 123/95; PULSE 60; O2SAT 100
== END 2023-04-29 15:02 | disposition home or self-care (01) ==
PROVIDERS: Emergency Provider Emergency Medicine; PCP Nurse Practitioner Family
DX: R07.9 Chest pain, unspecified (principal); N18.4 Chronic kidney disease, stage 4 (severe); E78.2 Mixed hyperlipidemia
CPT/HCPCS: 36415; 71045; 80053; 83880; 84484; 85025; 85378; 85610; 85730; 93005; 96374; 96375; 99285; J2270; J2405

== ENCOUNTER → 2023-06-08 09:36 | Outpatient (BNVA) | payer MEDICARE, MEDICAID, SELFPAY | PROVIDERS: PCP Nurse Practitioner Family; Visit Provider Nurse Practitioner Family | DX: R20.2 Paresthesia of skin (principal); E04.1 Nontoxic single thyroid nodule; I10 Essential (primary) hypertension; Z79.899 Other long term (current) drug therapy | CPT/HCPCS: 80053; 80061; 84439; 84443; 85025 ==

== ENCOUNTER 2023-07-14 09:28 | Outpatient (RCR) | payer MEDICARE, MEDICAID, SELFPAY | END 2023-08-01 23:59 | disposition home or self-care (01) | LOC: SOT 09:28 | PROVIDERS: PCP Nurse Practitioner Family; Visit Provider Nurse Practitioner Family | DX: R20.2 Paresthesia of skin (principal) | CPT/HCPCS: 97110; 97166; 97530 ==

== ENCOUNTER 2023-08-02 06:00 | Outpatient (RCR) | payer MEDICARE, MEDICAID, SELFPAY | END 2023-09-01 23:59 | disposition home or self-care (01) | LOC: SOT 06:00 | PROVIDERS: PCP Nurse Practitioner Family; Visit Provider Nurse Practitioner Family | DX: R20.2 Paresthesia of skin (principal) | CPT/HCPCS: 97110; 97165 ==

== ENCOUNTER 2023-12-20 09:13 | Outpatient (CLI) | payer MEDICARE, MEDICAID, SELFPAY ==
[2023-12-20 09:47] LABS: Basophils # 0.1 10^3/uL (0.0-0.1); Eosinophils # 0.1 10^3/uL (0.0-0.8); Eosinophils % 0.7 %; Hematocrit 39.2 % (36-47); Lymphocytes # 1.4 10^3/uL (0.8-4.8); Mean Corpuscular HGB Conc 32.1 g/dL (30-55); Mean Corpuscular Hemoglobin 30.7 pg (27-33); Mean Corpuscular Volume 95.6 fl (85-98); Mean Platelet Volume 9.2 fL (7.4-10.4); Monocytes # 0.5 10^3/uL (0.2-0.9); Monocytes % 4.9 %; Neutrophils # 8.52 10^3/uL (1.8-7.7); Neutrophils % 79.9 %; Nucleated Red Blood Cells % 0 %; Platelet Count 307 10^3/cmm (157-399); Red Cell Distribution Width 13.8 % (12.1-15.1); White Blood Count 10.65 10^3/uL (3.29-11.43)
[2023-12-20 10:09] LABS: Urine Creatinine 137 mg/dL (28-217)
[2023-12-20 10:10] LABS: Urine Protein Random 55 mg/dL
[2023-12-20 10:15] LABS: Anion Gap 18.4 (5-19); Blood Urea Nitrogen 48 mg/dL (6-20); Calcium 9.7 mg/dL (8.5-10.5); Carbon Dioxide 23 mmol/L (22-29); Chloride 100 mmol/L (98-107); Glomerular Filtration Rate 15.8 mL/min (90-130); Glucose 136 mg/dL (65-115); Phosphorus 5.2 mg/dL (2.5-4.5); Potassium 3.4 mmol/L (3.5-5.1); Sodium 138 mmol/L (136-145)
[2023-12-20 10:35] LABS: Calcium 9.6 mg/dL (8.5-10.5)
[2023-12-20 10:43] LABS: Parathyroid Hormone 299.3 pg/mL (15-65)
== END 2023-12-20 09:14 | disposition home or self-care (01) ==
LOC: LAB 09:17
PROVIDERS: PCP Nurse Practitioner Family; Visit Provider Nurse Practitioner
DX: D63.1 Anemia in chronic kidney disease (principal); N18.4 Chronic kidney disease, stage 4 (severe); I10 Essential (primary) hypertension; Z86.39 Personal history of other endocrine, nutritional and metabolic disease; E87.1 Hypo-osmolality and hyponatremia
CPT/HCPCS: 36415; 80069; 82310; 82570; 83970; 84156; 85025

== ENCOUNTER → 2024-01-17 11:04 | Outpatient (BNVA) | payer MEDICARE, MEDICAID, SELFPAY | PROVIDERS: PCP Nurse Practitioner Family; Visit Provider Nurse Practitioner Family | DX: N18.4 Chronic kidney disease, stage 4 (severe) (principal); Z79.899 Other long term (current) drug therapy | CPT/HCPCS: 80069; 82310; 82570; 83970; 84156; 85025 ==

== ENCOUNTER → 2024-04-10 10:44 | Outpatient (BNVA) | payer MEDICARE, MEDICAID, SELFPAY | PROVIDERS: PCP Nurse Practitioner Family; Visit Provider Nurse Practitioner Family | DX: I10 Essential (primary) hypertension (principal); I47.19 Other supraventricular tachycardia | CPT/HCPCS: 80053; 80061; 80069; 82310; 83970; 84443; 85025 ==

== ENCOUNTER 2024-05-22 09:37 | Outpatient (CLI) | payer MEDICARE, MEDICAID, SELFPAY ==
[2024-05-22 10:20] LABS: Basophils # 0.1 10^3/uL (0.0-0.1); Eosinophils # 0.2 10^3/uL (0.0-0.8); Eosinophils % 2.3 %; Hematocrit 39.9 % (36-47); Lymphocytes # 1.7 10^3/uL (0.8-4.8); Lymphocytes % 17.5 %; Mean Corpuscular HGB Conc 31.8 g/dL (30-55); Mean Corpuscular Hemoglobin 29.2 pg (27-33); Mean Corpuscular Volume 91.7 fl (85-98); Mean Platelet Volume 9.2 fL (7.4-10.4); Monocytes # 0.6 10^3/uL (0.2-0.9); Monocytes % 6.5 %; Neutrophils # 6.96 10^3/uL (1.8-7.7); Neutrophils % 72.4 %; Nucleated Red Blood Cells % 0 %; Platelet Count 331 10^3/cmm (157-399); Red Blood Count 4.35 10^6/uL (3.85-5.65); Red Cell Distribution Width 13.6 % (12.1-15.1); White Blood Count 9.62 10^3/uL (3.29-11.43)
[2024-05-22 10:34] LABS: Albumin Level 4.3 g/dL (3.5-5.2); Anion Gap 17.6 (5-19); Blood Urea Nitrogen 48 mg/dL (6-20); Calcium 9.7 mg/dL (8.5-10.5); Carbon Dioxide 22 mmol/L (22-29); Chloride 103 mmol/L (98-107); Glomerular Filtration Rate 14.2 mL/min (90-130); Glucose 87 mg/dL (65-115); Phosphorus 4.9 mg/dL (2.5-4.5); Potassium 3.6 mmol/L (3.5-5.1); Sodium 139 mmol/L (136-145)
[2024-05-22 10:37] LABS: Calcium 9.9 mg/dL (8.5-10.5)
[2024-05-22 10:42] LABS: Parathyroid Hormone 334.9 pg/mL (15-65)
[2024-05-22 10:44] LABS: Urine Creatinine 139 mg/dL (28-217)
[2024-05-22 10:50] LABS: 25 Hydroxy Vitamin D 22 ng/mL (30-100)
[2024-05-22 10:50] LABS: UPRO/UCREAT Ratio 0.24 mg/mg CR; Urine Protein Random 33 mg/dL
== END 2024-05-22 09:38 | disposition home or self-care (01) ==
PROVIDERS: PCP Nurse Practitioner Family; Visit Provider Nurse Practitioner
DX: N25.81 Secondary hyperparathyroidism of renal origin (principal); N18.4 Chronic kidney disease, stage 4 (severe); E55.9 Vitamin D deficiency, unspecified; E87.1 Hypo-osmolality and hyponatremia; D63.1 Anemia in chronic kidney disease
CPT/HCPCS: 36415; 80069; 82306; 82310; 82570; 83970; 84156; 85025

== ENCOUNTER → 2024-10-17 10:57 | Outpatient (BNVA) | payer MEDICARE, MEDICAID, SELFPAY | PROVIDERS: PCP Nurse Practitioner Family; Visit Provider Nurse Practitioner Family | DX: N18.4 Chronic kidney disease, stage 4 (severe) (principal); B00.9 Herpesviral infection, unspecified; I10 Essential (primary) hypertension; R53.83 Other fatigue; F32.A Depression, unspecified | CPT/HCPCS: 80053; 80061; 80069; 82306; 82310; 82575; 82607; 83970; 84156; 85025 ==

== ENCOUNTER 2024-11-06 09:11 | Emergency (ER) | payer MEDICARE, MEDICAID, SELFPAY ==
[2024-11-06 09:17] VITALS: BP 169/97; PULSE 95; RESP 19; TEMP 36.7; O2SAT 99; BMI 28.3
--- NOTE | 2024-11-06 09:20 | ECG_ITS ---
[facility] Test Date: 2024-11-06 Pat Name: Alexandria Delgado Department: Room: Gender: Female Radio Program Checker: : 1970 Requested By: Gary Ruffin Order Number: [id number] Quinton MD: Lisandro Norris M.D. Measurements Intervals [place] Rate: 72 P: 41 IN: 117 QRS: 15 QRSD: 98 T: 29 QT: 368 QTc: 404 Interpretive Statements SINUS RHYTHM WITH SHORT IN INTERVAL LOW QRS VOLTAGE IN PRECORDIAL LEADS [QRS DEFLECTION < 1.0 mV IN CHEST LEADS] Compared to ECG 04/29/2023 13:45:41 Short IN interval now present Low QRS voltage now present Sinus bradycardia no longer present ST (T wave) deviation no longer present Electronically Signed On 11-06-2024 22:25:01 CDT by Lisandro Norris M.D. [id number] [id number]
[2024-11-06 10:05] LABS: Basophils # 0.1 10^3/uL (0.0-0.1); Basophils % 0.5 %; Eosinophils # 0.2 10^3/uL (0.0-0.8); Eosinophils % 1.8 %; Hematocrit 36.9 % (36-47); Lymphocytes # 1.5 10^3/uL (0.8-4.8); Mean Corpuscular HGB Conc 30.9 g/dL (30-55); Mean Corpuscular Hemoglobin 29.6 pg (27-33); Mean Corpuscular Volume 95.8 fl (85-98); Mean Platelet Volume 9.3 fL (7.4-10.4); Monocytes # 0.6 10^3/uL (0.2-0.9); Neutrophils # 7.08 10^3/uL (1.8-7.7); Neutrophils % 75.2 %; Nucleated Red Blood Cells % 0 %; Platelet Count 251 10^3/cmm (157-399); Red Blood Count 3.85 10^6/uL (3.85-5.65); Red Cell Distribution Width 13.7 % (12.1-15.1); White Blood Count 9.43 10^3/uL (3.29-11.43)
[2024-11-06 10:25] LABS: Troponin(5th) Baseline 46 ng/L (0-10)
[2024-11-06 10:30] LABS: Alanine Aminotransferase 18 U/L (0-33); Albumin Level 3.9 g/dL (3.5-5.2); Alkaline Phosphatase 89 U/L (35-105); Anion Gap 16.4 (5-19); Aspartate Amino Transferase 24 U/L (0-32); Blood Urea Nitrogen 34 mg/dL (6-20); Calcium 8.7 mg/dL (8.5-10.5); Carbon Dioxide 22 mmol/L (22-29); Chloride 110 mmol/L (98-107); Creatinine Clr Calc Pharmacy 19.0874; Glomerular Filtration Rate 13.7 mL/min (90-130); Glucose 83 mg/dL (65-115); Osmolality Calculated 303 mOsm/kg (285-295); Potassium 5.4 mmol/L (3.5-5.1); Sodium 143 mmol/L (136-145); Total Bilirubin 0.2 mg/dL (0.15-1.2); Total Protein 5.9 g/dL (6.6-8.7)
[2024-11-06 10:31] LABS: Calcium 8.6 mg/dL (8.5-10.5)
[2024-11-06 10:39] LABS: Parathyroid Hormone 9.8 pg/mL (15-65)
--- NOTE | 2024-11-06 11:22 | ECG_ITS ---
[facility] Test Date: 2024-11-06 Pat Name: Alexandria Delgado Department: Room: Gender: Female Clinical Team Manager: : 1970 Requested By: Gary Ruffin Order Number: [id number] Quinton MD: Lisandro Norris M.D. Measurements Intervals [place] Rate: 67 P: 36 MO: 119 QRS: 16 QRSD: 97 T: 21 QT: 396 QTc: 418 Interpretive Statements SINUS RHYTHM WITH SHORT MO INTERVAL Compared to ECG 11/06/2024 09:24:05 No significant changes Electronically Signed On 11-06-2024 22:28:37 CDT by Lisandro Norris M.D. [id number]
[2024-11-06] MEDS: sodium chloride 0.9% 1,000 ML 999 ML IV (11:26)
--- NOTE | 2024-11-06 11:33 | ED_ITS ---
HPI - Recheck/Abnormal Lab/Rx 2 General: Chief Complaint: Recheck/Abnormal Lab/Rx Stated Complaint: feels off, shakey Time Seen by Provider: 11/06/24 09:18 History of Present Illness: 54-year-old female presents emergency ro om complaining of feeling off. She states she feels very shaky muscle cramping. Patient recently underwent parathyroidectomy. Evidently this has been done in stages and they reimplanted some of her parathyroid intra-abdominal wall recently. She states over the weekend she felt shaky she is concerned her calcium may be low they had advised her of this with the time of discharge at [place]. She took several Tums tablets yesterday. She is extremely anxious at this time. She has a history of kidney disease as well. Related Data Home Medications ?Medication ?Instructions ?Recorded ?Confirmed ergocalciferol (vitamin D2) 1,250 1,250 mcg PO Q7D 02/2311/06/24 mcg (50,000 unit) capsule escitalopram oxalate 20 mg tablet 20 mg PO DAILY 11/0611/06/24 oxycodone 5 mg tablet 5 mg PO QID 11/06/24 5 potassium chloride 20 mEq 40 meq PO BID 11/06/2411/06 tablet,extended release(part/cryst) sodium bicarbonate 650 mg tablet 1,300 mg PO BID 11/0611/06/24 tamsulosin 0.4 mg capsule 0.4 mg PO DAILY 11/06/2402/23 Previous Rx's ?Medication ?Instructions ?Recorded atorvastatin 10 mg tablet 10 mg PO QPM #90 tabs metoprolol succinate 25 mg 25 mg PO BID #180 tabs 10/01 11/24 tablet,extended release 24 hr temazepam 30 mg capsule 30 mg PO .HS #30 caps calcitriol 0.25 mcg capsule 0.25 mcg PO DAILY #30 caps 11/06/24 Allergies Allergy/AdvReac Type Severity Reaction Status Date / Time clindamycin Allergy Unknown ALGY-Rash Verified 10/23/24 10:14 diphenhydramine (From Allergy Unknown Unknown Verified 10/23/24 10:14 Benadryl) ferumoxytol (From Feraheme) Allergy Unknown Unknown Verified 10/23/24 10:14 flurbiprofen (From Ansaid) Allergy Unknown Unknown Verified 10/23/24 10:14 Review of Systems 2 Const: Denies: fever(s) or chills Card: Denies: chest pain Resp: Denies: dyspnea GI: Denies: abdominal pain : Denies: dysuria, urinary frequency or urinary urgency Musc: Reports: muscle cramps; Denies: neck pain or back pain Skin/Breast: Denies: rash PFSH ED 2 PFSH: Medical History Abnormal nuclear stress test Atypical chest pain Hyperparathyroidism , secondary, non-renal History of gastritis Thyroid nodule Chronic nonspecific colitis History of Clostridioides difficile colitis Chronic hypokalemia Chronic iron deficiency anemia Herpes simplex virus (HSV) infection CKD (chronic kidney disease) stage 4, GFR 15-29 ml/min Gastric reflux Gastritis, hiatal hernia per patient IBS (irritable bowel syndrome) Slow transit constipation Mixed hyperlipidemia Gout, unspecified Surgical History History of vascular surgery bilat arms History of endometrial ablation History of tubal ligation History of parathyroidectomy History of cholecystectomy History of tonsillectomy History of section Family History Grandfather CAD (coronary artery disease) Has some heart problems. Details are not available. Other Diabetes Hyperlipidemia Hypertension Social History Smoking and tobacco/nicotine status: former use of tobacco/nicotine Second hand smoke exposure: No Alcohol intake: unknown Substance/Drug Use: never Adopted: No Caregiver/support person: No Lives independently: Yes Household members: significant other Housing: House Marital status: Number of children: 3 service: No Current occupational status: disabled Do you think of yourself as: Straight/Heterosexual Current gender identity: Female Physical Exam 2 Const: GENERAL APPEARANCE: cooperative ORIENTATION/CONSCIOUSNESS: Yes awake, Yes oriented to person, Yes oriented to place and Yes oriented to time HENMT: COMMON NORMALS: normocephalic, atraumatic and hearing grossly normal bilaterally HEAD & SCALP: normocephalic and atraumatic Resp: COMMON NORMALS: normal respiratory effort, No retractions, No use of accessory muscles and clear to auscultation bilaterally AUSCULTATION: clear to auscultation bilaterally Cardio: COMMON NORMALS: regular rate, regular rhythm and No murmurs present (Cardio) RATE: regular rate RHYTHM: regular rhythm GI: COMMON NORMALS: Soft to palpation and No hepatosplenomegaly present A USCULTATION: Yes normoactive bowel sounds PALPATION: Yes Soft to palpation, No Tenderness to palpation present (GI), No Guarding due to palpation present (GI) and Yes No hepatosplenomegaly present Extremity: COMMON NORMALS: normal to inspection, capillary refill normal, no clubbing, cyanosis or edema, no calf tenderness and no pedal edema Neuro: SENSORIUM/ORIENTATION: Yes oriented to person, Yes oriented to place and Yes oriented to time Skin: COMMON NORMALS: no rashes or lesions noted GENERAL SKIN EXAM: no rashes or lesions noted Course 2 Vital Signs: Vital signs: Vital Signs Temperature 98.1 F 11/06/24 09:17 Pulse Rate 64 11/06/24 14:40 Respiratory Rate 19 H 11/06/24 09:17 Blood Pressure 123/71 11/06/24 14:40 Pulse Oximetry 96 11/06/24 14:40 Oxygen Delivery Me thod Room Air 11/06/24 09:17 MDM - Recheck/Abnormal Lab/Rx Medical Decision Making Patient is feeling much better. We contacted their surgeon from [place]. He recommends changing her to Calcitrol 0.25 mcg daily until they follow-up with her next week. Reviewed findings with the patient she is feeling much better after IV fluids. She had some mild hyperkalemia which was treated with calcium chloride. She has chronic kidney dysfunction which is approximately at her baseline. Return if she has further problems. Medical Records I reviewed the patient's medical records. Lab Data I reviewed the patient's lab results. 11/06/24 09:57 11/06/24 09:57 Laboratory Results WBC 9.43 10^3/uL (3.29-11.43) 11/06/24 09:57 RBC 3.85 10^6/uL (3.85-5.65) 11/06/24 09:57 Hgb 11.40 g/dL (11.27-16.99) 11/06/24 09:57 Hct 36.9 % (36-47) 11/06/24 09:57 MCV 95.8 fl (85-98) 11/06/24 09:57 MCH 29.6 pg (27-33) 11/06/24 09:57 MCHC 30.9 g/dL (30-55) 11/06/24 09:57 RDW 13.7 % (12.1-15.1) 11/06/24 09:57 Plt Count 251 10^3/cmm (157-399) 11/06/24 09:57 MPV 9.3 fL (7.4-10.4) 11/06/24 09:57 Neut % (Auto) 75.2 % 11/06/24 09:57 Lymph % (Auto) 16.0 % 11/06/24 09:57 [place] % (Auto) 6.0 % 11/06/24 09:57 Eos % (Auto) 1.8 % 11/06/24 09:57 Baso % (Auto) 0.5 % 11/06/24 09:57 Neut # (Auto) 7.08 10^3/uL (1.8-7.7) 11/06/24 09:57 Lymph # (Auto) 1.5 10^3/uL (0.8-4.8) 11/06/24 09:57 [place] # (Auto) 0.6 10^3/uL (0.2-0.9) 11/06/24 09:57 Eos # (Auto) 0.2 10^3/uL (0.0-0.8) 11/06/24 09:57 Baso # (Auto) 0.1 10^3/uL (0.0-0.1) 11/06/24 09:57 Nucleated RBC % (auto) 0 % 11/06/24 09:57 Nucleated RBCs # 0.0 /100WBC 11/06/24 09:57 Specimen Type Arterial 11/06/24 11:52 Sample Site Radial, right 11/06/24 11:52 ABG pH 7.39 (7.35-7.45) 11/06/24 11:52 ABG pCO2 31.3 mmHg (35-45) L 11/06/24 11:52 ABG pO2 78.7 mmHg (80.0-100.0) L 11/06/24 11:52 ABG PO2/FiO2 Ratio 374 11/06/24 11:52 ABG HCO3 18.8 mmol/L (22-26) L 11/06/24 11:52 ABG O2 Saturation 97.5 11/06/24 11:52 ABG Base Excess -5.2 mmol/L (-2.0-2.0) L 11/06/24 11:52 Juliocesar Test Pos 11/06/24 11:52 A-a O2 Gradient 4.1 mmHg (5-10) L 11/06/24 11:52 Hematocrit 35.0 % (37-47) L 11/06/24 11:52 Hgb O2 Saturation 96.3 % (95-100) 11/06/24 11:52 Carboxyhemoglobin 0.9 %THgb (0.4-20.1) 11/06/24 11:52 Methemoglobin 0.3 % (0.4-1.5) L 11/06/24 11:52 Total Hemoglobin 11.4 g/dL (12-16) L 11/06/24 11:52 Sodium 144.0 mmol/L (131-143) H 11/06/24 11:52 Potassium 5.1 mmol/L (3.5-5.0) H 11/06/24 11:52 Glucose 79.0 mg/dL (70-115) 11/06/24 11:52 Ionized Calcium 1.1 mmol/L (1.1-1.4) 11/06/24 11:52 O2 Delivery Device Room air 11/06/24 11:52 FiO2 21.0 % 11/06/24 11:52 Certified Flex Endoscope Reprocessor ID glc 11/06/24 11:52 Sodium 143 mmol/L (136-145) 11/06/24 09:57 Potassium 5.4 mmol/L (3.5-5.1) H 11/06/24 09:57 Chloride 110 mmol/L (98-107) H 11/06/24 09:57 Carbon Dioxide 22 mmol/L (22-29) 11/06/24 09:57 Anion Gap 16.4 (5-19) 11/06/24 09:57 BUN 34 mg/dL (6-20) H 11/06/24 09:57 Creatinine 3.5 mg/dL (0.5-0.9) H 11/06/24 09:57 GFR Calculation 13.7 mL/min (90-130) L 11/06/24 09:57 Glucose 83 mg/dL (65-115) 11/06/24 09:57 Calculated Osmolality 303 mOsm/kg (285-295) H 11/06/24 09:57 Calcium 8.7 mg/dL (8.5-10.5) 11/06/24 09:57 Magnesium 1.5 mg/dL (1.7-2.3) L 11/06/24 09:57 Total Bilirubin 0.2 mg/dL (0.15-1.2) 11/06/24 09:57 AST 24 U/L (0-32) 11/06/24 09:57 ALT 18 U/L (0-33) 11/06/24 09:57 Alkaline Phosphatase 89 U/L (35-105) 11/06/24 09:57 Troponin T Baseline 46 ng/L (0-10) H 11/06/24 09:57 Troponin T 120 Minute 43.20 ng/L (0-10) H 11/06/24 11:40 Delta Troponin T -2.80 ABS# (0-10) L 11/06/24 11:40 Total Protein 5.9 g/dL (6.6-8.7) L 11/06/24 09:57 Albumin 3.9 g/dL (3.5-5.2) 11/06/24 09:57 Globulin 2.0 g/dL (1.3-4.6) 11/06/24 09:57 PTH Intact 9.8 pg/mL (15-65) L 11/06/24 09:57 Calcium (PTH Intact) 8.6 mg/dL (8.5-10.5) 11/06/24 09:57 Urine Color Yellow (Yellow) 11/06/24 11:12 Urine Appearance Clear (CLEAR) 11/06/24 11:12 Urine pH 5 (5-7) 11/06/24 11:12 Ur Specific [place] 1.015 (1.005-1.030) 11/06/24 11:12 Urine Protein 1+ (Negative) H 11/06/24 11:12 Urine Glucose (UA) Norm (Normal) 11/06/24 11:12 Urine Ketones Negative (Negative) 11/06/24 11:12 Urine Blood Neg (Negative) 11/06/24 11:12 Urine Nitrate Negative (Negative) 11/06/24 11:12 Urine Bilirubin Neg (Negative) 11/06/24 11:12 Urine Urobilinogen Neg mg/dL (Negative) 11/06/24 11:12 Ur Leukocyte Esterase Negative (Negative) 11/06/24 11:12 Urine RBC 0-2 /hpf (0-2) 11/06/24 11:12 Urine WBC 0-5 /hpf (0-5) 11/06/24 11:12 Ur Squamous Epith Cells 0-5 /hpf (0-5) 11/06/24 11:12 Amorphous Sediment Not Reportable 11/06/24 11:12 Urine Bacteria None seen /hpf (NONE) 11/06/24 11:12 Hyaline Casts 2.05 /lpf 11/06/24 11:12 No radiology studies performed this visit Discharge Plan Discharge Patient Disposition: Home Clinical Impression: Myalgia, CKD (chronic kidney disease) stage 4, GFR 15-29 ml/min, History of secondary hyperparathyroidism, History of parathyroidectomy, Hyperkalemia Condition: Stable Prescriptions: New calcitriol 0.25 mcg capsule 0.25 mcg PO DAILY Qty: 30 0RF No Action atorvastatin 10 mg tablet 10 mg PO QPM Qty: 90 1RF metoprolol succinate 25 mg tablet extended release 24 hr 25 mg PO BID Qty: 180 1RF temazepam 30 mg capsule 30 mg PO .HS Qty: 30 5RF potassium chloride 20 mEq tablet,ER particles/crystals 40 meq PO BID tamsulosin 0.4 mg capsule 0.4 mg PO DAILY sodium bicarbonate 650 mg tablet 1,300 mg PO BID ergocalciferol (vitamin D2) 1,250 mcg (50,000 unit) capsule 1,250 mcg PO Q7D oxycodone 5 mg tablet 5 mg PO QID escitalopram oxalate 20 mg tablet 20 mg PO DAILY Rx Instructions: TAKE 1 TABLETS BY MOUTH ONCE DAILY Discharge Orders: Discharge ED (Routine); Ordered 11/06/24 Ordered By: Gary Arambula Referrals: Shraddha Parra FNP [Primary Care Provider] - Patient Instructions: Opioid Safety, Pain Management Activity Restrictions/Additional Instructions: Thank you for choosing [facility] for your healthcare needs today. It is very important that you follow up as instructed or that you return to the Emergency Department should you have concerns or if your condition changes or worsens in any way. You were seen today with complaints of muscle aches and cramping. Your calcium was normal your potassium was slightly elevated your kidney function also slightly elevated you are given calcium chloride to treat your elevated potassium and given IV fluids. I contacted your doctor in [place] they recommend changing your calcitriol to 0.25 mcg daily and follow-up with them as scheduled Print Language: Luxembourgish Coding Level of Care Code ED Division Plant Engineer for Alejandro Kwong
[2024-11-06 11:34] LABS: Bacteria Urine None Seen /hpf; Hyaline Casts Urine 2.05 /lpf; RBC Urine 0-2 /hpf (0-2); Squamous Epithelial Cell Urine 0-5 /hpf (0-5); WBC Urine 0-5 /hpf (0-5)
[2024-11-06 11:36] LABS: Urine Appearance Clear (CLEAR); Urine Color Yellow (Yellow)
[2024-11-06 11:37] LABS: Add Urine Culture? No; Add Urine Microscopic? YES; Bilirubin Urine Neg (Negative); Blood Urine Neg (Negative); Glucose Urine UA Norm (Normal); Ketones Urine Negative (Negative); Leukocyte Esterase Urine Negative (Negative); Nitrate Urine Negative (Negative); Protein Urine 1+ (Negative); Specific Gravity, Urine 1.015 (1.005-1.030); Urobilinogen Urine Neg (Negative); pH Urine 5 (5-7)
[2024-11-06 11:42] LABS: Magnesium 1.5 mg/dL (1.7-2.3)
[2024-11-06 12:03] LABS: ABG PCO2 31.3 mmHg (35-45); ABG PH Result 7.39 (7.35-7.45); Alveolar-Arterial Oxygen Gradi 4.1 mmHg (5-10); Base Excess ABG -5.2 mmol/L (-2.0-2.0); Blood Gas Allen Test Pos; Blood Gas Operator Identificat glc; Blood Gas Sample Site Radial, right; Blood Gas Sample Type Arterial; Carboxyhemoglobin 0.9 %THgb (0.4-20.1); HCO3 ABG 18.8 mmol/L (22-26); HGB O2 Sat 96.3 % (95-100); Ionized Calcium Level - ABG 1.1 mmol/L (1.1-1.4); Methemoglobin 0.3 % (0.4-1.5); Oxygen Device ROOM AIR; Oxygen Saturation ABG 97.5; PO2 ABG 78.7 mmHg (80.0-100.0); PO2 FiO2 Ratio Arterial Blood 374; Potassium Level - ABG 5.1 mmol/L (3.5-5.0); Total Hemoglobin 11.4 g/dL (12-16)
[2024-11-06 12:39] VITALS: BP 131/77; PULSE 87; O2SAT 98
[2024-11-06] MEDS: calcium chloride 10% Syr 10 mL 1 GM IVP (12:51)
[2024-11-06 14:40] VITALS: BP 123/71; PULSE 64; O2SAT 96
== END 2024-11-06 14:45 | disposition home or self-care (01) ==
PROVIDERS: Surgery Surgical Oncology; Emergency Provider Family Medicine; PCP Nurse Practitioner Family
DX: M79.10 Myalgia, unspecified site (principal); N18.4 Chronic kidney disease, stage 4 (severe); E78.2 Mixed hyperlipidemia; Z87.891 Personal history of nicotine dependence; Z86.39 Personal history of other endocrine, nutritional and metabolic disease; Z98.890 Other specified postprocedural states; E87.5 Hyperkalemia
CPT/HCPCS: 36415; 36600; 80051; 80053; 81001; 82310; 82330; 82805; 83735; 83970; 84484; 85025; 93005; 96374; 99284; J3490; J7030

== ENCOUNTER 2024-11-13 13:19 | Outpatient (CLI) | payer MEDICARE, MEDICAID, SELFPAY ==
[2024-11-13 15:00] LABS: Calcium 8.3 mg/dL (8.5-10.5)
[2024-11-13 15:18] LABS: 25 Hydroxy Vitamin D 32 ng/mL (30-100); Albumin Level 3.8 g/dL (3.5-5.2); Anion Gap 16.3 (5-19); Blood Urea Nitrogen 25 mg/dL (6-20); Calcium 8.1 mg/dL (8.5-10.5); Carbon Dioxide 26 mmol/L (22-29); Chloride 102 mmol/L (98-107); Glomerular Filtration Rate 12.4 mL/min (90-130); Glucose 89 mg/dL (65-115); Phosphorus 3.4 mg/dL (2.5-4.5); Potassium 4.3 mmol/L (3.5-5.1); Sodium 140 mmol/L (136-145)
[2024-11-13 15:56] LABS: Parathyroid Hormone 10.2 pg/mL (15-65)
== END 2024-11-13 13:20 | disposition home or self-care (01) ==
LOC: LAB 13:22
PROVIDERS: PCP Nurse Practitioner Family; Visit Provider Nurse Practitioner
DX: E21.0 Primary hyperparathyroidism (principal); E55.9 Vitamin D deficiency, unspecified; N25.81 Secondary hyperparathyroidism of renal origin; N18.5 Chronic kidney disease, stage 5
CPT/HCPCS: 36415; 80069; 82306; 82310; 83970

== ENCOUNTER 2024-11-21 14:58 | Outpatient (CLI) | payer MEDICARE, MEDICAID, SELFPAY ==
[2024-11-21 17:05] LABS: Albumin Level 3.9 g/dL (3.5-5.2); Anion Gap 19.3 (5-19); Blood Urea Nitrogen 38 mg/dL (6-20); Calcium 9.8 mg/dL (8.5-10.5); Carbon Dioxide 23 mmol/L (22-29); Chloride 100 mmol/L (98-107); Glomerular Filtration Rate 8.8 mL/min (90-130); Glucose 101 mg/dL (65-115); Phosphorus 4.1 mg/dL (2.5-4.5); Potassium 4.3 mmol/L (3.5-5.1); Sodium 138 mmol/L (136-145)
[2024-11-21 17:13] LABS: Calcium 9.8 mg/dL (8.5-10.5)
== END 2024-11-21 14:59 | disposition home or self-care (01) ==
PROVIDERS: PCP Nurse Practitioner Family; Visit Provider Surgery Surgical Oncology
DX: E21.0 Primary hyperparathyroidism (principal); N25.81 Secondary hyperparathyroidism of renal origin; N18.5 Chronic kidney disease, stage 5
CPT/HCPCS: 36415; 80069; 82310; 83970

== ENCOUNTER 2024-12-05 14:29 | Outpatient (CLI) | payer MEDICARE, MEDICAID, SELFPAY ==
[2024-12-05 15:50] LABS: Anion Gap 19.8 (5-19); Blood Urea Nitrogen 52 mg/dL (6-20); Carbon Dioxide 27 mmol/L (22-29); Chloride 93 mmol/L (98-107); Glomerular Filtration Rate 6.2 mL/min (90-130); Glucose 99 mg/dL (65-115); Phosphorus 4.7 mg/dL (2.5-4.5); Potassium 3.8 mmol/L (3.5-5.1); Sodium 136 mmol/L (136-145)
[2024-12-05 17:48] LABS: Calcium 15.3 mg/dL (8.5-10.5)
== END 2024-12-05 14:30 | disposition home or self-care (01) ==
PROVIDERS: PCP Nurse Practitioner Family; Visit Provider Nurse Practitioner
DX: N18.4 Chronic kidney disease, stage 4 (severe) (principal); E87.6 Hypokalemia; I12.9 Hypertensive chronic kidney disease with stage 1 through stage 4 chronic kidney disease, or unspecified chronic kidney disease; E21.0 Primary hyperparathyroidism; N25.81 Secondary hyperparathyroidism of renal origin; E55.9 Vitamin D deficiency, unspecified
CPT/HCPCS: 36415; 80069; 82310; 83970

== ENCOUNTER 2024-12-05 18:47 | Inpatient (IN) | payer MEDICARE, MEDICAID, SELFPAY ==
[2024-12-05 18:52] VITALS: BP 146/85; PULSE 85; RESP 18; TEMP 36.4; O2SAT 98
--- NOTE | 2024-12-05 19:02 | ECG_ITS ---
[facility] Test Date: 2024-12-05 Pat Name: Alexandria Delgado Department: Room: Gender: Female Package Sealer: : 1970 Requested By: Gary Ruffin Order Number: [id number] Quinton MD: Peri Martinez M.D. Measurements Intervals [place] Rate: 78 P: 54 NM: 157 QRS: 18 QRSD: 114 T: 40 QT: 377 QTc: 431 Interpretive Statements SINUS RHYTHM MODERATE INTRAVENTRICULAR CONDUCTION DELAY [110+ ms QRS DURATION] Compared to ECG 11/06/2024 11:22:20 Intraventricular conduction delay now present Short NM interval no longer present Electronically Signed On 12-06-2024 17:44:09 CDT by Peri Martinez M.D. [id number]
[2024-12-05 20:20] VITALS: BP 157/81; PULSE 85; RESP 16; O2SAT 100
--- NOTE | 2024-12-05 20:39 | W.ED.RECABL ---
HPI - Recheck/Abnormal Lab/Rx General: Chief Complaint: Recheck/Abnormal Lab/Rx Stated Complaint: Dr Leland Labs Came Back Time Seen by Provider: 12/05/24 20:17 History of Present Illness: Patient comes to the emergency department because of abnormal labs. She has elevated calcium and elevated creatinine. She is otherwise asymptomatic. She denies having any chest pain or shortness of breath or numbness or tingling. Denies abdominal pain or nausea vomiting or diarrhea. She does have a history of chronic renal failure but does not do dialysis. She had her parathyroids removed approximately 1 month ago in [place] and has been taking supplemental calcium since then. She went to go have routine labs done today and is noted to have elevated calcium and creatinine and told to come to the ER. She states that once about 4 years ago she did have dialysis 1 time and that was when they first started to discover that she had parathyroid disease. Related Data Home Medications ?Medication ?Instructions ?Recorded ?Confirmed ergocalciferol (vitamin D2) 1,250 1,250 mcg PO Q7D 11/06/24 11/06/24 mcg (50,000 unit) capsule escitalopram oxalate 20 mg tablet 20 mg PO DAILY 11/06/24 11/06/24 oxycodone 5 mg tablet 5 mg PO QID 11/06/24 11/06/24 potassium chloride 20 mEq 40 meq PO BID 11/06/24 11/06/24 tablet,extended release(part/cryst) sodium bicarbonate 650 mg tablet 1,300 mg PO BID 11/06/24 11/06/24 tamsulosin 0.4 mg capsule 0.4 mg PO DAILY 11/06/24 11/06/24 Previous Rx's ?Medication ?Instructions ?Recorded atorvastatin 10 mg tablet 10 mg PO QPM #90 tabs 10/23/24 metoprolol succinate 25 mg 25 mg PO BID #180 tabs 10/23/24 tablet,extended release 24 hr temazepam 30 mg capsule 30 mg PO .HS #30 caps 10/23/24 calcitriol 0.25 mcg capsule 0.25 mcg PO DAILY #30 caps 11/06/24 Allergies Allergy/AdvReac Type Severity Reaction Status Date / Time clindamycin Allergy Unknown ALGY-Rash Verified 12/05/24 18:59 diphenhydramine (From Allergy Unknown Unknown Verified 12/05/24 18:59 Benadryl) ferumoxytol (From Feraheme) Allergy Unknown Unknown Verified 12/05/24 18:59 flurbiprofen (From Ansaid) Allergy Unknown Unknown Verified 12/05/24 18:59 PFSH ED PFSH: Medical History Abnormal nuclear stress test Atypical chest pain Hyperparathyroidism , secondary, non-renal History of gastritis Thyroid nodule Chronic nonspecific colitis History of Clostridioides difficile colitis Chronic hypokalemia Chronic iron deficiency anemia Herpes simplex virus (HSV) infection CKD (chronic kidney disease) stage 4, GFR 15-29 ml/min Gastric reflux Gastritis, hiatal hernia per patient IBS (irritable bowel syndrome) Slow transit constipation Mixed hyperlipidemia Gout, unspecified Surgical History History of vascular surgery bilat arms History of endometrial ablation History of tubal ligation History of parathyroidectomy History of cholecystectomy History of tonsillectomy History of section Family History Grandfather CAD (coronary artery disease) Has some heart problems. Details are not available. Other Diabetes Hyperlipidemia Hypertension Social History Smoking and tobacco/nicotine status: former use of tobacco/nicotine Second hand smoke exposure: No Alcohol intake: unknown Substance/Drug Use: never Adopted: No Caregiver/support person: No Lives independently: Yes Household members: significant other Housing: House Marital status: Number of children: 3 service: No Current occupational status: disabled Do you think of yourself as: Straight/Heterosexual Current gender identity: Female Physical Exam Const: COMMON NORMALS: no acute distress, average body habitus, patient oriented x3, no limitations, healthy appearing, alert and well nourished Neck/C-Spine: COMMON NORMALS: full ROM, no lymphadenopathy, supple, no meningeal signs, no JVD and No carotid bruits Resp: COMMON NORMALS: normal respiratory effort, No retractions, No use of accessory muscles, clear to auscultation bilaterally and percussion normal AUSCULTATION: clear to auscultation bilaterally PERCUSSION: percussion normal Cardio: COMMON NORMALS: no JVD, regular rate, regular rhythm, S1 normal heart sound present, S2 normal heart sound present, No gallops present (Cardio), No clicks present (Cardio), No murmurs present (Cardio), No rub (Cardio) and Peripheral pulses 2+ throughout RATE: regular rate RHYTHM: regular rhythm HEART SOUNDS: S1 normal heart sound present and S2 normal heart sound present PERIPHERAL PULSES: Peripheral pulses 2+ throughout GI: COMMON NORMALS: Normal to inspection, nondistended, normoactive bowel sounds present, Soft to palpation, non-tender, No hepatosplenomegaly present, no masses and no bruits PALPATION: Yes Soft to palpation and Yes No hepatosplenomegaly present Neuro: COMMON NORMALS: patient oriented x3 SENSORIUM/ORIENTATION: Yes alert MENINGEAL SIGNS: Yes no meningeal signs Skin: OTHER: Well-healing surgical incision on neck from recent parathyroid surgery. Course Vital Signs: Vital signs: Vital Signs Temperature 97.6 F 12/05/24 18:52 Pulse Rate 85 12/05/24 20:20 Respiratory Rate 16 12/05/24 20:20 Blood Pressure 157/81 12/05/24 20:20 Pulse Oximetry 100 12/05/24 20:20 Oxygen Delivery Me thod Room Air 12/05/24 20:20 MDM - Recheck/Abnormal Lab/Rx Medical Decision Making Patient presents emerged part with complaint of abnormal labs. Has acute on chronic renal failure with hypercalcemia. She does take quite a few calcium supplements however because of history of parathyroid disease. Patient is asymptomatic otherwise. Patient does have acute on chronic renal failure as well as hypercalcemia. Discussed with Dr. Dominguez, hospitalist. Will start with IV fluid hydration and recheck labs in the morning. Lab Data 12/05/24 20:45 12/05/24 20:45 Laboratory Results WBC 6.93 10^3/uL (3.29-11.43) 12/05/24 20:45 RBC 3.31 10^6/uL (3.85-5.65) L 12/05/24 20:45 Hgb 9.90 g/dL (11.27-16.99) L 12/05/24 20:45 Hct 31.1 % (36-47) L 12/05/24 20:45 MCV 94.0 fl (85-98) 12/05/24 20:45 MCH 29.9 pg (27-33) 12/05/24 20:45 MCHC 31.8 g/dL (30-55) 12/05/24 20:45 RDW 12.6 % (12.1-15.1) 12/05/24 20:45 Plt Count 222 10^3/cmm (157-399) 12/05/24 20:45 MPV 9.7 fL (7.4-10.4) 12/05/24 20:45 Neut % (Auto) 62.7 % 12/05/24 20:45 Lymph % (Auto) 22.5 % 12/05/24 20:45 [place]cdowell % (Auto) 10.5 % 12/05/24 20:45 Eos % (Auto) 2.7 % 12/05/24 20:45 Baso % (Auto) 1.2 % 12/05/24 20:45 Neut # (Auto) 4.34 10^3/uL (1.8-7.7) 12/05/24 20:45 Lymph # (Auto) 1.6 10^3/uL (0.8-4.8) 12/05/24 20:45 Mcdowell # (Auto) 0.7 10^3/uL (0.2-0.9) 12/05/24 20:45 Eos # (Auto) 0.2 10^3/uL (0.0-0.8) 12/05/24 20:45 Baso # (Auto) 0.1 10^3/uL (0.0-0.1) 12/05/24 20:45 Nucleated RBC % (auto) 0 % 12/05/24 20:45 Nucleated RBCs # 0.0 /100WBC 12/05/24 20:45 Sodium 137 mmol/L (136-145) 12/05/24 20:45 Potassium 3.8 mmol/L (3.5-5.1) 12/05/24 20:45 Chloride 93 mmol/L (98-107) L 12/05/24 20:45 Carbon Dioxide 30 mmol/L (22-29) H 12/05/24 20:45 Anion Gap 17.8 (5-19) 12/05/24 20:45 BUN 54 mg/dL (6-20) H 12/05/24 20:45 Creatinine 7.5 mg/dL (0.5-0.9) H* 12/05/24 20:45 GFR Calculation 5.7 mL/min (90-130) L 12/05/24 20:45 Glucose 138 mg/dL (65-115) H 12/05/24 20:45 Calculated Osmolality 301 mOsm/kg (285-295) H 12/05/24 20:45 Calcium 15.1 mg/dL (8.5-10.5) H* 12/05/24 20:45 Magnesium 2.4 mg/dL (1.7-2.3) H 12/05/24 20:45 Total Bilirubin 0.2 mg/dL (0.15-1.2) 12/05/24 20:45 AST 20 U/L (0-32) 12/05/24 20:45 ALT 18 U/L (0-33) 12/05/24 20:45 Alkaline Phosphatase 110 U/L (35-105) H 12/05/24 20:45 Total Protein 6.4 g/dL (6.6-8.7) L 12/05/24 20:45 Albumin 3.6 g/dL (3.5-5.2) 12/05/24 20:45 Globulin 2.8 g/dL (1.3-4.6) 12/05/24 20:45 Urine Color Yellow (Yellow) 12/05/24 21: Urine Appearance Clear (CLEAR) 12/05/24 21:09 Urine pH 7.5 (5-7) 12/05/24 21:09 Ur Specific [place] 1.011 (1.005-1.030) 12/05/24 21:09 Urine Protein 2+ (Negative) A 12/05/24 21: Urine Glucose (UA) Negative (Normal) 12/05/24 21: Urine Ketones Negative (Negative) 12/05/24 21: Urine Blood 2+ (Negative) A 12/05/24 21: Urine Nitrate Negative (Negative) 12/05/24 21: Urine Bilirubin Negative (Negative) 12/05/24 21: Urine Urobilinogen 0.2 mg/dL (Negative) 12/05/24 21:09 Ur Leukocyte Esterase Trace (Negative) A 12/05/24 21: Urine RBC 0-2 /hpf (0-2) 12/05/24 21:09 Urine WBC 0-5 /hpf (0-5) 12/05/24 21:09 Ur Squamous Epith Cells 0-5 /hpf (0-5) 12/05/24 21:09 Amorphous Sediment Not Reportable 12/05/24 21:09 Urine Bacteria None seen /hpf (NONE) 12/05/24 21:09 Hyaline Casts 0.40 /lpf 12/05/24 21:09 No radiology studies performed this visit Discharge Plan Discharge Patient Disposition: Placed in Observation Clinical Impression: Hypercalcemia Renal failure (ARF), acute on chronic Qualifiers: Acute renal failure type: unspecified Chronic kidney disease stage: unspecified stage Qualified Code(s): N17.9 - Acute kidney failure, unspecified Coding Level of Care Code ED [employer] for Alejandro Kwong
[2024-12-05 21:05] LABS: Basophils # 0.1 10^3/uL (0.0-0.1); Basophils % 1.2 %; Eosinophils # 0.2 10^3/uL (0.0-0.8); Eosinophils % 2.7 %; Hematocrit 31.1 % (36-47); Lymphocytes # 1.6 10^3/uL (0.8-4.8); Lymphocytes % 22.5 %; Mean Corpuscular HGB Conc 31.8 g/dL (30-55); Mean Corpuscular Hemoglobin 29.9 pg (27-33); Mean Platelet Volume 9.7 fL (7.4-10.4); Monocytes # 0.7 10^3/uL (0.2-0.9); Monocytes % 10.5 %; Neutrophils # 4.34 10^3/uL (1.8-7.7); Neutrophils % 62.7 %; Nucleated Red Blood Cells % 0 %; Platelet Count 222 10^3/cmm (157-399); Red Blood Count 3.31 10^6/uL (3.85-5.65); Red Cell Distribution Width 12.6 % (12.1-15.1); White Blood Count 6.93 10^3/uL (3.29-11.43)
[2024-12-05 21:23] LABS: Alanine Aminotransferase 18 U/L (0-33); Albumin Level 3.6 g/dL (3.5-5.2); Alkaline Phosphatase 110 U/L (35-105); Anion Gap 17.8 (5-19); Aspartate Amino Transferase 20 U/L (0-32); Blood Urea Nitrogen 54 mg/dL (6-20); Carbon Dioxide 30 mmol/L (22-29); Chloride 93 mmol/L (98-107); Creatinine Clr Calc Pharmacy 8.9075; Globulin 2.8 g/dL (1.3-4.6); Glomerular Filtration Rate 5.7 mL/min (90-130); Glucose 138 mg/dL (65-115); Magnesium 2.4 mg/dL (1.7-2.3); Osmolality Calculated 301 mOsm/kg (285-295); Potassium 3.8 mmol/L (3.5-5.1); Sodium 137 mmol/L (136-145); Total Bilirubin 0.2 mg/dL (0.15-1.2); Total Protein 6.4 g/dL (6.6-8.7)
[2024-12-05 21:25] LABS: Bilirubin Urine Negative (Negative); Blood Urine 2+ (Negative); Glucose Urine UA Negative (Normal); Ketones Urine Negative (Negative); Leukocyte Esterase Urine Trace (Negative); Nitrate Urine Negative (Negative); Protein Urine 2+ (Negative); Specific Gravity, Urine 1.011 (1.005-1.030); Urine Appearance Clear (CLEAR); Urine Color Yellow (Yellow); Urobilinogen Urine 0.2 mg/dL (Negative); pH Urine 7.5 (5-7)
[2024-12-05 21:26] LABS: Calcium 15.1 mg/dL (8.5-10.5)
[2024-12-05 21:30] LABS: Add Urine Microscopic? YES; Bacteria Urine None Seen /hpf; RBC Urine 0-2 /hpf (0-2); Squamous Epithelial Cell Urine 0-5 /hpf (0-5); WBC Urine 0-5 /hpf (0-5)
--- NOTE | 2024-12-05 21:33 | PM.HP ---
Providers/Chief Complaint Primary Care Provider: LOTUS Urban Chief Complaint: Dr Leland Because of Lab Results History of Present Illness Alexandria Delgado is a 54 year old female with a past medical history significant for chronic kidney disease stage IV, hyperparathyroidism status post multiple parathyroidectomies on calcium supplementation, and multiple other comorbidities who presents emergency department with abnormal labs. Patient reports she was contacted by the on-call emergency room physician assistant due to abnormal labs. Labs that showed worsening renal function and hypercalcemia. Patient notes a complex history of hyperparathyroidism. She follows with [facility] and recently underwent a third surgery on her parathyroids on October 31. Patient's been on calcium supplementation as such. Labs today revealed a calcium level of 15.3 mg/dL and creatinine 6.9 mg/dL. She has a history of chronic kidney disease stage IV. Her baseline creatinine has been around 3.5 recently. She follows with Dr. Nation in [place]. In the emergency department, repeat labs showed again hypercalcemia to 15.1 mg/dL. PTH 6 pg/mL. BUN 54. Creatinine 7.5 mg/dL. Potassium 3.8. Patient Dors is symptoms of slight headache. Denies nausea, vomiting, muscle cramps, mental status changes, or other new complaints. She does note a prior history of severe hypercalcemia requiring dialysis x 2 that occurred about 10 years ago. Review of Systems Narrative: A complete review of systems was obtained and is negative except as stated in HPI. Medications/Allergies Home Medications ?Medication ?Instructions ?Recorded ?Confirmed ?Last Taken ?Type atorvastatin 10 mg tablet 10 mg PO QPM #90 tabs 10/23/24 11/06/24 11/05/24 Rx metoprolol succinate 25 mg 25 mg PO BID #180 tabs 10/23/24 11/06/24 11/06/24 Rx tablet,extended release 24 hr temazepam 30 mg capsule 30 mg PO .HS #30 caps 10/23/24 11/06/24 11/05/24 Rx calcitriol 0.25 mcg capsule 0.25 mcg PO DAILY #30 caps 11/06/24 Unknown Rx ergocalciferol (vitamin D2) 1,250 1,250 mcg PO Q7D 11/06/24 11/06/24 Unknown History mcg (50,000 unit) capsule escitalopram oxalate 20 mg tablet 20 mg PO DAILY 11/06/24 11/06/24 11/06/24 History oxycodone 5 mg tablet 5 mg PO QID 11/06/24 11/06/24 Unknown History potassium chloride 20 mEq 40 meq PO BID 11/06/24 11/06/24 11/06/24 History tablet,extended release(part/cryst) sodium bicarbonate 650 mg tablet 1,300 mg PO BID 11/06/24 11/06/24 11/06/24 History tamsulosin 0.4 mg capsule 0.4 mg PO DAILY 11/06/24 11/06/24 11/06/24 History Allergies Allergy/AdvReac Type Severity Reaction Status Date / Time clindamycin Allergy Unknown ALGY-Rash Verified 12/05/24 18:59 diphenhydramine (From Allergy Unknown Unknown Verified 12/05/24 18:59 Benadryl) ferumoxytol (From Feraheme) Allergy Unknown Unknown Verified 12/05/24 18:59 flurbiprofen (From Ansaid) Allergy Unknown Unknown Verified 12/05/24 18:59 PFSH Acute PFSH: Medical History Abnormal nuclear stress test Atypical chest pain Hyperparathyroidism , secondary, non-renal History of gastritis Thyroid nodule Chronic nonspecific colitis History of Clostridioides difficile colitis Chronic hypokalemia Chronic iron deficiency anemia Herpes simplex virus (HSV) infection CKD (chronic kidney disease) stage 4, GFR 15-29 ml/min Gastric reflux Gastritis, hiatal hernia per patient IBS (irritable bowel syndrome) Slow transit constipation Mixed hyperlipidemia Gout, unspecified Surgical History History of vascular surgery bilat arms History of endometrial ablation History of tubal ligation History of parathyroidectomy History of cholecystectomy History of tonsillectomy History of section Family History Grandfather CAD (coronary artery disease) Has some heart problems. Details are not available. Other Diabetes Hyperlipidemia Hypertension Social History Smoking and tobacco/nicotine status: former use of tobacco/nicotine Second hand smoke exposure: No Alcohol intake: unknown Substance/Drug Use: never Adopted: No Caregiver/support person: No Lives independently: Yes Household members: significant other Housing: House Marital status: Number of children: 3 service: No Current occupational status: disabled Do you think of yourself as: Straight/Heterosexual Current gender identity: Female Vitals/I&O/Wt Last Vital Signs Temp 97.6 F 12/05/24 18:52 Pulse 85 12/05/24 20:20 Resp 16 12/05/24 20:20 BP 157/81 12/05/24 20:20 Pulse Ox 100 12/05/24 20:20 O2 Del Method Room Air 12/05/24 20:20 Weight last 48 hrs Weight 77.111 kg Physical Exam Narrative: General: Patient is awake and alert. Very pleasant. Head: Normocephalic. Atraumatic. EOM intact. Neck: No JVD. Cardiovascular: RRR. No gallops. No murmurs. Lungs: Clear to auscultation, no use of accessory muscles, no crackles or wheezes. Skin: No jaundice. No rashes. Abdomen: Normal bowel sounds, abdomen soft and nontender. Transplanted parathyroid gland in abdomen. Genito Urinary: Genital exam not performed since complaints not related. Rectal: Rectal exam not performed since no symptoms indicated blood loss. Extremities: No cyanosis or clubbing. Musculoskeletal: No erythematous joints. Neurological: Moves all 4 extremities. No myoclonus. Data 12/05/24 20:45 12/05/24 20:45 A&P Assessment and plan (1) Renal failure (ARF), acute on chronic: (2) Hypercalcemia: (3) Insomnia: (4) HTN (hypertension): (5) Mixed hyperlipidemia: Plan Hypercalcemia History of hyperparathyroidism with recent third parathyroidectomy - Start normal saline - Start calcitonin - Hold off on bisphosphonate d/t renal function - Repeat labs in a.m. - Nephrology consultation Acute kidney injury on CKD stage IV - Start NS; d/w patient she has significant concern regarding development of fluid overload; she is ultimately agreeable to NS at 75 mL/hr for now - Check urine lytes - Strict I's and O's - Daily weights - Renally dose medications - Nephrology consultation Hyperlipidemia - Continue statin Hypertension - Continue metoprolol Insomnia - Continue temazepam DVT prophylaxis: Heparin CODE STATUS: Full code PDMP PDMP Reviewed: Not Reviewed Attestations Medical Necessity Statement*: Patient presents with abnormal labs consisting of hypercalcemia and acute kidney injury on CKD stage IV with expected hospitalization not to cross 2 midnights for IV fluids, calcitonin/bisphosphonate, and serial labs. Coding Level of Care Code Acute Code for Chg Fwd Diagnoses Renal failure (ARF), acute on chronic N17.9; N18.9 Acute renal failure type: unspecified Chronic kidney disease stage: unspecified stage Hypercalcemia E83.52 Primary insomnia F51.01 Insomnia type: primary HTN (hypertension) I10 Mixed hyperlipidemia E78.2
[2024-12-05 21:51] VITALS: BP 142/82; PULSE 72; RESP 16; O2SAT 93
[2024-12-05 21:55] VITALS: BP 142/82; PULSE 72; RESP 16; O2SAT 93
[2024-12-05 22:18] VITALS: PULSE 85
[2024-12-05 22:41] VITALS: BMI 28.3
[2024-12-05] MEDS: sodium chloride 0.9% 1,000 ML 999 ML IV (22:41)
[2024-12-05 23:03] LABS: Potassium, Radom Urine 22 mmol/L; Urine Random Chloride 18 mmol/L; Urine Random Sodium 41 mmol/L
[2024-12-05] MEDS: heparin 5,000 unit/mL INJ 1 mL 5000 UNIT SUBCUT (23:12)
[2024-12-05] MEDS: temazepam 15 mg Capsule 30 MG PO (23:12)
[2024-12-05] MEDS: calcitonin,salmon 200 unit/mL SDV 2mL 300 UNIT SUBCUT (23:12)
[2024-12-05] MEDS: acetaminophen 325 mg Tablet 650 MG PO (23:17)
[2024-12-05 23:33] VITALS: BP 132/78; PULSE 72; RESP 17; TEMP 36.7; O2SAT 96
[2024-12-05] MEDS: sodium chloride 0.9% 1,000 ML 75 ML IV (23:48)
[2024-12-06] VITALS (10 sets, daily range): BP systolic 114–158; BP diastolic 60–95; PULSE 62–80; RESP 16–18; TEMP 36.3–37.1; O2SAT 94–98
[2024-12-06 00:01] LABS: 25 Hydroxy Vitamin D 33 ng/mL (30-100)
[2024-12-06 04:40] LABS: Ionized Calcium 1.7 mmol/L (1.1-1.4)
[2024-12-06 05:07] LABS: Basophils # 0.1 10^3/uL (0.0-0.1); Basophils % 0.9 %; Eosinophils # 0.2 10^3/uL (0.0-0.8); Eosinophils % 2.8 %; Hematocrit 31.1 % (36-47); Lymphocytes # 1.1 10^3/uL (0.8-4.8); Lymphocytes % 13.2 %; Mean Corpuscular HGB Conc 31.8 g/dL (30-55); Mean Corpuscular Hemoglobin 30.3 pg (27-33); Mean Corpuscular Volume 95.1 fl (85-98); Mean Platelet Volume 9.5 fL (7.4-10.4); Monocytes # 0.8 10^3/uL (0.2-0.9); Monocytes % 9.5 %; Neutrophils # 5.82 10^3/uL (1.8-7.7); Neutrophils % 73.3 %; Nucleated Red Blood Cells % 0 %; Platelet Count 241 10^3/cmm (157-399); Red Blood Count 3.27 10^6/uL (3.85-5.65); Red Cell Distribution Width 12.5 % (12.1-15.1); White Blood Count 7.93 10^3/uL (3.29-11.43)
[2024-12-06 05:26] LABS: Alanine Aminotransferase 17 U/L (0-33); Albumin Level 3.4 g/dL (3.5-5.2); Alkaline Phosphatase 87 U/L (35-105); Aspartate Amino Transferase 18 U/L (0-32); Blood Urea Nitrogen 50 mg/dL (6-20); Carbon Dioxide 28 mmol/L (22-29); Chloride 99 mmol/L (98-107); Globulin 2.4 g/dL (1.3-4.6); Glomerular Filtration Rate 5.8 mL/min (90-130); Glucose 123 mg/dL (65-115); Osmolality Calculated 303 mOsm/kg (285-295); Sodium 139 mmol/L (136-145); Total Bilirubin 0.2 mg/dL (0.15-1.2); Total Protein 5.8 g/dL (6.6-8.7)
[2024-12-06 05:30] LABS: Magnesium 2.3 mg/dL (1.7-2.3); Phosphorus 4.5 mg/dL (2.5-4.5)
[2024-12-06 05:35] LABS: Calcium 13.6 mg/dL (8.5-10.5)
[2024-12-06] MEDS: oxyCODONE 5 mg IR Tab/Cap PO ×3 (08:17→20:53)
[2024-12-06] MEDS: heparin 5,000 unit/mL INJ 1 mL 5000 UNIT SUBCUT ×2 (08:18→20:53)
[2024-12-06] MEDS: metoprolol succinate ER (24 HR) 25 mg Tablet PO ×2 (08:18→20:53)
[2024-12-06] MEDS: tamsulosin 0.4 mg Capsule PO (08:18)
[2024-12-06] MEDS: calcitonin,salmon 200 unit/mL SDV 2mL 300 UNIT SUBCUT ×2 (08:19→20:53)
--- NOTE | 2024-12-06 09:20 | CTR_ITS ---
PROCEDURE INFORMATION: Exam: CT Abdomen And Pelvis Without Contrast Exam date and time: 12/06/2024 12:52 PM Age: 54 years old Clinical indication: Condition or disease; Other: Renal disease; Additional info: Renal disease, hypercalcemia TECHNIQUE: Imaging protocol: Computed tomography of the abdomen and pelvis without contrast. Radiation optimization: All CT scans at this facility use at least one of these dose optimization techniques: automated exposure control; mA and/or kV adjustment per patient size (includes targeted exams where dose is matched to clinical indication); or iterative reconstruction. COMPARISON: CR XR sacrum coccyx min 2V [id number] 04/09/2021 2:16 PM RADIATION DOSE METRICS: Total DLP (mGy-cm): 637.84 FINDINGS: Lungs: Lung bases are clear. No pleural effusion. Liver: Normal. No mass. Gallbladder and biliary ducts: The gallbladder has been resected. Pancreas: Normal. No ductal dilation. Spleen: Normal. No splenomegaly. Adrenal glands: Normal. No mass. Kidneys and ureters: The right kidney contains multiple cysts and low-density lesions with the largest measuring 2.2 cm in diameter. The left kidney contains 3 stones measuring up to 5 mm in diameter. Multiple cysts and low-density lesions are noted with the largest measuring 3.9 cm in diameter. Stomach and bowel: Unremarkable. No obstruction. No mucosal thickening. Appendix: No evidence of appendicitis. Intraperitoneal space: Unremarkable. No free air. No significant fluid collection. Vasculature: Unremarkable. No abdominal aortic aneurysm. Lymph nodes: Unremarkable. No enlarged lymph nodes. Urinary bladder: Unremarkable as visualized. Reproductive: Unremarkable as visualized. Bones/joints: Unremarkable. No acute fracture. Soft tissues: Unremarkable. CT/CT abdomen pelvis wo con [id number] IMPRESSION: 1. Multiple bilateral renal lesions and cysts. I am unable to totally exclude renal tumor on this study. You may wish to correlate with renal ultrasound or MRI for further evaluation. 2. Left renal stones COMMENTS: Consistent with the [employer] [place] [employer]'s Incidental Findings Committee white paper (J Am Suzanna Radiol 2018): Any incidental renal lesion less than 1 cm or classified as too small to characterize, or any incidental cystic renal lesion characterized as simple-appearing, is likely benign. No follow-up imaging is recommended for these lesions per consensus recommendations based on imaging criteria.
--- NOTE | 2024-12-06 09:27 | ECG_ITS ---
[facility] Test Date: 2024-12-06 Pat Name: Alexandria Delgado Department: Room: 260 Gender: Female Business Management Professor: : 1970 Requested By: Adrienne Kimball Order Number: [id number] Qu[place] MD: Peri Martinez M.D. Measurements Intervals [place] Rate: 77 P: 52 SD: 147 QRS: 39 QRSD: 110 T: 33 QT: 390 QTc: 443 Interpretive Statements SINUS RHYTHM Compared to ECG 12/05/2024 19:02:01 Intraventricular conduction delay no longer present Electronically Signed On 12-06-2024 17:41:17 CDT by Peri Martinez M.D. [email or web address]
[2024-12-06] MEDS: sodium chloride 0.9% 1,000 ML 75 ML IV (10:39)
--- NOTE | 2024-12-06 10:43 | PC.NURSE ---
0800 - During assessment fluids noted to be running at 150ml/hr. Crackles to bilateral lower lobes noted, as well as edema to feet. Pt states her hands feel puffy and she is SOB. Vital signs stable. RA. Fluids stopped. Notified Dr. Kimball. Fluids ordered to resume at 75ml/hr d/t DOMENIC. Awaiting nephrology to round on this patient. Patient states she is very interested in receiving temporary dialysis to correct this issue. She states this has happened in the past. Breakfast held in case of temporary dialysis catheter placement.
--- NOTE | 2024-12-06 10:48 | PM.CONSULT ---
Providers/Reason For Consult Consulting Physician/Specialty*: kommana/Nephrology Reason for Consult*: DOMENIC on CKD Hypercalcemia Attending Physician: Erik Dominguez MD Primary Care Provider: LOTUS Urban History of Present Illness History of Present Illness Alexandria Delgado is a 54 year old female Patient is a 54-year-old female with past medical history significant for chronic kidney disease stage IV, history of primary hyperparathyroidism with prior parathyroidectomy removing 3 glands, last removal was a month ago. Patient reports that she had initial parathyroid gland removed about 10 years ago due to severe hypercalcemia and required dialysis and the second gland was removed in 2017 For continued hypercalcemia. And in October 2024 patient was admitted to [facility] and underwent removal of third parathyroid gland but partially gland was implanted into abdomen. Postoperatively patient had severe hypocalcemia which was symptomatic and required calcium supplementation, initially started off with 1 pill of calcitriol and 3 pills of calcium. Due to persistent hypocalcemia recently she was increased to 3 tablets of calcitriol, vitamin D 2 and 6 tablets of calcium. Patient followed by surgery at [facility] and also followed by endocrinology as well as nephrology. She had outpatient labs drawn on 12/05/2024 that showed calcium level of 15.3 and she was asked to go to the emergency department for further management. Also noted that her renal function is worse with a creatinine of 7.5. Her baseline renal function is anywhere from 3-4 creatinine. Patient reports poor p.o. intake. She was started on normal saline at 150 cc an hour but that has been cut down to 75 cc an hour due to patient's shortness of breath had crackles and developing lower extremity edema. On further questioning patient reports shortness of breath with exertion. Review of Systems Narrative: negative Medications/Allergies Home Medications ?Medication ?Instructions ?Recorded ?Confirmed ?Last Taken ?Type atorvastatin 10 mg tablet 10 mg PO QPM #90 tabs 10/23/24 12/06/24 11/05/24 Rx metoprolol succinate 25 mg 25 mg PO BID #180 tabs 10/23/24 12/06/24 12/05/24 Rx tablet,extended release 24 hr temazepam 30 mg capsule 30 mg PO .HS #30 caps 10/23/24 12/06/24 12/05/24 Rx ergocalciferol (vitamin D2) 1,250 1,250 mcg PO Q7D 11/06/24 12/06/24 Unknown History mcg (50,000 unit) capsule escitalopram oxalate 20 mg tablet 20 mg PO DAILY 11/06/24 12/06/24 12/05/24 History potassium chloride 20 mEq 40 meq PO BID 11/06/24 12/06/24 12/05/24 History tablet,extended release(part/cryst) sodium bicarbonate 650 mg tablet 1,300 mg PO BID 11/06/24 12/06/24 12/05/24 History tamsulosin 0.4 mg capsule 0.4 mg PO DAILY 11/06/24 12/06/24 12/05/24 History calcitriol 0.25 mcg capsule 0.25 mcg PO TID 12/06/24 12/06/24 12/05/24 History Allergies Allergy/AdvReac Type Severity Reaction Status Date / Time clindamycin Allergy Unknown ALGY-Rash Verified 12/05/24 18:59 diphenhydramine (From Allergy Unknown Unknown Verified 12/05/24 18:59 Benadryl) ferumoxytol (From Feraheme) Allergy Unknown Unknown Verified 12/05/24 18:59 flurbiprofen (From Ansaid) Allergy Unknown Unknown Verified 12/05/24 18:59 Current Medications Generic Name Dose Route Start Last Admin Trade Name Freq PRN Reason Stop Dose Admin Acetaminophen 650 mg 12/05/24 22:18 12/05/24 23:17 Acetaminophen 325 Mg Tablet PO 650 mg Q6H PRN Administration Mild/Mod Pain Or Temp >/= 101 Calcitonin [place] 300 unit 12/05/24 22:18 12/06/24 08:19 Calcitonin,[place] 200 Unit/Ml Sdv 2ml SUBCUT 300 unit BID@0900,2100 TYRON Administration Heparin Sodium (Porcine) 5,000 unit 12/05/24 22:18 12/06/24 08:18 Heparin 5,000 Unit/Ml Inj 1 Ml SUBCUT 5,000 unit BID@0900,2100 TYRON Administration Sodium Chloride 1,000 mls @ 150 mls/hr 12/05/24 22:18 12/06/24 10:39 Sodium Chloride 0.9% IV 75 mls/hr .Q6H40M TYRON Administration Metoprolol Succinate 25 mg 12/06/24 09:00 12/06/24 08:18 Metoprolol Succinate Er (24 Hr) 25 Mg Tablet PO 25 mg BID TYRON Administration Oxycodone HCl 5 mg 12/05/24 22:18 12/06/24 08:17 Oxycodone 5 Mg Ir Tab/Cap PO 5 mg Q4H PRN Administration pain Tamsulosin HCl 0.4 mg 12/06/24 09:00 12/06/24 08:18 Tamsulosin 0.4 Mg Capsule PO 0.4 mg DAILY TYRON Administration Temazepam 30 mg 12/05/24 22:30 12/05/24 23:12 Temazepam 15 Mg Capsule PO 30 mg BEDTIME TYRON Administration PFSH Acute PFSH: Medical History Abnormal nuclear stress test Atypical chest pain Hyperparathyroidism , secondary, non-renal History of gastritis Thyroid nodule Chronic nonspecific colitis History of Clostridioides difficile colitis Chronic hypokalemia Chronic iron deficiency anemia Herpes simplex virus (HSV) infection CKD (chronic kidney disease) stage 4, GFR 15-29 ml/min Gastric reflux Gastritis, hiatal hernia per patient IBS (irritable bowel syndrome) Slow transit constipation Mixed hyperlipidemia Gout, unspecified Surgical History History of vascular surgery bilat arms History of endometrial ablation History of tubal ligation History of parathyroidectomy History of cholecystectomy History of tonsillectomy History of section Family History Grandfather CAD (coronary artery disease) Has some heart problems. Details are not available. Other Diabetes Hyperlipidemia Hypertension Social History Smoking and tobacco/nicotine status: former use of tobacco/nicotine Second hand smoke exposure: No Alcohol intake: unknown Substance/Drug Use: never Adopted: No Caregiver/support person: No Lives independently: Yes Household members: significant other Housing: House Marital status: Number of children: 3 service: No Current occupational status: disabled Do you think of yourself as: Straight/Heterosexual Current gender identity: Female Vitals/I&O/Wt Last Vital Signs Temp 98.0 F 12/06/24 08:00 Pulse 73 12/06/24 08:00 Resp 17 12/06/24 08:00 BP 120/69 12/06/24 08:00 Pulse Ox 96 05/07/25 08:00 O2 Del Method Room Air 12/06/24 08:00 12/05/24 12/06/24 12/06/24 22:59 06:59 14:59 Intake Total 1300 / 1300 813.75 / 813.75 Output Total 1000 / 1000 300 / 300 Balance 300 / 300 513.75 / 513.75 Weight last 48 hrs Weight 82.463 kg Weight 77.111 kg Weight 77.111 kg Physical Exam Narrative: awake , alert On room air PEERLA S1S2 RRR per report Lungs clear per report No edema Data 12/06/24 04:34 12/06/24 04:34 A&P Assessment and plan (1) Hypercalcemia: 1. Acute on chronic kidney disease stage III: Baseline creatinine is in the mid 3 range and renal function had been getting worse and now has severe DOMENIC with a creatinine of 7.5, unable to tolerate aggressive IV fluid resuscitation due to shortness of breath and volume overload. DOMENIC likely contributed from severe hypercalcemia and decreased p.o. intake - Will request temporary HD catheter placement and plan on HD today - Monitor renal function closely 2. Severe hypercalcemia: Patient with extensive history of hyperparathyroidism with 3 parathyroid glands removed, last removal in October 2024-patient had postoperative severe hypocalcemia and was started on aggressive calcium supplementation with calcitriol, calcium carbonate and vitamin D. Now patient has severe hypercalcemia in the setting of DOMENIC. Holding all calcium supplements and vitamin D for now, check calcium levels daily, repeat PTH,-appropriately suppressed (PTH was 6 on 12/05/2024). - Agree with calcitonin, avoid bisphosphonates - HD as above -Repeat PTH 3. Anemia:, Will check iron studies and may require LUIS ENRIQUE 4. Hypertension: On metoprolol Patient evaluated using audiovisual cart. Time spent 40 minutes. (2) Renal failure (ARF), acute on chronic: PDMP PDMP Reviewed: Not Reviewed Consult Attestations Medical Necessity Statement: per juan Coding Level of Care Code Acute Code for Chg Fwd Diagnoses Hypercalcemia E83.52 Renal failure (ARF), acute on chronic N17.9; N18.9 Acute renal failure type: unspecified Chronic kidney disease stage: unspecified stage
--- NOTE | 2024-12-06 12:23 | P.PN_ITS ---
Subjective 2 Subjective: 54 year old female with a past medical h istory significant for chronic kidney disease stage IV, hyperparathyroidism status post multiple parathyroidectomies on calcium supplementation, and multiple other comorbidities who presents emergency department with abnormal labs. seen by nephrology today recommend placing temporary dialysis catheter she feels swollen denies headache, cramping, abdominal pain or dzzness Vitals/I&O/Wt Last Vital Signs Temp 98.5 F 12/06/24 11:58 Pulse 74 12/06/24 11:58 Resp 17 12/06/24 11:58 BP 115/68 12/06/24 11:58 Pulse Ox 96 12/06/24 11:58 O2 Del Method Room Air 12/06/24 11:58 12/05/24 12/06/24 12/06/24 22:59 06:59 14:59 Intake Total 1300 / 1300 813.75 / 813.75 Output Total 1000 / 1000 300 / 300 Balance 300 / 300 513.75 / 513.75 Weight last 48 hrs Weight 181 lb 12.8 oz Weight 170 lb Weight 170 lb Physical Exam 2 Narrative: General: Patient is awake and alert. Very pleasant. Head: Normocephalic. Atraumatic. EOM intact. Neck: No JVD. Cardiovascular: RRR. No gallops. No murmurs. Lungs: Clear to auscultation, no use of accessory muscles, no crackles or wheezes. Skin: No jaundice. No rashes. Abdomen: Normal bowel sounds, abdomen soft and nontender. Transplanted parathyroid gland in abdomen. Musculoskeletal: No erythematous joints. Neurological: Moves all 4 extremities. Data 12/06/24 04:34 12/06/24 04:34 A&P Assessment and plan (1) Renal failure (ARF), acute on chronic: (2) Hypercalcemia: Plan (1) Renal failure (ARF), acute on chronic: (2) Hypercalcemia: (3) Insomnia: (4) HTN (hypertension): (5) Mixed hyperlipidemia: Plan Hypercalcemia History of hyperparathyroidism with recent third parathyroidectomy - continue fluids, monitor for overload - calcitonin - Hold off on bisphosphonate d/t renal function - Repeat labs - Nephrology consultation appreciated--> dialysis cathether Acute kidney injury on CKD stage IV - Start NS; d/w patient she has significant concern regarding development of fluid overload; she is ultimately agreeable to NS at 75 mL/hr for now Hyperlipidemia - Continue statin Hypertension - Continue metoprolol Insomnia - will hold temazepam for now DVT prophylaxis: Heparin CODE STATUS: Full code PDMP PDMP Reviewed: Not Reviewed Attestations 2 Medical Necessity Statement*: hypercalcemia, needs lab monitoring, ?HD Coding Level of Care Code Acute Code for Chg Fwd Diagnoses Renal failure (ARF), acute on chronic N17.9; N18.9 Acute renal failure type: unspecified Chronic kidney disease stage: unspecified stage Hypercalcemia E83.52
[2024-12-06] MEDS: FUROsemide 10 mg/mL SDV 10mL 60 MG IVP (13:22)
[2024-12-06 14:29] LABS: Hepatitis B Surface AB 6.3 (11.5-1000); Hepatitis B Surface Antigen Non-Reactive (Nonreactive)
--- NOTE | 2024-12-06 14:29 | PC.NURSE ---
Time out completed at 1441. Verified. Consents completed.
--- NOTE | 2024-12-06 14:56 | PC.NURSE ---
Procedure completed at 1458. Pt tolerates procedure well. No complications noted.
--- NOTE | 2024-12-06 15:05 | PM.CONSULT ---
Providers/Reason For Consult Consulting Physician/Specialty*: General Surgery Reason for Consult*: Need for dialysis catheter Attending Physician: Erik Dominguez MD Primary Care Provider: LOTUS Urban History of Present Illness History of Present Illness Alexandria Delgado is a 54 year old female Who is admitted to the hospital with hypercalcemia and exacerbation of her chronic kidney disease. She has been deemed a good candidate for dialysis I have been asked to place temporary dialysis catheter. Review of Systems General: Reports: 10 or more systems reviewed and unremarkable except in HPI and below Medications/Allergies Home Medications ?Medication ?Instructions ?Recorded ?Confirmed ?Last Taken ?Type atorvastatin 10 mg tablet 10 mg PO QPM #90 tabs 10/23/24 12/06/24 11/05/24 Rx metoprolol succinate 25 mg 25 mg PO BID #180 tabs 10/23/24 12/06/24 12/05/24 Rx tablet,extended release 24 hr temazepam 30 mg capsule 30 mg PO .HS #30 caps 10/23/24 12/06/24 12/05/24 Rx ergocalciferol (vitamin D2) 1,250 1,250 mcg PO Q7D 11/06/24 12/06/24 Unknown History mcg (50,000 unit) capsule escitalopram oxalate 20 mg tablet 20 mg PO DAILY 11/06/24 12/06/24 12/05/24 History potassium chloride 20 mEq 40 meq PO BID 11/06/24 12/06/24 12/05/24 History tablet,extended release(part/cryst) sodium bicarbonate 650 mg tablet 1,300 mg PO BID 11/06/24 12/06/24 12/05/24 History tamsulosin 0.4 mg capsule 0.4 mg PO DAILY 11/06/24 12/06/24 12/05/24 History calcitriol 0.25 mcg capsule 0.25 mcg PO TID 12/06/24 12/06/24 12/05/24 History Allergies Allergy/AdvReac Type Severity Reaction Status Date / Time clindamycin Allergy Unknown ALGY-Rash Verified 12/05/24 18:59 diphenhydramine (From Allergy Unknown Unknown Verified 12/05/24 18:59 Benadryl) ferumoxytol (From Feraheme) Allergy Unknown Unknown Verified 12/05/24 18:59 flurbiprofen (From Ansaid) Allergy Unknown Unknown Verified 12/05/24 18:59 Current Medications Generic Name Dose Route Start Last Admin Trade Name Freq PRN Reason Stop Dose Admin Acetaminophen 650 mg 12/05/24 22:18 12/05/24 23:17 Acetaminophen 325 Mg Tablet PO 650 mg Q6H PRN Administration Mild/Mod Pain Or Temp >/= 101 Calcitonin [place] 300 unit 12/05/24 22:18 12/06/24 08:19 Calcitonin,[place] 200 Unit/Ml Sdv 2ml SUBCUT 300 unit BID@0900,2100 TYRON Administration Heparin Sodium (Porcine) 5,000 unit 12/05/24 22:18 12/06/24 08:18 Heparin 5,000 Unit/Ml Inj 1 Ml SUBCUT 5,000 unit BID@0900,2100 TYRON Administration Sodium Chloride 1,000 mls @ 150 mls/hr 12/05/24 22:18 12/06/24 10:39 Sodium Chloride 0.9% IV 75 mls/hr .Q6H40M TYRON Administration Metoprolol Succinate 25 mg 12/06/24 09:00 12/06/24 08:18 Metoprolol Succinate Er (24 Hr) 25 Mg Tablet PO 25 mg BID TYRON Administration Oxycodone HCl 5 mg 12/05/24 22:18 12/06/24 08:17 Oxycodone 5 Mg Ir Tab/Cap PO 5 mg Q4H PRN Administration pain Tamsulosin HCl 0.4 mg 12/06/24 09:00 12/06/24 08:18 Tamsulosin 0.4 Mg Capsule PO 0.4 mg DAILY TYRON Administration Temazepam 30 mg 12/05/24 22:30 12/05/24 23:12 Temazepam 15 Mg Capsule PO 30 mg BEDTIME TYRON Administration PFSH Acute PFSH: Medical History Abnormal nuclear stress test Atypical chest pain Hyperparathyroidism , secondary, non-renal History of gastritis Thyroid nodule Chronic nonspecific colitis History of Clostridioides difficile colitis Chronic hypokalemia Chronic iron deficiency anemia Herpes simplex virus (HSV) infection CKD (chronic kidney disease) stage 4, GFR 15-29 ml/min Gastric reflux Gastritis, hiatal hernia per patient IBS (irritable bowel syndrome) Slow transit constipation Mixed hyperlipidemia Gout, unspecified Surgical History History of vascular surgery bilat arms History of endometrial ablation History of tubal ligation History of parathyroidectomy History of cholecystectomy History of tonsillectomy History of section Family History Grandfather CAD (coronary artery disease) Has some heart problems. Details are not available. Other Diabetes Hyperlipidemia Hypertension Social History Smoking and tobacco/nicotine status: former use of tobacco/nicotine Second hand smoke exposure: No Alcohol intake: unknown Substance/Drug Use: never Adopted: No Caregiver/support person: No Lives independently: Yes Household members: significant other Housing: House Marital status: Number of children: 3 service: No Current occupational status: disabled Do you think of yourself as: Straight/Heterosexual Current gender identity: Female Vitals/I&O/Wt Last Vital Signs Temp 98.5 F 12/06/24 11:58 Pulse 68 12/06/24 15:02 Resp 18 12/06/24 15:02 BP 148/95 12/06/24 15:02 Pulse Ox 97 12/06/24 15:02 O2 Del Method Room Air 12/06/24 15:02 12/06/24 12/06/24 12/06/24 06:59 14:59 22:59 Intake Total 1300 / 1300 813.75 / 813.75 Output Total 1000 / 1000 300 / 300 Balance 300 / 300 513.75 / 513.75 Weight last 48 hrs Weight 181 lb 12.8 oz Weight 170 lb Weight 170 lb Physical Exam GI: OTHER: Abdomen soft nontender nondistended. Bilateral Groin examination is normal Data 12/06/24 04:34 12/06/24 04:34 A&P Assessment and plan (1) CKD (chronic kidney disease) stage 4, GFR 15-29 ml/min: (2) Hypercalcemia: Plan After complete history, physical examination and review of all available clinical data I decided to offer the patient a temporary dialysis catheter. I selected the right groin as the best area for access, ultrasound visualization of the right femoral vein was adequate. I discussed the risks of bleeding, infection, catheter malfunction, need for additional procedures, injury to surrounding structures, hematoma formation, catheter occlusion. Patient shows understanding agrees to proceed. After consent was obtained and a timeout conducted I proceeded to place the right groin temporary dialysis catheter. Catheter was patent and working well after the procedure. Is cleared to be used for dialysis. PDMP PDMP Reviewed: Not Reviewed Coding Level of Care Code Acute Code for Chg Fwd Diagnoses CKD (chronic kidney disease) stage 4, GFR 15-29 ml/min N18.4 Hypercalcemia E83.52
--- NOTE | 2024-12-06 15:08 | PM.ACPR ---
Procedure/Consent Time out: Time Out Performed: Yes Consent: Consent for Procedure: Consent obtained from patient, Risks & Benefits reviewed and Agrees to proceed with procedure Procedure Narrative: With the patient in a supine position the right groin was prepped and draped in the usual sterile fashion and a timeout was conducted. The right femoral vein was identified with ultrasound, I then cannulated the right femoral vein with an 18-gauge needle under direct visualization. Previous to cannulation local anesthesia was infiltrated in the skin. A wire was advanced into the vein and the needle was removed. The wire position was verified with ultrasound. I then make 0.5 cm incision at the level of the wire insertion site. The tract was then dilated with serial sizes of dilators and I then proceeded to advance a [address] [place] dual-lumen dialysis catheter over the wire. Once the catheter had been completely advanced the wire was removed. Both lumens of the catheter were tested and the catheter was working fine. Catheter was fixed with #3-0 silk to the skin. A Biopatch and sterile dressing was applied. At the end of the procedure counts were correct the patient tolerated well the procedure remained in the medical vargas. Acute Procedures Epistaxis Control: Time out performed: Yes
--- NOTE | 2024-12-06 15:51 | PC.HD ---
Patient c/o 05/11 pain at temporary femoral HD catheter access site. Patient requested pain medication immediately prior to HD treatment. Patient was advised by this RN that dialysis will wash out the pain medication and it will be less effective for a shorter amount of time. Patient given the option of either receiving the pain medication prior to HD or attempting to wait in order to achieve better efficacy of pain medication. Patient at this time has decided to wait to receive pain medication. Patient advised that pain medication would be given whenever she decided to request it.
--- NOTE | 2024-12-06 16:54 | PC.NURSE ---
Anneliese, dialysis nurse, requests pain medication not be administered d/t dialysis. Pt is tearful and in a lot of pain where temp cath placed. Alexandria states she is scared for medication to be dialyzed out. This RN looks up dialyzable drugs which includes: barbituates, lithium, isoniazid, salicylates, theophyline/caffeine, methanol, metformin, ehylene glycol, depakote, dabigatran, and carbamezepine. Opiates are not on the easily dialyzable list. RN administers pain medication. RN explains that if half life is shortened due to dialysis, we can speak to doctor about options. Patient thankful for medication administration.
--- NOTE | 2024-12-06 18:19 | PC.NURSE ---
Significant pain improvement from 10/10 to 4-5/10 pain noted during rounds.
--- NOTE | 2024-12-06 18:52 | PC.HD ---
New temporary R femoral HD catheter: Very difficult to draw from arterial port. Lines affixed in reverse configuration. Prescribed blood flow rate 350 mL/minute. Unable to run treatment at prescribed rate due to machine A/P pressures >250. Blood flow rate lowered per protocol. Attempted to reposition patient with no change noted. As treatment progressed, AP alarmed more frequently, and this RN was forced to continue lowering blood flow rate. Minimum allowed blood flow rate of 250 did not alleviate machine A/P pressures spiking and alarming. With 14 minutes remaining of the treatment, Dr. Reynolds advised this RN to terminate treatment early, as the reduced blood flow rate was causing imminent clotting of circuit and this RN did not want patient to lose all the blood in the circuit before rinsing it back. Blood was rinsed back to patient. Catheter flushed, instilled with heparin, and capped.
[2024-12-06] MEDS: ATORVASTATIN 10 MG TABLET PO (20:53)
[2024-12-06] MEDS: temazepam 15 mg Capsule 30 MG PO (20:53)
[2024-12-07] VITALS (7 sets, daily range): BP systolic 91–109; BP diastolic 52–75; PULSE 58–73; RESP 14–18; TEMP 36.7–36.8; O2SAT 94–97
[2024-12-07 06:26] LABS: Basophils # 0.1 10^3/uL (0.0-0.1); Eosinophils # 0.2 10^3/uL (0.0-0.8); Eosinophils % 2.7 %; Hematocrit 33.5 % (36-47); Lymphocytes # 1.4 10^3/uL (0.8-4.8); Lymphocytes % 20.4 %; Mean Corpuscular HGB Conc 30.7 g/dL (30-55); Mean Corpuscular Hemoglobin 29.7 pg (27-33); Mean Corpuscular Volume 96.5 fl (85-98); Mean Platelet Volume 9.5 fL (7.4-10.4); Monocytes # 0.6 10^3/uL (0.2-0.9); Monocytes % 8.7 %; Neutrophils # 4.64 10^3/uL (1.8-7.7); Neutrophils % 67.1 %; Nucleated Red Blood Cells % 0 %; Platelet Count 230 10^3/cmm (157-399); Red Blood Count 3.47 10^6/uL (3.85-5.65); Red Cell Distribution Width 12.7 % (12.1-15.1); White Blood Count 6.92 10^3/uL (3.29-11.43)
[2024-12-07 06:48] LABS: Alanine Aminotransferase 18 U/L (0-33); Albumin Level 3.3 g/dL (3.5-5.2); Alkaline Phosphatase 71 U/L (35-105); Aspartate Amino Transferase 18 U/L (0-32); Blood Urea Nitrogen 31 mg/dL (6-20); Calcium 10.9 mg/dL (8.5-10.5); Carbon Dioxide 25 mmol/L (22-29); Chloride 103 mmol/L (98-107); Creatinine Clr Calc Pharmacy 12.7807; Globulin 2.9 g/dL (1.3-4.6); Glomerular Filtration Rate 8.5 mL/min (90-130); Glucose 86 mg/dL (65-115); Osmolality Calculated 298 mOsm/kg (285-295); Sodium 141 mmol/L (136-145); Total Bilirubin 0.3 mg/dL (0.15-1.2); Total Protein 6.2 g/dL (6.6-8.7)
[2024-12-07] MEDS: metoprolol succinate ER (24 HR) 25 mg Tablet PO ×2 (08:30→17:04)
[2024-12-07] MEDS: heparin 5,000 unit/mL INJ 1 mL 5000 UNIT SUBCUT ×2 (08:30→20:55)
[2024-12-07] MEDS: tamsulosin 0.4 mg Capsule PO (08:30)
[2024-12-07] MEDS: calcitonin,salmon 200 unit/mL SDV 2mL 300 UNIT SUBCUT ×2 (08:30→20:55)
--- NOTE | 2024-12-07 09:04 | PM.PN ---
Subjective Subjective: no new c/o s/p HD yesterday Medications: Reviewed: Yes Vitals/I&O/Wt Last Vital Signs Temp 98.3 F 12/07/24 07:49 Pulse 69 12/07/24 07:49 Resp 18 12/07/24 07:49 BP 96/60 12/07/24 07:49 Pulse Ox 96 12/07/24 07:49 O2 Del Method Room Air 12/07/24 07:49 12/06/24 12/07/24 12/07/24 22:59 06:59 14:59 Intake Total 846.25 / 1660.00 Output Total 3041 / 3341 300 / 3641 Balance -2194.75 / -1681.00 -300 / -1981.00 Weight last 48 hrs Weight 79.379 kg Weight 81.1 kg Weight 82.463 kg Weight 77.111 kg Weight 77.111 kg Physical Exam Narrative: awake , alert On room air PEERLA S1S2 RRR per report Lungs clear per report No edema Data 12/07/24 06:19 12/07/24 06:19 A&P Assessment and plan (1) Hypercalcemia: 1. Acute on chronic kidney disease stage III: Baseline creatinine is in the mid 3 range and renal function had been getting worse and now has severe DOMENIC with a creatinine of 7.5, unable to tolerate aggressive IV fluid resuscitation due to shortness of breath and volume overload. DOMENIC likely contributed from severe hypercalcemia and decreased p.o. intake - s/p temporary HD catheter placement and s/p HD yesterday , hold off HD today - Monitor renal function closely 2. Severe hypercalcemia: Patient with extensive history of hyperparathyroidism with 3 parathyroid glands removed, last removal in October 2024-patient had postoperative severe hypocalcemia and was started on aggressive calcium supplementation with calcitriol, calcium carbonate and vitamin D. Now patient has severe hypercalcemia in the setting of DOMENIC. Holding all calcium supplements and vitamin D for now, check calcium levels daily, repeat PTH,-appropriately suppressed (PTH was 6 on 12/05/2024). - Agree with calcitonin, avoid bisphosphonates - HD as above -Repeat PTH 3. Anemia:, Will check iron studies and may require LUIS ENRIQUE 4. Hypertension: On metoprolol Patient evaluated using audiovisual cart. Time spent 40 minutes. (2) Renal failure (ARF), acute on chronic: PDMP PDMP Reviewed: Not Reviewed Attestations Medical Necessity Statement*: per [facility] Coding Level of Care Code Acute Code for Chg Fwd Diagnoses Hypercalcemia E83.52 Renal failure (ARF), acute on chronic N17.9; N18.9 Acute renal failure type: unspecified Chronic kidney disease stage: unspecified stage
--- NOTE | 2024-12-07 10:01 | PC.CHAP ---
Pastoral Care Encounter/Spiritual Assessment Type of Contact [] Declined solid state tester visit [] Patient/Family/Request visit [] Outpatient visit [] Follow-up visit [] Physician referral [] Code/Alert [x] Routine visit [] Staff referral [] Actively dying [] Patient sleeping [] Family support [] [] Out of room [] Palliative care [] [] Receiving care in room [] Pre-surgical visit [] Trauma [] Long length of stay [] ICU visit [] Other: Relational/Emotional Strength [] Patient feels connected with others/family/visitors/staff [] Distress [] Loneliness/isolation [] Abandonment Spirituality of Patient [x] Person of Viktoria [] Attends Buddhism of their [place]toria [x] Believes in Prayer [] Reads Bible or Latter-Day materials [] There are Spiritual issues to be addressed Anger Control Counselor Interventions [x] Prayer [x] Active listening [] Non-anxious presence [] Spiritual/emotional support [] Crisis/trauma care [] Spiritual counseling [] Bereavement support [] Provided bereavement packet [x] Provided Bible/devotional materials [] Provided toy/stuffed animal, coloring book to patient or family member [] Provided Communion [] Anointing/Wellman [] Salvation [x] Completed spiritual assessment [] Other: Impact on Illness or Injury [] Angry [] Fearful [] Anxious [] Often cries [] Exhaustion [] Unable to work [] Unable to attend mu-ism [] Unable to walk/stand [] Unable to read [] Unable to drive [] Unable to eat/drink [] Unable to sleep [] Unable to be with family [] Patient intubated [] Other: Summary Time spent with patient 5 min
--- NOTE | 2024-12-07 11:04 | P.PN_ITS ---
Subjective 2 Subjective: No acute events overnight. Patient seen at her bedside and has no new complaints. Shortness of breath is improved. Vitals/I&O/Wt Last Vital Signs Temp 98.3 F 12/07/24 07:49 Pulse 69 12/07/24 07:49 Resp 18 12/07/24 07:49 BP 96/60 12/07/24 07:49 Pulse Ox 96 12/07/24 07:49 O2 Del Method Room Air 12/07/24 07:49 12/06/24 12/07/24 12/07/24 22:59 06:59 14:59 Intake Total 846.25 / 1660.00 120 / 120 Output Total 3041 / 3341 300 / 3641 Balance -2194.75 / -1681.00 -300 / -1981.00 120 / 120 Weight last 48 hrs Weight 79.379 kg Weight 81.1 kg Weight 82.463 kg Weight 77.111 kg Weight 77.111 kg Physical Exam 2 Narrative: General: Awake, alert, no acute distress Head: Normocephalic. Atraumatic. EOM intact. Neck: No JVD. Cardiovascular: S1, S2 RRR. No gallops. No murmurs. Lungs: Clear to auscultation, no wheezes or crackles Skin: No jaundice. No rashes. Abdomen: Normal bowel sounds, abdomen soft and nontender. Extremities: No pedal edema Neurological: No focal deficits Data 12/07/24 06:19 12/07/24 06:19 A&P Assessment and plan (1) Renal failure (ARF), acute on chronic: (2) Hypercalcemia: Plan (1) Renal failure (ARF), acute on chronic: (2) Hypercalcemia: (3) Insomnia: (4) HTN (hypertension): (5) Mixed hyperlipidemia: # Severe hypercalcemia -In the setting of history of hyperparathyroidism with recent third parathyroidectomy -She had hypocalcemia after recent surgery in October 2024 and received aggressive calcium supplementation will Calcitrol, calcium carbonate, vitamin D -Avoiding bisphosphonates due to DOMENIC -Continue calcitonin #Acute kidney injury on CKD stage IV -Urology following, hemodialysis initiated yesterday -Patient to have another session of dialysis tomorrow #Hyperlipidemia - Continue statin #Hypertension - Continue metoprolol #Insomnia - will hold temazepam for now DVT prophylaxis: Heparin CODE STATUS: Full code PDMP PDMP Reviewed: Not Reviewed Attestations 2 Medical Necessity Statement*: Patient with hypercalcemia, acute kidney injury requiring temporary hemodialysis Coding Level of Care Code Acute Code for Chg Fwd Diagnoses Renal failure (ARF), acute on chronic N17.9; N18.9 Acute renal failure type: unspecified Chronic kidney disease stage: unspecified stage Hypercalcemia E83.52
[2024-12-07] MEDS: ATORVASTATIN 10 MG TABLET PO (17:04)
[2024-12-07] MEDS: temazepam 15 mg Capsule 30 MG PO (20:55)
[2024-12-07] MEDS: oxyCODONE 5 mg IR Tab/Cap PO (20:55)
[2024-12-08] VITALS: BP 95/55; PULSE 66; RESP 16; TEMP 36.8; O2SAT 96
[2024-12-08 04:00] VITALS: BP 121/70; PULSE 61; RESP 18; TEMP 36.8; O2SAT 95
[2024-12-08 05:08] LABS: Basophils # 0.1 10^3/uL (0.0-0.1); Basophils % 1.1 %; Eosinophils # 0.3 10^3/uL (0.0-0.8); Eosinophils % 4.2 %; Hematocrit 33.9 % (36-47); Lymphocytes % 27.5 %; Mean Corpuscular Hemoglobin 30.2 pg (27-33); Mean Corpuscular Volume 97.4 fl (85-98); Mean Platelet Volume 9.4 fL (7.4-10.4); Monocytes # 0.7 10^3/uL (0.2-0.9); Monocytes % 9.1 %; Neutrophils # 4.12 10^3/uL (1.8-7.7); Neutrophils % 57.8 %; Nucleated Red Blood Cells % 0 %; Platelet Count 233 10^3/cmm (157-399); Red Blood Count 3.48 10^6/uL (3.85-5.65); Red Cell Distribution Width 12.8 % (12.1-15.1); White Blood Count 7.13 10^3/uL (3.29-11.43)
[2024-12-08 05:33] LABS: Alanine Aminotransferase 16 U/L (0-33); Albumin Level 3.4 g/dL (3.5-5.2); Alkaline Phosphatase 73 U/L (35-105); Aspartate Amino Transferase 13 U/L (0-32); Blood Urea Nitrogen 41 mg/dL (6-20); Calcium 10.5 mg/dL (8.5-10.5); Carbon Dioxide 23 mmol/L (22-29); Chloride 103 mmol/L (98-107); Creatinine Clr Calc Pharmacy 11.2896; Globulin 2.8 g/dL (1.3-4.6); Glomerular Filtration Rate 7.3 mL/min (90-130); Glucose 72 mg/dL (65-115); Osmolality Calculated 297 mOsm/kg (285-295); Sodium 139 mmol/L (136-145); Total Bilirubin 0.3 mg/dL (0.15-1.2); Total Protein 6.2 g/dL (6.6-8.7)
[2024-12-08 07:55] VITALS: BP 102/58; PULSE 66; RESP 16; TEMP 36.9; O2SAT 93
[2024-12-08] MEDS: metoprolol succinate ER (24 HR) 25 mg Tablet PO ×2 (09:23→16:46)
[2024-12-08] MEDS: tamsulosin 0.4 mg Capsule PO (09:23)
[2024-12-08] MEDS: heparin 5,000 unit/mL INJ 1 mL 5000 UNIT SUBCUT ×2 (09:25→20:48)
[2024-12-08] MEDS: calcitonin,salmon 200 unit/mL SDV 2mL 300 UNIT SUBCUT ×2 (09:25→20:48)
--- NOTE | 2024-12-08 11:07 | PM.PN ---
Subjective Subjective: no new c/o Medications: Reviewed: Yes Vitals/I&O/Wt Last Vital Signs Temp 98.5 F 12/08/24 07:55 Pulse 66 12/08/24 07:55 Resp 16 12/08/24 07:55 BP 102/58 12/08/24 07:55 Pulse Ox 93 12/08/24 07:55 O2 Del Method Room Air 12/08/24 07:55 12/07/24 12/08/24 12/08/24 22:59 06:59 14:59 Intake Total 740 / 1460 120 / 120 Output Total 400 / 600 Balance 340 / 860 120 / 120 Weight last 48 hrs Weight 79.379 kg Weight 81.1 kg Physical Exam Narrative: awake , alert On room air PEERLA S1S2 RRR per report Lungs clear per report No edema Data 12/08/24 04:39 12/08/24 04:39 A&P Assessment and plan (1) Hypercalcemia: 1. Acute on chronic kidney disease stage III: Baseline creatinine is in the mid 3 range and renal function had been getting worse and now has severe DOMENIC with a creatinine of 7.5, unable to tolerate aggressive IV fluid resuscitation due to shortness of breath and volume overload. DOMENIC likely contributed from severe hypercalcemia and decreased p.o. intake - s/p temporary HD catheter placement , HD x 1 sessions , monitor with out HD for another day, if Cr keeps rising , will need to place Tunnelled catheter for continuation of HD - Monitor renal function closely 2. Severe hypercalcemia: Patient with extensive history of hyperparathyroidism with 3 parathyroid glands removed, last removal in October 2024-patient had postoperative severe hypocalcemia and was started on aggressive calcium supplementation with calcitriol, calcium carbonate and vitamin D. Now patient has severe hypercalcemia in the setting of DOMENIC. Holding all calcium supplements and vitamin D for now, check calcium levels daily, repeat PTH,-appropriately suppressed (PTH was 6 on 12/05/2024). - Agree with calcitonin, avoid bisphosphonates - HD as above -Repeat PTH 3. Anemia:, Will check iron studies and may require LUIS ENRIQUE 4. Hypertension: On metoprolol Patient evaluated using audiovisual cart. Time spent 40 minutes. (2) Renal failure (ARF), acute on chronic: PDMP PDMP Reviewed: Not Reviewed Attestations Medical Necessity Statement*: per [facility] [place] Coding Level of Care Code Acute Code for Chg Fwd Diagnoses Hypercalcemia E83.52 Renal failure (ARF), acute on chronic N17.9; N18.9 Acute renal failure type: unspecified Chronic kidney disease stage: unspecified stage
[2024-12-08 11:52] VITALS: BP 105/67; PULSE 69; RESP 16; TEMP 36.6; O2SAT 93
--- NOTE | 2024-12-08 11:57 | P.PN_ITS ---
Subjective 2 Subjective: No acute events overnight. Patient seen at the bedside and has no new complaints today. She denies worsening shortness of breath Medications: Reviewed: Yes Vitals/I&O/Wt Last Vital Signs Temp 97.9 F 12/08/24 11:52 Pulse 69 12/08/24 11:52 Resp 16 12/08/24 11:52 BP 105/67 12/08/24 11:52 Pulse Ox 93 12/08/24 11:52 O2 Del Method Room Air 12/08/24 11:52 12/07/24 12/08/24 12/08/24 22:59 06:59 14:59 Intake Total 740 / 1460 120 / 120 Output Total 400 / 600 Balance 340 / 860 120 / 120 Weight last 48 hrs Weight 79.379 kg Weight 81.1 kg Physical Exam 2 Narrative: General: Awake, alert, no acute distress Head: Normocephalic. Atraumatic. EOM intact. Neck: No JVD. Cardiovascular: S1, S2 RRR. No gallops. No murmurs. Lungs: Clear to auscultation, no wheezes or crackles Skin: No jaundice. No rashes. Abdomen: Normal bowel sounds, abdomen soft and nontender. Extremities: No pedal edema Neurological: No focal deficits Data 12/08/24 04:39 12/08/24 04:39 A&P Assessment and plan (1) Renal failure (ARF), acute on chronic: (2) Hypercalcemia: Plan (1) Renal failure (ARF), acute on chronic: (2) Hypercalcemia: (3) Insomnia: (4) HTN (hypertension): (5) Mixed hyperlipidemia: # Severe hypercalcemia -In the setting of history of hyperparathyroidism with recent third parathyroidectomy -She had hypocalcemia after recent surgery in October 2024 and received aggressive calcium supplementation with Calcitrol, calcium carbonate, vitamin D -Avoiding bisphosphonates due to DOMENIC -Continue calcitonin - Urology following, hemodialysis initiated #Acute kidney injury on CKD stage IV -Urology following, hemodialysis initiated -Patient to have another session of dialysis tomorrow as appropriate - Patient may need outpatient hemodialysis #Hyperlipidemia - Continue statin #Hypertension - Continue metoprolol #Insomnia -Continue temazepam DVT prophylaxis: Heparin PDMP PDMP Reviewed: Not Reviewed Attestations 2 Medical Necessity Statement*: Patient with hypercalcemia, acute kidney injury requiring temporary hemodialysis Coding Level of Care Code Acute Code for Chg Fwd Diagnoses Renal failure (ARF), acute on chronic N17.9; N18.9 Acute renal failure type: unspecified Chronic kidney disease stage: unspecified stage Hypercalcemia E83.52
[2024-12-08 15:55] VITALS: BP 107/67; PULSE 71; RESP 17; TEMP 36.9; O2SAT 94
[2024-12-08] MEDS: acetaminophen 325 mg Tablet 650 MG PO (16:11)
[2024-12-08] MEDS: calcium carbonate 500 mg Chew Tablet 1000 MG PO ×2 (16:11→20:52)
[2024-12-08] MEDS: ATORVASTATIN 10 MG TABLET PO (16:46)
--- NOTE | 2024-12-08 16:47 | PC.NURSE ---
pt iv was pulled out, pt requested it to stay out. dr. sharp okayed it to stay as pt is not receiving anything via iv.
[2024-12-08 19:47] VITALS: BP 100/61; PULSE 60; RESP 18; TEMP 36.4; O2SAT 94
[2024-12-08] MEDS: temazepam 15 mg Capsule 30 MG PO (20:48)
[2024-12-09] VITALS (10 sets, daily range): BP systolic 101–117; BP diastolic 61–74; PULSE 58–68; RESP 14–17; TEMP 36.1–36.7; O2SAT 94–97
[2024-12-09 04:47] LABS: Albumin Level 3.4 g/dL (3.5-5.2); Blood Urea Nitrogen 55 mg/dL (6-20); Calcium 10.9 mg/dL (8.5-10.5); Carbon Dioxide 19 mmol/L (22-29); Chloride 103 mmol/L (98-107); Creatinine Clr Calc Pharmacy 11.2896; Glomerular Filtration Rate 7.3 mL/min (90-130); Glucose 85 mg/dL (65-115); Phosphorus 4.8 mg/dL (2.5-4.5); Sodium 139 mmol/L (136-145)
--- NOTE | 2024-12-09 07:32 | P.PN_ITS ---
Subjective 2 Subjective: no new c/o UOP not documented Medications: Reviewed: Yes Vitals/I&O/Wt Last Vital Signs Temp 98.0 F 12/09/24 04:00 Pulse 59 L 12/09/24 06:45 Resp 17 12/09/24 04:00 BP 101/61 12/09/24 04:00 Pulse Ox 96 12/09/24 04:00 O2 Del Method Room Air 12/09/24 04:00 12/08/24 12/09/24 12/09/24 22:59 06:59 14:59 Intake Total 360 / 720 Output Total 700 / 700 Balance 360 / 720 -700 / -700 Weight last 48 hrs Weight 81.329 kg Physical Exam 2 Narrative: awake , alert On room air PEERLA S1S2 RRR per report Lungs clear per report No edema Data 12/08/24 04:39 12/09/24 03:54 A&P Assessment and plan (1) Hypercalcemia: 1. Acute on chronic kidney disease stage III: Baseline creatinine is in the mid 3 range and renal function had been getting worse and now has severe DOMENIC with a creatinine of 7.5, unable to tolerate aggressive IV fluid resuscitation due to shortness of breath and volume overload. DOMENIC likely contributed from severe hypercalcemia and decreased p.o. intake - s/p temporary HD catheter placement , HD x 1 sessions , Cr plateaud today , will watch another 24-48 hours with out HD and make decision re : HD -Noted rise in Ca 2. Severe hypercalcemia: Patient with extensive history of hyperparathyroidism with 3 parathyroid glands removed, last removal in October 2024-patient had postoperative severe hypocalcemia and was started on aggressive calcium supplementation with calcitriol, calcium carbonate and vitamin D. Now patient has severe hypercalcemia in the setting of DOMENIC. Holding all calcium supplements and vitamin D for now, check calcium levels daily, repeat PTH,-appropriately suppressed (PTH was 6 on 12/05/2024). - Agree with calcitonin, avoid bisphosphonates -Ca rising , was getting Calcitriol- dcd , monitor , if ca keeps rising , will start package checker HD -Need to follow with out pt Endocrinology closely 3. Anemia:, Will check iron studies and may require LUIS ENRIQUE 4. Hypertension: On metoprolol Patient evaluated using audiovisual cart. Time spent 40 minutes. (2) Renal failure (ARF), acute on chronic: PDMP PDMP Reviewed: Not Reviewed Attestations 2 Medical Necessity Statement*: per [facility] Coding Level of Care Code Acute Code for Chg Fwd Diagnoses Hypercalcemia E83.52 Renal failure (ARF), acute on chronic N17.9; N18.9 Acute renal failure type: unspecified Chronic kidney disease stage: unspecified stage
[2024-12-09] MEDS: heparin 5,000 unit/mL INJ 1 mL 5000 UNIT SUBCUT ×2 (09:34→19:52)
[2024-12-09] MEDS: metoprolol succinate ER (24 HR) 25 mg Tablet PO ×2 (09:35→18:14)
[2024-12-09] MEDS: tamsulosin 0.4 mg Capsule PO (09:35)
[2024-12-09] MEDS: oxyCODONE 5 mg IR Tab/Cap PO ×3 (09:40→19:53)
--- NOTE | 2024-12-09 11:05 | P.PN_ITS ---
Subjective 2 Subjective: No acute events overnight. Patient seen at the bedside and has no new complaints today. She denies worsening shortness of breath. Medications: Reviewed: Yes Vitals/I&O/Wt Last Vital Signs Temp 97.0 F L 12/09/24 08:00 Pulse 68 12/09/24 08:00 Resp 15 12/09/24 09:40 BP 117/69 12/09/24 08:00 Pulse Ox 94 12/09/24 08:00 O2 Del Method Room Air 12/09/24 08:00 12/08/24 12/09/24 12/09/24 22:59 06:59 14:59 Intake Total 360 / 720 240 / 240 Output Total 950 / 950 Balance 360 / 720 -710 / -710 Weight last 48 hrs Weight 81.329 kg Physical Exam 2 Narrative: General: Awake, alert, no acute distress Head: Normocephalic. Atraumatic. EOM intact. Neck: No JVD. Cardiovascular: S1, S2 RRR. No gallops. No murmurs. Lungs: Clear to auscultation, no wheezes or crackles Skin: No jaundice. No rashes. Abdomen: Normal bowel sounds, abdomen soft and nontender. Extremities: No pedal edema Neurological: No focal deficits Data 12/08/24 04:39 12/09/24 03:54 A&P Assessment and plan (1) Renal failure (ARF), acute on chronic: (2) Hypercalcemia: Plan (1) Renal failure (ARF), acute on chronic: (2) Hypercalcemia: (3) Insomnia: (4) HTN (hypertension): (5) Mixed hyperlipidemia: # Severe hypercalcemia -In the setting of history of hyperparathyroidism with recent third parathyroidectomy -She had hypocalcemia after recent surgery in October 2024 and received aggressive calcium supplementation with Calcitrol, calcium carbonate, vitamin D -Avoiding bisphosphonates due to DOMENIC -Continue calcitonin - Urology following, hemodialysis initiated #Acute kidney injury on CKD stage IV -Urology following, hemodialysis initiated -Nephrology following to evaluate need for further hemodialysis, chest - Patient may need outpatient hemodialysis #Hyperlipidemia - Continue statin #Hypertension - Continue metoprolol #Insomnia -Continue temazepam DVT prophylaxis: Heparin PDMP PDMP Reviewed: Not Reviewed Attestations 2 Medical Necessity Statement*: Patient with hypercalcemia, acute kidney injury requiring temporary hemodialysis Coding Level of Care Code Acute Code for Chg Fwd Diagnoses Renal failure (ARF), acute on chronic N17.9; N18.9 Acute renal failure type: unspecified Chronic kidney disease stage: unspecified stage Hypercalcemia E83.52
[2024-12-09] MEDS: ATORVASTATIN 10 MG TABLET PO (18:14)
[2024-12-09] MEDS: temazepam 15 mg Capsule 30 MG PO (19:52)
[2024-12-09 20:20] LABS: Bilirubin Urine Negative (Negative); Blood Urine Trace (Negative); Glucose Urine UA Negative (Normal); Ketones Urine Negative (Negative); Leukocyte Esterase Urine Trace (Negative); Nitrate Urine Negative (Negative); Protein Urine 1+ (Negative); Specific Gravity, Urine 1.008 (1.005-1.030); Urine Appearance Clear (CLEAR); Urine Color Yellow (Yellow); Urobilinogen Urine 0.2 mg/dL (Negative)
[2024-12-09 20:25] LABS: Add Urine Microscopic? YES; Bacteria Urine None Seen /hpf; Hyaline Casts Urine 0-4 /lpf; RBC Urine 0-2 /hpf (0-2); Squamous Epithelial Cell Urine 0-5 /hpf (0-5); WBC Urine 0-5 /hpf (0-5)
[2024-12-10] VITALS (9 sets, daily range): BP systolic 88–117; BP diastolic 48–75; PULSE 55–76; RESP 15–18; TEMP 36.4–36.7; O2SAT 95–98
[2024-12-10 05:45] LABS: Albumin Level 3.4 g/dL (3.5-5.2); Anion Gap 20.8 (5-19); Blood Urea Nitrogen 64 mg/dL (6-20); Calcium 10.7 mg/dL (8.5-10.5); Carbon Dioxide 19 mmol/L (22-29); Chloride 103 mmol/L (98-107); Creatinine Clr Calc Pharmacy 10.8703; Glomerular Filtration Rate 6.9 mL/min (90-130); Glucose 97 mg/dL (65-115); Phosphorus 5.1 mg/dL (2.5-4.5); Potassium 3.8 mmol/L (3.5-5.1); Sodium 139 mmol/L (136-145)
[2024-12-10] MEDS: heparin 5,000 unit/mL INJ 1 mL 5000 UNIT SUBCUT ×2 (07:42→20:26)
[2024-12-10] MEDS: metoprolol succinate ER (24 HR) 25 mg Tablet PO (07:42)
[2024-12-10] MEDS: tamsulosin 0.4 mg Capsule PO (07:42)
[2024-12-10] MEDS: oxyCODONE 5 mg IR Tab/Cap PO ×3 (07:49→20:26)
--- NOTE | 2024-12-10 08:19 | P.PN_ITS ---
Subjective 2 Subjective: The patient was seen and examined. She complains of some headaches. Appetite is improving. She would like to try to avoid dialysis. She has no nausea vomiting shortness of breath chest pain, itching diarrhea or leg pains. Denies abdominal pains. Medications: Reviewed: Yes Medication Review Details: Current Medications Acetaminophen (Acetaminophen 325 Mg Tablet) 650 mg PO Q6H PRN PRN Reason: Mild/Mod Pain Or Temp >/= 101 Last Admin: 12/08/24 16:11 Dose: 650 mg Atorvastatin Calcium (Atorvastatin 10 Mg Tablet) 10 mg PO QPM [facility] Last Admin: 12/09/24 18:14 Dose: 10 mg Heparin Sodium (Porcine) (Heparin 5,000 Unit/Ml Inj 1 Ml) 5,000 unit SUBCUT BID@0900,2100 [facility] Last Admin: 12/10/24 07:42 Dose: 5,000 unit Hydralazine HCl (Hydralazine 20 Mg/Ml Inj 1 Ml) 10 mg IVP Q4H PRN PRN Reason: SBP>180mmHg or DBP>110mmHG Sodium Chloride (Sodium Chloride 0.9%) 1,000 mls @ 0 mls/hr IV .Q0M PRN PRN Reason: hypotension or symptomatic Albumin Human (Albumin) 12.5 gm in 50 mls @ 60 mls/hr IV PRN PRN PRN Reason: Hypotension and/or symptomatic Metoprolol Succinate (Metoprolol Succinate Er (24 Hr) 25 Mg Tablet) 25 mg PO BID [facility] Last Admin: 12/10/24 07:42 Dose: 25 mg Ondansetron HCl (Ondansetron 2 Mg/Ml Sdv 2 Ml) 4 mg IVP Q8H PRN PRN Reason: vomiting, or N/V if npo Oxycodone HCl (Oxycodone 5 Mg Ir Tab/Cap) 5 mg PO Q4H PRN PRN Reason: pain Last Admin: 12/10/24 07:49 Dose: 5 mg Tamsulosin HCl (Tamsulosin 0.4 Mg Capsule) 0.4 mg PO DAILY [facility] Last Admin: 12/10/24 07:42 Dose: 0.4 mg Temazepam (Temazepam 15 Mg Capsule) 30 mg PO BEDTIME [facility] Last Admin: 12/09/24 19:52 Dose: 30 mg Vitals/I&O/Wt Last Vital Signs Temp 97.7 F 12/10/24 07:37 Pulse 65 12/10/24 07:37 Resp 18 12/10/24 07:49 BP 107/64 12/10/24 07:37 Pulse Ox 98 12/10/24 07:49 O2 Del Method Room Air 12/10/24 07:37 12/09/24 12/10/24 12/10/24 22:59 06:59 14:59 Intake Total 480 / 960 240 / 1200 360 / 360 Output Total 600 / 1800 700 / 2500 200 / 200 Balance -120 / -840 -460 / -1300 160 / 160 Weight last 48 hrs Weight 81.193 kg Weight 81.329 kg Physical Exam 2 Narrative: Vital signs noted. Patient is comfortable in bed no apparent distress. HEENT normocephalic atraumatic. Neck is supple no JVP no carotid bruits. Lungs are clear to auscultation. Heart is regular without rubs or gallops. Abdomen is soft positive bowel sounds. Extremities have no edema. She has a femoral dialysis catheter. Neuro awake alert oriented x 3. Normal pulses Data 12/08/24 04:39 12/10/24 05:13 A&P Assessment and plan (1) Hypercalcemia: 1. Acute on chronic kidney disease stage III: Baseline creatinine is in the mid 3 range and renal function had been getting worse and now has severe DOMENIC with a creatinine of 7.5, unable to tolerate aggressive IV fluid resuscitation due to shortness of breath and volume overload. DOMENIC likely contributed from severe hypercalcemia and decreased p.o. intake - s/p temporary HD catheter placement , HD x 1 sessions , Cr plateaud today , will watch another 24-48 hours with out HD and make decision re : HD - Calcium remains 10.7. Will try to avoid Cinacalcet as I am concerned that she is status post parathyroidectomy and we are holding her current vitamin D and calcium and vitamin D analogs that she may become hypocalcemic. Will give IV fluids I discussed in detail with the patient that she really had CKD stage IV now with acute kidney injury and that she much her kidneys will recover. However we will monitor for renal recovery. Patient will need close outpatient follow-up with [employer] assistant principal either on dialysis or in his or her office on discharge ending away creatinine plateaus. 2. Severe hypercalcemia: Patient with extensive history of hyperparathyroidism with 3 parathyroid glands removed, last removal in October 2024-patient had postoperative severe hypocalcemia and was started on aggressive calcium supplementation with calcitriol, calcium carbonate and vitamin D. Now patient has severe hypercalcemia in the setting of DOMENIC. Holding all calcium supplements and vitamin D for now, check calcium levels daily, repeat PTH,-appropriately suppressed (PTH was 6 on 12/05/2024). - Will hold calcitonin at this time. Will give IV fluids and monitor. If patient comes short of breath add furosemide. -Need to follow with out pt Endocrinology closely 3. Anemia:, Will check iron studies and may require LUIS ENRIQUE 4. Hypertension: Well-controlled consider decreasing medications Patient evaluated using audiovisual cart with the aid of a nurse. Patient consented to hemodialysis as needed at the telehealth. (2) Renal failure (ARF), acute on chronic: See above working diagnosis is hypercalcemia and CKD stage IV. Plan IV fluids and monitor renal function PDMP PDMP Reviewed: Not Reviewed Attestations 2 Medical Necessity Statement*: Acute on chronic renal failure question of dialysis needs versus recovery Time Spent in Patient Care: 16 - 35 minutes (>than 50% of time sp ent in counselling and/or direct pt care on unit) . Coding Level of Care Code Acute Code for Chg Fwd Diagnoses Hypercalcemia E83.52 Renal failure (ARF), acute on chronic N17.9; N18.9 Acute renal failure type: unspecified Chronic kidney disease stage: unspecified stage
[2024-12-10] MEDS: sodium chloride 0.9% 1,000 ML 100 ML IV ×2 (09:06→16:59)
[2024-12-10] MEDS: ATORVASTATIN 10 MG TABLET PO (17:00)
--- NOTE | 2024-12-10 17:47 | PM.PN ---
Subjective Subjective: Denies any new complaints today. Creatinine stable at 6.0. Urine output nearly 2100 cc. Calcium is today at 10.7. Medications: Reviewed: Yes Medication Review Details: Current Medications Acetaminophen (Acetaminophen 325 Mg Tablet) 650 mg PO Q6H PRN PRN Reason: Mild/Mod Pain Or Temp >/= 101 Last Admin: 12/08/24 16:11 Dose: 650 mg Atorvastatin Calcium (Atorvastatin 10 Mg Tablet) 10 mg PO QPM [facility] Last Admin: 12/09/24 18:14 Dose: 10 mg Heparin Sodium (Porcine) (Heparin 5,000 Unit/Ml Inj 1 Ml) 5,000 unit SUBCUT BID@0900,2100 [facility] Last Admin: 12/10/24 07:42 Dose: 5,000 unit Hydralazine HCl (Hydralazine 20 Mg/Ml Inj 1 Ml) 10 mg IVP Q4H PRN PRN Reason: SBP>180mmHg or DBP>110mmHG Sodium Chloride (Sodium Chloride 0.9%) 1,000 mls @ 0 mls/hr IV .Q0M PRN PRN Reason: hypotension or symptomatic Albumin Human (Albumin) 12.5 gm in 50 mls @ 60 mls/hr IV PRN PRN PRN Reason: Hypotension and/or symptomatic Metoprolol Succinate (Metoprolol Succinate Er (24 Hr) 25 Mg Tablet) 25 mg PO BID [facility] Last Admin: 12/10/24 07:42 Dose: 25 mg Ondansetron HCl (Ondansetron 2 Mg/Ml Sdv 2 Ml) 4 mg IVP Q8H PRN PRN Reason: vomiting, or N/V if npo Oxycodone HCl (Oxycodone 5 Mg Ir Tab/Cap) 5 mg PO Q4H PRN PRN Reason: pain Last Admin: 12/10/24 07:49 Dose: 5 mg Tamsulosin HCl (Tamsulosin 0.4 Mg Capsule) 0.4 mg PO DAILY [facility] Last Admin: 12/10/24 07:42 Dose: 0.4 mg Temazepam (Temazepam 15 Mg Capsule) 30 mg PO BEDTIME [facility] Last Admin: 12/09/24 19:52 Dose: 30 mg Vitals/I&O/Wt Last Vital Signs Temp 97.6 F 12/10/24 16:00 Pulse 64 12/10/24 16:00 Resp 17 12/10/24 16:00 BP 117/75 12/10/24 16:00 Pulse Ox 95 12/10/24 16:00 O2 Del Method Room Air 12/10/24 16:00 12/10/24 12/10/24 12/10/24 06:59 14:59 22:59 Intake Total 240 / 1200 840 / 840 758.333 / 1598.333 Output Total 700 / 2500 800 / 800 Balance -460 / -1300 40 / 40 758.333 / 798.333 Weight last 48 hrs Weight 81.193 kg Weight 81.329 kg Physical Exam Narrative: General: No acute distress, AO x3 HEENT: PERRLA, pupils bilaterally equal and reactive, pallors not present Chest: Normal vesicular breath sounds, no added sounds, equal good air entry bilaterally CVS: S1-S2 regular, no murmurs, no tachycardia, no gallops, no rubs Abdomen: Soft, nontender, no organomegaly, bowel sounds present Neuro: No focal deficits, no facial deformity, AO x3, power 5/5 in all limbs Data 12/08/24 04:39 12/10/24 05:13 A&P Assessment and plan (1) Renal failure (ARF), acute on chronic: (2) Hypercalcemia: Plan (1) Renal failure (ARF), acute on chronic: (2) Hypercalcemia: (3) Insomnia: (4) HTN (hypertension): (5) Mixed hyperlipidemia: # Severe hypercalcemia -In the setting of history of hyperparathyroidism with recent third parathyroidectomy -She had hypocalcemia after recent surgery in October 2024 and received aggressive calcium supplementation with Calcitrol, calcium carbonate, vitamin D -Avoiding bisphosphonates due to DOMENIC -Continue calcitonin - Urology following, hemodialysis initiated #Acute kidney injury on CKD stage IV -Urology following, hemodialysis initiated -Nephrology following to evaluate need for further hemodialysis, chest - Patient may need outpatient hemodialysis #Hyperlipidemia - Continue statin #Hypertension - Continue metoprolol #Insomnia -Continue temazepam DVT prophylaxis: Heparin 04/12/2025 Chart reviewed. 54-year-old lady with CKD, currently admitted to the hospital with hypercalcemia and DOMENIC on CKD. She is status post hemodialysis on December 06, 2024 via temporary HD catheter. Since then creatinine appears to have stabilized at around 6. Patient's previous known baseline is between 3-4. Currently she is making good urine output at 2100 cc. She is getting IV fluids at 100 cc an hour. Would continue to closely monitor her urine output, electrolytes and creatinine clearance. If creatinine shows signs of improvement, patient may be able to discharge without hemodialysis as outpatient. Per discussion with nephrology would like to wait until Wednesday to closely monitor the above parameters. If signs of renal recovery are not imminent by then, will transition to tunneled HD catheter and plan for outpatient dialysis. Patient may need this for the next few weeks versus may be a permanent transition, difficult to be certain at this time. Calcium is improving at 10.7 today. Continue IV hydration. Should she develop signs of hypervolemia or pulmonary edema, would use Lasix for diuresis. Will discuss with her plumbing engineering draftsperson tomorrow regarding resuming calcium supplementation and to discuss calcium supplementation dosing. Likely that she will need to resume the supplementation given recent history of parathyroid removal. Patient states this was performed due to a history of adenomas. PDMP PDMP Reviewed: Not Reviewed Attestations Medical Necessity Statement*: Continue IV fluids, monitor for signs of renal recovery. Monitor calcium, continue to hold all calcium supplementation for now. Coding Level of Care Code Acute Code for Chg Fwd Diagnoses Renal failure (ARF), acute on chronic N17.9; N18.9 Acute renal failure type: unspecified Chronic kidney disease stage: unspecified stage Hypercalcemia E83.52
[2024-12-10] MEDS: temazepam 15 mg Capsule 30 MG PO (20:27)
[2024-12-11] VITALS (11 sets, daily range): BP systolic 98–157; BP diastolic 61–88; PULSE 58–71; RESP 16–19; TEMP 36.4–36.8; O2SAT 95–99
[2024-12-11] MEDS: sodium chloride 0.9% 1,000 ML 100 ML IV (03:28)
[2024-12-11] MEDS: tamsulosin 0.4 mg Capsule PO (07:30)
[2024-12-11] MEDS: heparin 5,000 unit/mL INJ 1 mL 5000 UNIT SUBCUT ×2 (07:30→21:39)
[2024-12-11] MEDS: acetaminophen 325 mg Tablet 650 MG PO (07:38)
--- NOTE | 2024-12-11 07:47 | P.PN_ITS ---
Subjective 2 Subjective: The patient was seen and examined she feels well. No nausea no vomiting no diarrhea no headaches. Blood pressure remains low she is urinating well. No diarrhea Medications: Reviewed: Yes Medication Review Details: Current Medications Acetaminophen (Acetaminophen 325 Mg Tablet) 650 mg PO Q6H PRN PRN Reason: Mild/Mod Pain Or Temp >/= 101 Last Admin: 12/11/24 07:38 Dose: 650 mg Atorvastatin Calcium (Atorvastatin 10 Mg Tablet) 10 mg PO QPM [facility] Last Admin: 12/10/24 17:00 Dose: 10 mg Heparin Sodium (Porcine) (Heparin 5,000 Unit/Ml Inj 1 Ml) 5,000 unit SUBCUT BID@0900,2100 [facility] Last Admin: 12/11/24 07:30 Dose: 5,000 unit Hydralazine HCl (Hydralazine 20 Mg/Ml Inj 1 Ml) 10 mg IVP Q4H PRN PRN Reason: SBP>180mmHg or DBP>110mmHG Sodium Chloride (Sodium Chloride 0.9%) 1,000 mls @ 0 mls/hr IV .Q0M PRN PRN Reason: hypotension or symptomatic Albumin Human (Albumin) 12.5 gm in 50 mls @ 60 mls/hr IV PRN PRN PRN Reason: Hypotension and/or symptomatic Sodium Chloride (Sodium Chloride 0.9%) 1,000 mls @ 100 mls/hr IV .Q10H [facility] Last Admin: 12/11/24 03:28 Dose: 100 mls/hr Metoprolol Succinate (Metoprolol Succinate Er (24 Hr) 25 Mg Tablet) 25 mg PO DAILY [facility] Last Admin: 12/11/24 07:30 Dose: Not Given Ondansetron HCl (Ondansetron 2 Mg/Ml Sdv 2 Ml) 4 mg IVP Q8H PRN PRN Reason: vomiting, or N/V if npo Oxycodone HCl (Oxycodone 5 Mg Ir Tab/Cap) 5 mg PO Q4H PRN PRN Reason: pain Last Admin: 12/10/24 20:26 Dose: 5 mg Tamsulosin HCl (Tamsulosin 0.4 Mg Capsule) 0.4 mg PO DAILY [facility] Last Admin: 12/11/24 07:30 Dose: 0.4 mg Temazepam (Temazepam 15 Mg Capsule) 30 mg PO BEDTIME [facility] Last Admin: 12/10/24 20:27 Dose: 30 mg Vitals/I&O/Wt Last Vital Signs Temp 98.3 F 12/11/24 04:00 Pulse 58 L 12/11/24 05:00 Resp 17 12/11/24 04:00 BP 99/62 12/11/24 04:00 Pulse Ox 98 12/11/24 00:00 O2 Del Method Room Air 12/11/24 04:00 12/10/24 12/11/24 12/11/24 22:59 06:59 14:59 Intake Total 1238.333 / 2078.333 1000 / 3078.333 Output Total 1100 / 1900 850 / 2750 Balance 138.333 / 178.333 150 / 328.333 Weight last 48 hrs Weight 78.471 kg Weight 81.193 kg Physical Exam 2 Narrative: Vital signs noted. Patient is comfortable in bed no apparent distress. HEENT normocephalic atraumatic. Neck is supple no JVP no carotid bruits. Lungs are clear to auscultation. Heart is regular without rubs or gallops. Abdomen is soft positive bowel sounds. Extremities have no edema. She has a right femoral dialysis catheter. Neuro awake alert oriented x 3. Normal pulses Data 12/08/24 04:39 12/10/24 05:13 A&P Assessment and plan (1) Hypercalcemia: 1. Acute on chronic kidney disease stage III: Baseline creatinine is in the mid 3 range and renal function had been getting worse and now has severe DOMENIC with a creatinine of 7.5. DOMENIC likely contributed from severe hypercalcemia and decreased p.o. intake - s/p temporary HD catheter placement , HD x 1 sessions , Cr plateaud today , will watch another 24-48 hours with out HD and make decision re : HD - Calcium remains 10.7. Will try to avoid Cinacalcet as I am concerned that she is status post parathyroidectomy and we are holding her current vitamin D and calcium and vitamin D analogs that she may become hypocalcemic. Will give IV fluids I discussed in detail with the patient that she really had CKD stage IV now with acute kidney injury and that we do not know how much of her kidneys will recover. However we will monitor for renal recovery. Patient will need close outpatient follow-up with medical instructor and orange picker machine operator on discharge -will remove femoral cstheter soon. will monitor for needs of Permacath 2. Severe hypercalcemia: Patient with extensive history of hyperparathyroidism with 3 parathyroid glands removed, last removal in October 2024-patient had postoperative severe hypocalcemia and was started on aggressive calcium supplementation with calcitriol, calcium carbonate and vitamin D. Now patient has severe hypercalcemia in the setting of DOMENIC. Holding all calcium supplements and vitamin D for now, check calcium levels daily, repeat PTH,-appropriately suppressed (PTH was 6 on 12/05/2024). - Will hold calcitonin at this time. Will give IV fluids and monitor. If patient comes short of breath add furosemide. -Need to follow with out pt Endocrinology closely 3. Anemia:, Will check iron studies and may require LUIS ENRIQUE 4. Hypertension: Well-controlled stop BP medications Patient evaluated using audiovisual cart with the aid of a nurse. Patient consented to hemodialysis as needed at the telehealth. (2) Renal failure (ARF), acute on chronic: See above working diagnosis is hypercalcemia and CKD stage IV. Plan IV fluids and monitor renal function PDMP PDMP Reviewed: Not Reviewed Attestations 2 Medical Necessity Statement*: domenic, hypercalcemia- monitoring for renal recovery Time Spent in Patient Care: 16 - 35 minutes (>than 50% of time sp ent in counselling and/or direct pt care on unit) . Coding Level of Care Code Acute Code for Chg Fwd Diagnoses Hypercalcemia E83.52 Renal failure (ARF), acute on chronic N17.9; N18.9 Acute renal failure type: unspecified Chronic kidney disease stage: unspecified stage
[2024-12-11 08:20] LABS: Alanine Aminotransferase 11 U/L (0-33); Albumin Level 3.3 g/dL (3.5-5.2); Alkaline Phosphatase 83 U/L (35-105); Aspartate Amino Transferase 12 U/L (0-32); Blood Urea Nitrogen 61 mg/dL (6-20); Calcium 9.8 mg/dL (8.5-10.5); Carbon Dioxide 17 mmol/L (22-29); Chloride 108 mmol/L (98-107); Creatinine Clr Calc Pharmacy 12.0294; Globulin 2.4 g/dL (1.3-4.6); Glomerular Filtration Rate 7.9 mL/min (90-130); Glucose 90 mg/dL (65-115); Magnesium 1.9 mg/dL (1.7-2.3); Osmolality Calculated 307 mOsm/kg (285-295); Phosphorus 4.5 mg/dL (2.5-4.5); Sodium 140 mmol/L (136-145); Total Bilirubin 0.2 mg/dL (0.15-1.2); Total Protein 5.7 g/dL (6.6-8.7)
[2024-12-11] MEDS: oxyCODONE 5 mg IR Tab/Cap PO ×2 (10:44→19:42)
[2024-12-11] MEDS: lactated ringers 1,000 ML 100 ML IV ×2 (12:10→21:40)
[2024-12-11 13:29] LABS: PROTEIN, TOTAL 6.2 g/dL (6.1-8.1)
[2024-12-11] MEDS: ATORVASTATIN 10 MG TABLET PO (17:01)
--- NOTE | 2024-12-11 17:01 | P.PN_ITS ---
Subjective 2 Subjective: Creatinine is trending down today at 5.6. Urine output at 2800 cc. Calcium of 9.8. Medications: Reviewed: Yes Medication Review Details: Current Medications Acetaminophen (Acetaminophen 325 Mg Tablet) 650 mg PO Q6H PRN PRN Reason: Mild/Mod Pain Or Temp >/= 101 Last Admin: 12/11/24 07:38 Dose: 650 mg Atorvastatin Calcium (Atorvastatin 10 Mg Tablet) 10 mg PO QPM [facility] Last Admin: 12/10/24 17:00 Dose: 10 mg Heparin Sodium (Porcine) (Heparin 5,000 Unit/Ml Inj 1 Ml) 5,000 unit SUBCUT BID@0900,2100 [facility] Last Admin: 12/11/24 07:30 Dose: 5,000 unit Hydralazine HCl (Hydralazine 20 Mg/Ml Inj 1 Ml) 10 mg IVP Q4H PRN PRN Reason: SBP>180mmHg or DBP>110mmHG Sodium Chloride (Sodium Chloride 0.9%) 1,000 mls @ 0 mls/hr IV .Q0M PRN PRN Reason: hypotension or symptomatic Albumin Human (Albumin) 12.5 gm in 50 mls @ 60 mls/hr IV PRN PRN PRN Reason: Hypotension and/or symptomatic Sodium Chloride (Sodium Chloride 0.9%) 1,000 mls @ 100 mls/hr IV .Q10H [facility] Last Admin: 12/11/24 03:28 Dose: 100 mls/hr Metoprolol Succinate (Metoprolol Succinate Er (24 Hr) 25 Mg Tablet) 25 mg PO DAILY [facility] Last Admin: 12/11/24 07:30 Dose: Not Given Ondansetron HCl (Ondansetron 2 Mg/Ml Sdv 2 Ml) 4 mg IVP Q8H PRN PRN Reason: vomiting, or N/V if npo Oxycodone HCl (Oxycodone 5 Mg Ir Tab/Cap) 5 mg PO Q4H PRN PRN Reason: pain Last Admin: 12/10/24 20:26 Dose: 5 mg Tamsulosin HCl (Tamsulosin 0.4 Mg Capsule) 0.4 mg PO DAILY [facility] Last Admin: 12/11/24 07:30 Dose: 0.4 mg Temazepam (Temazepam 15 Mg Capsule) 30 mg PO BEDTIME [facility] Last Admin: 12/10/24 20:27 Dose: 30 mg Vitals/I&O/Wt Last Vital Signs Temp 97.7 F 12/11/24 16:00 Pulse 63 12/11/24 16:00 Resp 17 12/11/24 16:00 BP 113/70 12/11/24 16:00 Pulse Ox 99 12/11/24 16:00 O2 Del Method Room Air 12/11/24 16:00 12/11/24 12/11/24 12/11/24 06:59 14:59 22:59 Intake Total 1000 / 3078.333 1590 / 1590 Output Total 850 / 2750 700 / 700 450 / 1150 Balance 150 / 328.333 890 / 890 -450 / 440 Weight last 48 hrs Weight 78.471 kg Weight 81.193 kg Physical Exam 2 Narrative: General: No acute distress, AO x3 HEENT: PERRLA, pupils bilaterally equal and reactive, pallors not present Chest: Normal vesicular breath sounds, no added sounds, equal good air entry bilaterally CVS: S1-S2 regular, no murmurs, no tachycardia, no gallops, no rubs Abdomen: Soft, nontender, no organomegaly, bowel sounds present Neuro: No focal deficits, no facial deformity, AO x3, power 5/5 in all limbs Data 12/08/24 04:39 12/11/24 07:22 A&P Assessment and plan (1) Renal failure (ARF), acute on chronic: (2) Hypercalcemia: Plan (1) Renal failure (ARF), acute on chronic: (2) Hypercalcemia: (3) Insomnia: (4) HTN (hypertension): (5) Mixed hyperlipidemia: # Severe hypercalcemia -In the setting of history of hyperparathyroidism with recent third parathyroidectomy -She had hypocalcemia after recent surgery in October 2024 and received aggressive calcium supplementation with Calcitrol, calcium carbonate, vitamin D -Avoiding bisphosphonates due to DOMENIC -Continue calcitonin - Urology following, hemodialysis initiated #Acute kidney injury on CKD stage IV -Urology following, hemodialysis initiated -Nephrology following to evaluate need for further hemodialysis, chest - Patient may need outpatient hemodialysis #Hyperlipidemia - Continue statin #Hypertension - Continue metoprolol #Insomnia -Continue temazepam DVT prophylaxis: Heparin 12/10/2024 Chart reviewed. 54-year-old lady with CKD, currently admitted to the hospital with hypercalcemia and DOMENIC on CKD. She is status post hemodialysis on December 06, 2024 via temporary HD catheter. Since then creatinine appears to have stabilized at around 6. Patient's previous known baseline is between 3-4. Currently she is making good urine output at 2100 cc. She is getting IV fluids at 100 cc an hour. Would continue to closely monitor her urine output, electrolytes and creatinine clearance. If creatinine shows signs of improvement, patient may be able to discharge without hemodialysis as outpatient. Per discussion with nephrology would like to wait until Wednesday to closely monitor the above parameters. If signs of renal recovery are not imminent by then, will transition to tunneled HD catheter and plan for outpatient dialysis. Patient may need this for the next few weeks versus may be a permanent transition, difficult to be certain at this time. Calcium is improving at 10.7 today. Continue IV hydration. Should she develop signs of hypervolemia or pulmonary edema, would use Lasix for diuresis. Will discuss with her medical coding instructor tomorrow regarding resuming calcium supplementation and to discuss calcium supplementation dosing. Likely that she will need to resume the supplementation given recent history of parathyroid removal. Patient states this was performed due to a history of adenomas. December 11, 2024 Creatinine is improving today down to 5.6. Urine output 2800 cc. Bicarb at 17, potassium normal at 4.0. No dialysis indicated today. Will remove the temporary femoral catheter. Closely monitor creatinine and electrolytes over the next 24 hours per discussion with nephrology. If patient has need for dialysis again, would likely plan on a permacath. Calcium today is 9.8. Close was placed to patient's medical coding instructor (Dr. Goetz) office at [facility]. I received a call back from the service PA Mr. Jai Plascencia who recommended holding off on any further calcium supplementation at discharge. They will plan to follow-up the patient as an expedited appointment after her hospital discharge and determine need to resume calcium supplementation at that point if calcium numbers start to drop. PDMP PDMP Reviewed: Not Reviewed Attestations 2 Medical Necessity Statement*: Awaiting evidence of continued recovery of renal function prior to discharge. Coding Level of Care Code Acute Code for Chg Fwd Diagnoses Renal failure (ARF), acute on chronic N17.9; N18.9 Acute renal failure type: unspecified Chronic kidney disease stage: unspecified stage Hypercalcemia E83.52
[2024-12-11] MEDS: temazepam 15 mg Capsule 30 MG PO (21:39)
--- NOTE | 2024-12-11 21:41 | PC.NURSE ---
Addendum entered by Edwin Browne RN 12/11/24 21:45: Pressure dressing was then applied to the site. Pt was educated to keep the site clean and dry. All questions were answered and education provided was verbally acknowledged. Original Note: Patients temporary Hemodialysis Catheter pulled per 's orders. Pt tolerated the procedure well. The catheter was completely intact after removal. No complications with removal were noted, pressure was held to achieve Hemostasis
[2024-12-12 03:23] VITALS: BP 152/84; PULSE 82; RESP 18; TEMP 36.4; O2SAT 94
[2024-12-12 05:26] VITALS: PULSE 82
[2024-12-12 05:54] LABS: Basophils # 0.1 10^3/uL (0.0-0.1); Basophils % 0.7 %; Eosinophils # 0.3 10^3/uL (0.0-0.8); Eosinophils % 4.2 %; Hematocrit 32.8 % (36-47); Lymphocytes # 2.4 10^3/uL (0.8-4.8); Mean Corpuscular HGB Conc 31.4 g/dL (30-55); Mean Corpuscular Hemoglobin 29.9 pg (27-33); Mean Corpuscular Volume 95.1 fl (85-98); Mean Platelet Volume 9.3 fL (7.4-10.4); Monocytes # 0.5 10^3/uL (0.2-0.9); Monocytes % 6.8 %; Neutrophils # 3.96 10^3/uL (1.8-7.7); Nucleated Red Blood Cells % 0 %; Platelet Count 232 10^3/cmm (157-399); Red Blood Count 3.45 10^6/uL (3.85-5.65); Red Cell Distribution Width 12.8 % (12.1-15.1); White Blood Count 7.19 10^3/uL (3.29-11.43)
[2024-12-12 06:25] LABS: Alanine Aminotransferase 12 U/L (0-33); Albumin Level 3.3 g/dL (3.5-5.2); Alkaline Phosphatase 90 U/L (35-105); Anion Gap 19.2 (5-19); Aspartate Amino Transferase 12 U/L (0-32); Blood Urea Nitrogen 53 mg/dL (6-20); Calcium 9.6 mg/dL (8.5-10.5); Carbon Dioxide 17 mmol/L (22-29); Chloride 109 mmol/L (98-107); Creatinine Clr Calc Pharmacy 12.7103; Globulin 2.6 g/dL (1.3-4.6); Glomerular Filtration Rate 8.5 mL/min (90-130); Glucose 87 mg/dL (65-115); Magnesium 1.8 mg/dL (1.7-2.3); Osmolality Calculated 306 mOsm/kg (285-295); Phosphorus 4.3 mg/dL (2.5-4.5); Potassium 4.2 mmol/L (3.5-5.1); Sodium 141 mmol/L (136-145); Total Bilirubin 0.2 mg/dL (0.15-1.2); Total Protein 5.9 g/dL (6.6-8.7)
[2024-12-12 07:25] VITALS: BP 116/66; PULSE 65; RESP 16; TEMP 36.4; O2SAT 96
[2024-12-12] MEDS: acetaminophen 325 mg Tablet 650 MG PO (09:05)
[2024-12-12] MEDS: oxyCODONE 5 mg IR Tab/Cap PO (09:05)
[2024-12-12] MEDS: heparin 5,000 unit/mL INJ 1 mL 5000 UNIT SUBCUT (09:06)
[2024-12-12] MEDS: metoprolol succinate ER (24 HR) 25 mg Tablet PO (09:06)
[2024-12-12] MEDS: tamsulosin 0.4 mg Capsule PO (09:06)
[2024-12-12] MEDS: lactated ringers 1,000 ML 100 ML IV (09:09)
--- NOTE | 2024-12-12 09:21 | PM.PN ---
Subjective Subjective: seen and examined. feels well. had a headache. no n/v/f/c/d/ leg pains or edema Medications: Reviewed: Yes Medication Review Details: Current Medications Acetaminophen (Acetaminophen 325 Mg Tablet) 650 mg PO Q6H PRN PRN Reason: Mild/Mod Pain Or Temp >/= 101 Last Admin: 12/11/24 07:38 Dose: 650 mg Atorvastatin Calcium (Atorvastatin 10 Mg Tablet) 10 mg PO QPM [facility] Last Admin: 12/11/24 17:01 Dose: 10 mg Heparin Sodium (Porcine) (Heparin 5,000 Unit/Ml Inj 1 Ml) 5,000 unit SUBCUT BID@0900,2100 [facility] Last Admin: 12/11/24 21:39 Dose: 5,000 unit Sodium Chloride (Sodium Chloride 0.9%) 1,000 mls @ 0 mls/hr IV .Q0M PRN PRN Reason: hypotension or symptomatic Albumin Human (Albumin) 12.5 gm in 50 mls @ 60 mls/hr IV PRN PRN PRN Reason: Hypotension and/or symptomatic Metoprolol Succinate (Metoprolol Succinate Er (24 Hr) 25 Mg Tablet) 25 mg PO DAILY [facility] Last Admin: 12/11/24 07:30 Dose: Not Given Ondansetron HCl (Ondansetron 2 Mg/Ml Sdv 2 Ml) 4 mg IVP Q8H PRN PRN Reason: vomiting, or N/V if npo Oxycodone HCl (Oxycodone 5 Mg Ir Tab/Cap) 5 mg PO Q8H PRN PRN Reason: pain Last Admin: 12/11/24 19:42 Dose: 5 mg Sodium Bicarbonate (Sodium Bicarbonate 650 Mg Tablet) 1,300 mg PO BID [facility] Tamsulosin HCl (Tamsulosin 0.4 Mg Capsule) 0.4 mg PO DAILY [facility] Last Admin: 12/11/24 07:30 Dose: 0.4 mg Temazepam (Temazepam 15 Mg Capsule) 30 mg PO BEDTIME [facility] Last Admin: 12/11/24 21:39 Dose: 30 mg Vitals/I&O/Wt Last Vital Signs Temp 97.5 F L 12/12/24 07:25 Pulse 65 12/12/24 07:25 Resp 16 12/12/24 07:25 BP 116/66 12/12/24 07:25 Pulse Ox 96 12/12/24 07:25 O2 Del Method Room Air 12/12/24 07:25 12/11/24 12/12/24 12/12/24 22:59 06:59 14:59 Intake Total 1640 / 3230 Output Total 1350 / 2050 1000 / 3050 Balance 290 / 1180 -1000 / 180 Weight last 48 hrs Weight 78.471 kg Weight 78.471 kg Physical Exam Narrative: Vital signs noted. Patient is comfortable in bed no apparent distress. HEENT normocephalic atraumatic. Neck is supple no JVP no carotid bruits. Lungs are clear to auscultation. Heart is regular without rubs or gallops. Abdomen is soft positive bowel sounds. Extremities have no edema. right femoral dialysis catheter removed. Neuro awake alert oriented x 3. Normal pulses Data 12/12/24 05:32 12/12/24 05:32 A&P Assessment and plan (1) Hypercalcemia: 1. Acute on chronic kidney disease stage III: Baseline creatinine is in the mid 3 range and renal function had been getting worse and now has severe DOMENIC with a creatinine of 7.5. DOMENIC likely contributed from severe hypercalcemia and decreased p.o. intake - s/p temporary HD catheter placement , HD x 1 sessions -cr and calcium have improved -dialysis catheter was removed -calcium improved to 9.6. Dr Addison spoke w/ pts emdocrinologist- plan is to hold calcium and vit d until they see her next week -no need for dialysis at this time I discussed in detail with the patient that she has CKD stage IV at baseline and now has improving acute kidney injury. -unfortunately, we do not know how much of her kidneys will recover. The Patient will need close outpatient follow-up with her auto haulaway driver on discharge 2. Anemia:,outp LUIS ENRIQUE 3. met acisosis- can restart her sodium bicarbonate as serum bicab is under 18- as per CKD KDIGO 2023 guidelines 4. Hypertension: Well-controlled, can stop BP medications Patient evaluated using audiovisual cart with the aid of a nurse. discussed w/ pt, Dr Ricardo and RN in detail (2) Renal failure (ARF), acute on chronic: See above working diagnosis is hypercalcemia and CKD stage IV. Plan discharge per hospitalist PDMP PDMP Reviewed: Not Reviewed Attestations Medical Necessity Statement*: domenic improving. d/c w/ outpt renal and endocrine f/u Time Spent in Patient Care: 16 - 35 minutes (>than 50% of time spent in counselling and/or direct pt care on unit). Coding Level of Care Code Acute Code for Chg Fwd Diagnoses Hypercalcemia E83.52 Renal failure (ARF), acute on chronic N17.9; N18.9 Acute renal failure type: unspecified Chronic kidney disease stage: unspecified stage
[2024-12-12 11:26] VITALS: BP 147/73; PULSE 72; RESP 15; TEMP 36.4; O2SAT 98
[2024-12-12 12:25] LABS: KAPPA LIGHT CHAIN, FREE, SERUM 115.9 mg/L (3.3-19.4); KAPPA/LAMBDA LIGHT CHAINS FREE 1.71 (0.26-1.65); LAMBDA LIGHT CHAIN, FREE, SERU 67.9 mg/L (5.7-26.3)
--- NOTE | 2024-12-12 13:29 | PC.NURSE ---
Discharge delayed d/t waiting for endocrinology office follow-up
[2024-12-12 13:30] VITALS: BP 147/73; PULSE 72; RESP 15; TEMP 36.4; O2SAT 98
--- NOTE | 2024-12-12 14:54 | PM.DCS ---
Discharge Providers Date of Admission: 12/06/24 10:27 Date of Discharge: December 12, 2024 Attending Provider at Admission: Erik Dominguez MD Attending Provider at Discharge: Jacqueline Ricardo MD Primary Care Provider: LOTUS Urban Diagnoses at Discharge Discharge Diagnosis (1) Hypercalcemia: Status: Acute (2) Renal failure (ARF), acute on chronic: Status: Acute Qualifiers: Acute renal failure type: unspecified Chronic kidney disease stage: unspecified stage Qualified Code(s): N17.9 - Acute kidney failure, unspecified; N18.9 - Chronic kidney disease, unspecified Reason for Visit Reason for Visit: Dr Sent Because of Lab Results Hospital Course Hospital Course 54-year-old lady with CKD, admitted to the hospital on 12/10 with hypercalcemia and DOMENIC on CKD. She is status post hemodialysis on December 06, 2024 via temporary HD catheter. Since then creatinine stabilized at 5.3-5.6. Patient's previous known baseline is between 3-4. Currently she is making good urine output at 2600 cc. She had hypercalcemia upon arrival with an increased calcium level at 15.7. With dialysis and IV hydration this has improved at the time of discharge down to 9.6. This was discussed with the lollypop machine operator SIMEON with whom patient follows at [facility]. Recommended to hold her doses of calcitriol and vitamin D2 at the time of discharge. Patient will be seen at their office in the next 7 to 10 days and get a repeat CMP before deciding on need to add calcium supplementation back. Patient follows with Dr. Char Nation from nephrology in [facility], their office was updated regarding patient's need to be seen within the next week for serial creatinine recheck. At this time anticipate that patient may continue to make renal recovery, therefore she is being discharged without plans for long-term dialysis at this point. However she should be closely monitored as an outpatient to reassess the situation. Dose of metoprolol was halved due to soft BP Physical Exam Narrative: General: No acute distress, AO x3 HEENT: PERRLA, pupils bilaterally equal and reactive, pallors not present Chest: Normal vesicular breath sounds, no added sounds, equal good air entry bilaterally CVS: S1-S2 regular, no murmurs, no tachycardia, no gallops, no rubs Abdomen: Soft, nontender, no organomegaly, bowel sounds present Neuro: No focal deficits, no facial deformity, AO x3, power 5/5 in all limbs EXT: No edema clubbing or lymphadenopathy Discharge Data Studies Completed and Pending Completed Studies During Hospitalization Category Date Time Status CT abdomen pelvis wo con [id number] Routine Cat Scan 12/06/24 09:20 Completed Pending at discharge Category Date Time Status Immunofixation Serum Routine Lab 12/09/24 Received Serum Protien Electrophoresis [Total Protein Lab 12/09/24 Results Electrophoresis] Routine Radiology Impressions Abdomen/Pelvis CT 12/06/24 09:20 IMPRESSION: 1. Multiple bilateral renal lesions and cysts. I am unable to totally exclude renal tumor on this study. You may wish to correlate with renal ultrasound or MRI for further evaluation. 2. Left renal stones COMMENTS: Consistent with the [employer]'s Incidental Findings Committee white paper (J Am Suzanna Radiol 2018): Any incidental renal lesion less than 1 cm or classified as too small to characterize, or any incidental cystic renal lesion characterized as simple-appearing, is likely benign. No follow-up imaging is recommended for these lesions per consensus recommendations based on imaging criteria. Laboratory Results WBC 7.19 10^3/uL (3.29-11.43) 12/12/24 05:32 RBC 3.45 10^6/uL (3.85-5.65) L 12/12/24 05:32 Hgb 10.30 g/dL (11.27-16.99) L 12/12/24 05:32 Hct 32.8 % (36-47) L 12/12/24 05:32 MCV 95.1 fl (85-98) 12/12/24 05:32 MCH 29.9 pg (27-33) 12/12/24 05:32 MCHC 31.4 g/dL (30-55) 12/12/24 05:32 RDW 12.8 % (12.1-15.1) 12/12/24 05:32 Plt Count 232 10^3/cmm (157-399) 12/12/24 05:32 MPV 9.3 fL (7.4-10.4) 12/12/24 05:32 Neut % (Auto) 55.0 % 12/12/24 05:32 Lymph % (Auto) 33.0 % 12/12/24 05:32 [place] % (Auto) 6.8 % 12/12/24 05:32 Eos % (Auto) 4.2 % 12/12/24 05:32 Baso % (Auto) 0.7 % 12/12/24 05:32 Neut # (Auto) 3.96 10^3/uL (1.8-7.7) 12/12/24 05:32 Lymph # (Auto) 2.4 10^3/uL (0.8-4.8) 12/12/24 05:32 [place] # (Auto) 0.5 10^3/uL (0.2-0.9) 12/12/24 05:32 Eos # (Auto) 0.3 10^3/uL (0.0-0.8) 12/12/24 05:32 Baso # (Auto) 0.1 10^3/uL (0.0-0.1) 12/12/24 05:32 Nucleated RBC % (auto) 0 % 12/12/24 05:32 Nucleated RBCs # 0.0 /100WBC 12/12/24 05:32 Sodium 141 mmol/L (136-145) 12/12/24 05:32 Potassium 4.2 mmol/L (3.5-5.1) 12/12/24 05:32 Chloride 109 mmol/L (98-107) H 12/12/24 05:32 Carbon Dioxide 17 mmol/L (22-29) L 12/12/24 05:32 Anion Gap 19.2 (5-19) H 12/12/24 05:32 BUN 53 mg/dL (6-20) H 12/12/24 05:32 Creatinine 5.3 mg/dL (0.5-0.9) H 12/12/24 05:32 GFR Calculation 8.5 mL/min (90-130) L 12/12/24 05:32 Glucose 87 mg/dL (65-115) 12/12/24 05:32 Calculated Osmolality 306 mOsm/kg (285-295) H 12/12/24 05:32 Calcium 9.6 mg/dL (8.5-10.5) 12/12/24 05:32 Ionized Calcium Rocky 1.7 mmol/L (1.1-1.4) H 12/06/24 04:28 Phosphorus 4.3 mg/dL (2.5-4.5) 12/12/24 05:32 Magnesium 1.8 mg/dL (1.7-2.3) 12/12/24 05:32 Total Bilirubin 0.2 mg/dL (0.15-1.2) 12/12/24 05:32 AST 12 U/L (0-32) 12/12/24 05:32 ALT 12 U/L (0-33) 12/12/24 05:32 Alkaline Phosphatase 90 U/L (35-105) 12/12/24 05:32 Total Protein 5.9 g/dL (6.6-8.7) L 12/12/24 05:32 Albumin 3.3 g/dL (3.5-5.2) L 12/12/24 05:32 Globulin 2.6 g/dL (1.3-4.6) 12/12/24 05:32 25-OH Vitamin D Total 33 ng/mL (30-100) 12/05/24 20:45 PTH Intact 6.0 pg/mL (15-65) L 12/09/24 03:54 Calcium (PTH Intact) 11.0 mg/dL (8.5-10.5) H 12/09/24 03:54 Urine Color Yellow (Yellow) 12/09/24 19:59 Urine Appearance Clear (CLEAR) 12/09/24 19:59 Urine pH 7.0 (5-7) 12/09/24 19:59 Ur Specific [place] 1.008 (1.005-1.030) 12/09/24 19:59 Urine Protein 1+ (Negative) A 12/09/24 19:59 Urine Glucose (UA) Negative (Normal) 12/09/24 19:59 Urine Ketones Negative (Negative) 12/09/24 19:59 Urine Blood Trace (Negative) A 12/09/24 19:59 Urine Nitrate Negative (Negative) 12/09/24 19:59 Urine Bilirubin Negative (Negative) 12/09/24 19:59 Urine Urobilinogen 0.2 mg/dL (Negative) 12/09/24 19:59 Ur Leukocyte Esterase Trace (Negative) A 12/09/24 19:59 Urine RBC 0-2 /hpf (0-2) 12/09/24 19:59 Urine WBC 0-5 /hpf (0-5) 12/09/24 19:59 Ur Squamous Epith Cells 0-5 /hpf (0-5) 12/09/24 19:59 Amorphous Sediment Not Reportable 12/09/24 19:59 Urine Bacteria None seen /hpf (NONE) 12/09/24 19:59 Hyaline Casts 0-4 /lpf H 12/09/24 19:59 Ur Random Sodium 41 mmol/L 12/05/24 21:09 Ur Random Potassium 22 mmol/L 12/05/24 21:09 Ur Random Chloride 18 mmol/L 12/05/24 21:09 Free Warner Light Chains 115.9 mg/L (3.3-19.4) H 12/10/24 05:13 Free Lambda Light Chain 67.9 mg/L (5.7-26.3) H 12/10/24 05:13 Free Warner/Lambda Ratio 1.71 (0.26-1.65) H 12/10/24 05:13 Hep Bs Antigen Non-reactive (Nonreactive) 12/06/24 04:34 Hep Bs Antibody 6.3 (11.5-1000) L 12/06/24 04:34 Vitals Last Vital Signs Temp 97.5 F L 12/12/24 13:30 Pulse 72 12/12/24 13:30 Resp 15 12/12/24 13:30 BP 147/73 12/12/24 13:30 Pulse Ox 98 12/12/24 13:30 O2 Del Method Room Air 12/12/24 11:26 Discharge Plan Discharge Patient Disposition: Home Condition: Stable Prescriptions: Continued atorvastatin 10 mg tablet 10 mg PO QPM Qty: 90 1RF temazepam 30 mg capsule 30 mg PO .HS Qty: 30 5RF tamsulosin 0.4 mg capsule 0.4 mg PO DAILY sodium bicarbonate 650 mg tablet 1,300 mg PO BID escitalopram oxalate 20 mg tablet 20 mg PO DAILY Rx Instructions: TAKE 1 TABLETS BY MOUTH ONCE DAILY Changed metoprolol succinate 25 mg tablet extended release 24 hr 25 mg PO DAILY Qty: 180 1RF Discontinued calcitriol 0.25 mcg capsule 0.25 mcg PO TID potassium chloride 20 mEq tablet,ER particles/crystals 40 meq PO BID ergocalciferol (vitamin D2) 1,250 mcg (50,000 unit) capsule 1,250 mcg PO Q7D Discharge Orders: Discharge Order (Routine); Ordered 12/12/24 Ordered By: Jacqueline Ricardo Referrals: Shraddha Parra FNP [Primary Care Provider, [facility]] - 12/20/24 12:00 pm Referral Note: Lee Goetz M.D. [Referring, Internal Medicine] - 12/22/24 10:15 am Char Nation DO [Referring, Internal Medicine] - 12/19/24 1:00 pm Patient Instructions: Acute Kidney Injury (GEN), Hypercalcemia (GEN), Opioid Safety Discharge Attestations Time Spent in Discharge Care*: greater than 30 min Quality Metrics Clinical Quality Measures [ No reported AMI, CVA or VTE this stay] Coding Level of Care Code Acute Code for Chg Fwd Diagnoses Hypercalcemia E83.52 Renal failure (ARF), acute on chronic N17.9; N18.9 Acute renal failure type: unspecified Chronic kidney disease stage: unspecified stage
[2024-12-13 13:04] LABS: ALBUMIN 3.5 g/dL (3.8-4.8); ALPHA 1 GLOBULIN 0.4 g/dL (0.2-0.3); ALPHA 2 GLOBULIN 0.8 g/dL (0.5-0.9); BETA 1 GLOBULIN 0.5 g/dL (0.4-0.6); BETA 2 GLOBULIN 0.3 g/dL (0.2-0.5); GAMMA GLOBULIN 0.8 g/dL (0.8-1.7)
[2024-12-13 23:41] LABS: Immunofixation Serum Normal pattern.
== END 2024-12-12 13:34 | disposition home or self-care (01) | DRG 641 ==
LOC: ER 22:04 → MEDSURG 22:11
PROVIDERS: Hospitalist; Internal Medicine Nephrology; Student in an Organized Health Care Education/Training Program; Admitting Provider Internal Medicine; Emergency Provider Emergency Medicine; PCP Nurse Practitioner Family; Visit Provider Student in an Organized Health Care Education/Training Program
DX: E83.52 Hypercalcemia (principal); N17.9 Acute kidney failure, unspecified; N18.4 Chronic kidney disease, stage 4 (severe); E87.20 Acidosis, unspecified; I12.9 Hypertensive chronic kidney disease with stage 1 through stage 4 chronic kidney disease, or unspecified chronic kidney disease; G47.00 Insomnia, unspecified; E78.2 Mixed hyperlipidemia; D64.9 Anemia, unspecified; Z87.891 Personal history of nicotine dependence; E89.2 Postprocedural hypoparathyroidism
CPT/HCPCS: 36415; 74176; 80053; 80069; 81001; 82306; 82310; 82330; 82436; 83735; 83883; 83970; 84100; 84133; 84155; 84165; 84300; 85025; 86334; 86706; 87340; 90935; 93005; 96372; 99285; G0378; J0630; J1644; J1938; J7030; J7120; J9999; Q3014

== ENCOUNTER → 2024-12-14 10:20 | Outpatient (BNVA) | payer MEDICARE, MEDICAID, SELFPAY | PROVIDERS: PCP Nurse Practitioner Family; Visit Provider Nurse Practitioner Family | DX: N17.9 Acute kidney failure, unspecified (principal); N18.9 Chronic kidney disease, unspecified; E83.52 Hypercalcemia | CPT/HCPCS: 80048; 82310; 83970 ==

== ENCOUNTER 2024-12-19 10:23 | Outpatient (CLI) | payer MEDICARE, MEDICAID, SELFPAY ==
[2024-12-19 11:45] LABS: Basophils # 0.1 10^3/uL (0.0-0.1); Basophils % 0.8 %; Eosinophils # 0.3 10^3/uL (0.0-0.8); Eosinophils % 3.1 %; Hematocrit 34.5 % (36-47); Lymphocytes # 1.7 10^3/uL (0.8-4.8); Lymphocytes % 19.7 %; Mean Corpuscular Hemoglobin 29.8 pg (27-33); Mean Corpuscular Volume 96.1 fl (85-98); Mean Platelet Volume 9.1 fL (7.4-10.4); Monocytes # 0.5 10^3/uL (0.2-0.9); Monocytes % 5.8 %; Neutrophils # 5.88 10^3/uL (1.8-7.7); Neutrophils % 70.2 %; Nucleated Red Blood Cells % 0 %; Platelet Count 321 10^3/cmm (157-399); Red Blood Count 3.59 10^6/uL (3.85-5.65); Red Cell Distribution Width 13.1 % (12.1-15.1); White Blood Count 8.38 10^3/uL (3.29-11.43)
[2024-12-19 12:01] LABS: Anion Gap 19.2 (5-19); Blood Urea Nitrogen 43 mg/dL (6-20); Calcium 8.2 mg/dL (8.5-10.5); Carbon Dioxide 25 mmol/L (22-29); Chloride 101 mmol/L (98-107); Glomerular Filtration Rate 7.1 mL/min (90-130); Glucose 102 mg/dL (65-115); Phosphorus 4.5 mg/dL (2.5-4.5); Potassium 4.2 mmol/L (3.5-5.1); Sodium 141 mmol/L (136-145)
[2024-12-19 12:17] LABS: Creatinine Urine, Random 96 mg/dL (28-217); Microalbumin Random Urine 10 ug/dL (0-20)
[2024-12-19 12:18] LABS: Microalbum Creatinine Ratio Ur 104 mg/dL (0-20)
== END 2024-12-19 10:24 | disposition home or self-care (01) ==
LOC: LAB 10:28
PROVIDERS: PCP Nurse Practitioner Family; Visit Provider Nurse Practitioner
DX: E87.6 Hypokalemia (principal); D63.1 Anemia in chronic kidney disease; N18.4 Chronic kidney disease, stage 4 (severe); N25.81 Secondary hyperparathyroidism of renal origin
CPT/HCPCS: 36415; 80069; 82044; 85025

== ENCOUNTER → 2025-03-26 10:02 | Outpatient (BNVA) | payer MEDICARE, MEDICAID, SELFPAY | PROVIDERS: PCP Nurse Practitioner Family; Visit Provider Nurse Practitioner Family | DX: E04.1 Nontoxic single thyroid nodule (principal); I10 Essential (primary) hypertension | CPT/HCPCS: 80061; 84443 ==

== ENCOUNTER → 2025-03-28 13:17 | Outpatient (BNVA) | payer MEDICARE, MEDICAID, SELFPAY | PROVIDERS: PCP Nurse Practitioner Family; Visit Provider Nurse Practitioner Family | DX: Z12.4 Encounter for screening for malignant neoplasm of cervix (principal) | CPT/HCPCS: 87624 ==

== ENCOUNTER 2025-04-04 10:11 | Outpatient (CLI) | payer MEDICARE, MEDICAID, SELFPAY ==
--- NOTE | 2025-04-04 10:18 | XR_ITS ---
WS: [id number] Lumbar spine, 3 views, 04/04/2025 Clinical Data: M54.50 - Low back pain, unspecified Comparison: SI joints, 04/09/2021 Findings: No lumbar compression fractures or subluxation is seen. No disc space narrowing is seen. The transverse processes and SI joints are normal. There may be an old compression fracture of the T11 vertebral body. There are cholecystectomy clips in the right upper quadrant. XR/XR lumbar spine 2-3V* [id number] Impression: Negative lumbar spine.
== END 2025-04-04 10:12 | disposition home or self-care (01) ==
PROVIDERS: PCP Nurse Practitioner Family; Visit Provider Nurse Practitioner Family
DX: M54.50 Low back pain, unspecified (principal); Z97.8 Presence of other specified devices
CPT/HCPCS: 72100

== ENCOUNTER → 2025-05-22 11:47 | Outpatient (BNVA) | payer MEDICARE, MEDICAID, SELFPAY | PROVIDERS: PCP Nurse Practitioner Family; Visit Provider Nurse Practitioner Family | DX: R39.89 Other symptoms and signs involving the genitourinary system (principal) | CPT/HCPCS: 81000; 81003; 87086 ==